=== PATIENT | female | born 1935 | race Two or more races ===

== ENCOUNTER 2019-09-18 19:37 | Inpatient (IN) | payer MEDICARE, OTHER ==
[2019-09-18] MEDS ORDERED: SODIUM CHLORIDE 0.9% 1,000 ML IV STA (20:18)
--- NOTE | 2019-09-18 21:18 | ED ---
Lower Extremity Injury HPI - General Chief Complaint: Skin/Abscess/Foreign Body Stated Complaint: Bilateral Leg Swelling Time Seen by Provider: 09/18/19 20:09 Source: patient Mode of arrival: wheelchair Limitations: no limitations - History of Present Illness Initial Comments: This is a 84-year-old female to the ER for evaluation of significant lower ex tremity weakness swelling and edema redness and erythema not feeling well. Patient's been getting worse despite outpatient Treatment. Patient states she is starting to have some significant pain and weeping from both legs difficulty to amply secondary to pain. MD Complaint: other (Bilateral lower extremity swelling and erythema with drainage) -: week(s) Injury: Ankle: Right, Left, Foot: Right, Left Type of Injury: other (No injury just significant sialitis infection) Place: home Severity: severe Severity scale (1-10): 10 Improves With: nothing Worsens With: weight bearing, movement, palpation Context: other (No injury just infection) Associated Symptoms: swelling, numbness - Related Data Home Medications Medication Instructions Recorded Confirmed Apixaban [Eliquis] 5 mg PO BID@0700,1900 09/18/19 09/18/19 Ascorbic Acid [Vitamin C] 500 mg PO DAILY 09/18/19 09/18/19 Atorvastatin [Lipitor] 10 mg PO HS 09/18/19 09/18/19 Carvedilol [Coreg] 6.25 mg PO BID 09/18/19 09/18/19 Cholecalciferol [Vitamin D3 (25 1,000 unit PO DAILY 09/18/19 09/18/19 Mcg = 1000 Iu)] Famotidine [Pepcid] 20 mg PO BID 09/18/19 09/18/19 Furosemide [Lasix] 40 mg PO DAILY 09/18/19 09/18/19 Losartan Potassium [Cozaar] 100 mg PO DAILY 09/18/19 09/18/19 Turmeric Root Extract [Turmeric] 500 mg PO DAILY 09/18/19 09/18/19 Vitamin E 400 unit PO HS 09/18/19 09/18/19 amLODIPine [Norvasc] 5 mg PO DAILY@1500 09/18/19 09/18/19 Allergies Allergy/AdvReac Type Severity Reaction Status Date / Time No Known Allergies Allergy Verified 09/18/19 21:28 Review of Systems ROS Statement: Those systems with pertinent positive or pertinent negative responses have been documented in the HPI. ROS Other: All systems not noted in ROS Statement are negative. Past Medical History Past Medical History: GERD/Reflux, Hyperlipidemia, Hypertension History of Any Multi-Drug Resistant Organisms: None Reported Past Surgical History: Hernia Repair Additional Past Surgical History / Comment(s): breast CA removal, "blood clot removal" Past Psychological History: No Psychological Hx Reported Smoking Status: Never smoker Past Alcohol Use History: None Reported Past Drug Use History: None Reported General Exam Limitations: no limitations General appearance: alert, in no apparent distress Head exam: Present: atraumatic, normocephalic, normal inspection Eye exam: Present: normal appearance, PERRL, EOMI. Absent: scleral icterus, conjunctival injection, periorbital swelling ENT exam: Present: normal exam, mucous membranes moist Neck exam: Present: normal inspection. Absent: tenderness, meningismus, lymphadenopathy Respiratory exam: Present: normal lung sounds bilaterally. Absent: respiratory distress, wheezes, rales, rhonchi, stridor Cardiovascular Exam: Present: regular rate, normal rhythm, normal heart sounds. Absent: systolic murmur, diastolic murmur, rubs, gallop, clicks GI/Abdominal exam: Present: soft, normal bowel sounds. Absent: distended, tenderness, guarding, rebound, rigid Extremities exam: Present: normal inspection, full ROM, tenderness, normal capillary refill, pedal edema, other (Bilateral lower extremity from foot to knee significant sialitis with erythema). Absent: joint swelling, calf tenderness Back exam: Present: normal inspection Neurological exam: Present: alert, oriented X3, CN II-XII intact Psychiatric exam: Present: normal affect, normal mood Skin exam: Present: warm, dry, intact, normal color. Absent: rash Course Vital Signs 09/18/19 09/18/19 19:48 21:15 Temperature 98.0 F Pulse Rate 83 85 Respiratory 18 20 Rate Blood Pressure 99/63 102/45 O2 Sat by Pulse 97 Oximetry - Reevaluation(s) Reevaluation #1: 09/18/19 22:08 Medical record is reviewed Reevaluation #2: 09/18/19 22:08 Patient says redness and swelling of both legs increasing despite treatment - Consultations Consultation #1: Spoke with Dr. maynor mcfarland to admit to Dr. Montague Medical Decision Making - Medical Decision Making 84 female DF for evaluation patient has significant bilateral lower extremity swelling edema erythema cellulitis with weeping and drainage. A she'll admit for IV antibiotics - Lab Data Result diagrams: 09/18/19 21:20 09/18/19 21:20 Lab Results 09/18/19 09/18/19 09/18/19 Range/Units 21:20 21:20 21:20 WBC 10.9 H (3.8-10.6) k/uL RBC 4.27 (3.80-5.40) m/uL Hgb 13.0 (11.4-16.0) gm/dL Hct 38.6 (34.0-46.0) % MCV 90.5 (80.0-100.0) fL MCH 30.4 (25.0-35.0) pg MCHC 33.6 (31.0-37.0) g/dL RDW 12.4 (11.5-15.5) % Plt Count 406 (150-450) k/uL Neutrophils % 79 % Lymphocytes % 14 % Monocytes % 4 % Eosinophils % 1 % Basophils % 0 % Neutrophils # 8.6 H (1.3-7.7) k/uL Lymphocytes # 1.5 (1.0-4.8) k/uL Monocytes # 0.5 (0-1.0) k/uL Eosinophils # 0.2 (0-0.7) k/uL Basophils # 0.0 (0-0.2) k/uL PT 10.4 (9.0-12.0) sec INR 1.0 (<1.2) APTT 27.9 (22.0-30.0) sec Sodium 133 L (137-145) mmol/L Potassium 4.2 (3.5-5.1) mmol/L Chloride 98 (98-107) mmol/L Carbon Dioxide 25 (22-30) mmol/L Anion Gap 10 mmol/L BUN 62 H (7-17) mg/dL Creatinine 0.79 (0.52-1.04) mg/dL Est GFR (CKD-EPI)AfAm 81 (>60 ml/min/1.73 sqM) Est GFR (CKD-EPI)NonAf 70 (>60 ml/min/1.73 sqM) Glucose 116 H (74-99) mg/dL Plasma Lactic Acid Edgar (0.7-2.0) mmol/L Calcium 9.4 (8.4-10.2) mg/dL Phosphorus 3.8 (2.5-4.5) mg/dL Magnesium 2.5 H (1.6-2.3) mg/dL Total Bilirubin 0.5 (0.2-1.3) mg/dL AST 19 (14-36) U/L ALT 15 (4-34) U/L Alkaline Phosphatase 87 (38-126) U/L Troponin I (0.000-0.034) ng/mL NT-Pro-B Natriuret Pep pg/mL Total Protein 7.0 (6.3-8.2) g/dL Albumin 3.7 (3.5-5.0) g/dL 09/18/19 09/18/19 09/18/19 Range/Units 21:20 21:20 21:20 WBC (3.8-10.6) k/uL RBC (3.80-5.40) m/uL Hgb (11.4-16.0) gm/dL Hct (34.0-46.0) % MCV (80.0-100.0) fL MCH (25.0-35.0) pg MCHC (31.0-37.0) g/dL RDW (11.5-15.5) % Plt Count (150-450) k/uL Neutrophils % % Lymphocytes % % Monocytes % % Eosinophils % % Basophils % % Neutrophils # (1.3-7.7) k/uL Lymphocytes # (1.0-4.8) k/uL Monocytes # (0-1.0) k/uL Eosinophils # (0-0.7) k/uL Basophils # (0-0.2) k/uL PT (9.0-12.0) sec INR (<1.2) APTT (22.0-30.0) sec Sodium (137-145) mmol/L Potassium (3.5-5.1) mmol/L Chloride (98-107) mmol/L Carbon Dioxide (22-30) mmol/L Anion Gap mmol/L BUN (7-17) mg/dL Creatinine (0.52-1.04) mg/dL Est GFR (CKD-EPI)AfAm (>60 ml/min/1.73 sqM) Est GFR (CKD-EPI)NonAf (>60 ml/min/1.73 sqM) Glucose (74-99) mg/dL Plasma Lactic Acid Edgar 1.1 (0.7-2.0) mmol/L Calcium (8.4-10.2) mg/dL Phosphorus (2.5-4.5) mg/dL Magnesium (1.6-2.3) mg/dL Total Bilirubin (0.2-1.3) mg/dL AST (14-36) U/L ALT (4-34) U/L Alkaline Phosphatase (38-126) U/L Troponin I <0.012 (0.000-0.034) ng/mL NT-Pro-B Natriuret Pep 992 pg/mL Total Protein (6.3-8.2) g/dL Albumin (3.5-5.0) g/dL - EKG Data -: EKG Interpreted by Me (EKG shows A. fib rate of 82, QRS 98 QTc 4:15) Disposition Clinical Impression: Bilateral lower leg cellulitis Disposition: ADMITTED IP TO THIS HOSP Condition: Good Is patient prescribed a controlled substance at d/c from ED?: No Referrals: Alex Gomez MD [Primary Care Provider] - 1-2 days
[2019-09-18 21:30] LABS: Basophils % (A) 0 %; Eosinophils # (A) 0.2 k/uL (0-0.7); Eosinophils % (A) 1 %; HCT 38.6 % (34.0-46.0); Lymphocytes # (A) 1.5 k/uL (1.0-4.8); Lymphocytes % (A) 14 %; MCH 30.4 pg (25.0-35.0); MCHC 33.6 g/dL (31.0-37.0); MCV 90.5 fL (80.0-100.0); Mean Platelet Volume 7.2; Monocytes # (A) 0.5 k/uL (0-1.0); Monocytes % (A) 4 %; Neutrophils # (A) 8.6 k/uL (1.3-7.7); Neutrophils % (A) 79 %; Platelet Count 406 k/uL (150-450); RBC 4.27 m/uL (3.80-5.40); RDW 12.4 % (11.5-15.5); WBC 10.9 k/uL (3.8-10.6)
[2019-09-18 21:44] LABS: Partial Thromboplastin Time 27.9 sec (22.0-30.0); Prothrombin Time 10.4 sec (9.0-12.0)
[2019-09-18 21:46] LABS: Albumin 3.7 g/dL (3.5-5.0); Calcium 9.4 mg/dL (8.4-10.2); Magnesium 2.5 mg/dL (1.6-2.3); Phosphorus 3.8 mg/dL (2.5-4.5); Potassium 4.2 mmol/L (3.5-5.1); Total Bilirubin 0.5 mg/dL (0.2-1.3)
[2019-09-18] MEDS ORDERED: VANCOMYCIN IV PER PHARMACY 1 EACH MISC MISCELLANE PRN (22:55)
[2019-09-18] MEDS ORDERED: VANCOMYCIN 1,750 MG in SODIUM CHLORIDE 0.9% 500 ML 500 ML IVPB ONE (23:15)
[2019-09-18 23:32] LABS: Appearance,Urine Cloudy (Clear); Bacteria,Urine Occasional /hpf; Bilirubin,Urine Negative (Negative); Blood,Urine Negative (Negative); Color,Urine Yellow; Glucose,Urine (UA) Negative (Negative); Hyaline Casts,Urine 5 /lpf (0-2); Ketones,Urine Negative (Negative); Leukocyte Esterase,Urine Moderate (Negative); Mucus,Urine Rare /hpf; Nitrite,Urine Negative (Negative); Protein,Urine Negative (Negative); RBC,Urine 27 /hpf (0-5); Squamous Epithelial Cell,Urine 3 /hpf (0-4); Urobilinogen,Urine <2.0 mg/dL (<2.0); WBC,Urine 9 /hpf (0-5)
[2019-09-19] MEDS: ACETAMINOPHEN TAB 325 MG TAB PO PRN (01:29)
[2019-09-19 08:06] LABS: African American GFR (CKD) >90 (>60 ml/min/1.73 sqM); Non-African American GFR(CKD) 84 (>60 ml/min/1.73 sqM)
[2019-09-19] MEDS: ENOXAPARIN 40 MG/0.4 ML SYRINGE SQ SCH (08:17)
[2019-09-19] MEDS: FAMOTIDINE 20 MG TAB PO SCH ×2 (08:28→20:53)
[2019-09-19] MEDS: LOSARTAN 50 MG TAB PO SCH (08:28)
[2019-09-19] MEDS: CHOLECALCIFEROL 1,000 UNIT TAB PO SCH (08:28)
[2019-09-19] MEDS: FUROSEMIDE 40 MG TAB PO SCH (08:28)
[2019-09-19] MEDS: ASCORBIC ACID 500 MG TAB PO SCH (08:28)
--- NOTE | 2019-09-19 11:42 | US ---
EXAMINATION TYPE: US venous doppler duplex LE DATE OF EXAM: 09/19/2019 9:16 AM COMPARISON: NONE CLINICAL HISTORY: edema, pain. SIDE PERFORMED: Bilateral TECHNIQUE: The lower extremity deep venous system is examined utilizing real time linear array sonog glenys with graded compression, doppler sonography and color-flow sonography. VESSELS IMAGED: External Iliac Vein (EIV) Common Femoral Vein Deep Femoral Vein Greater Saphenous Vein * Femoral Vein Popliteal Vein Small Saphenous Vein * Proximal Calf Veins, not seen due to swelling and large body habitus (* superficial vessels) Patient of large body habitus. There is normal flow, compressibility, vascular waveforms Right Leg: Negative for DVT Left Leg: Negative for DVT Edema channels are noted within the right lower extremity subcutaneous tissues. 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 IMPRESSION: No evident deep venous thrombosis at or above the knees. 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
--- NOTE | 2019-09-19 12:20 | P.HPIM ---
History of Present Illness H&P Date: 09/19/19 Chief Complaint: Redness bilat legs This is an 84-year-old female patient of Dr. Alex Gomez with past medical history of DVT in the left lower extremity subsequently finding PFO which has been closed by Dr. Pope and DVT of the right arm status post thrombectomy, hypertension, hyperlipidemia, right-sided breast cancer status post lumpectomy and radiation therapy without chemotherapy. Patient states that she has had ongoing problems with lower extremity edema and redness this been ongoing for several months but due to Covid concerns, did not seek treatment. She did finally see her doctor 2 weeks ago and was placed on Keflex and completed a 10 day course. She was continuing to have significant pain and weeping from both legs. She denies any fever or chills. On Wednesday she was trying to reach her PCP by phone but her daughter wanted her to come into the hospital for evaluation. Patient came into [facility] emergency center for evaluation. She was afebrile, heart rate 83, blood pressure 99/63, pulse ox 97% on room air. Yazmin BC 10.9, hemoglobin 13, platelet count 406. Sodium 133, potassium 4.2, chloride 98, CO2 25, BUN 62 and creatinine 0.79, blood sugar 116. Magnesium 2.5, liver function tests within normal limits. Troponin negative. ProBNP 992. EKG atrial fibrillation at a rate of 82. No previous history of atrial fibrillation noted. Ultrasound of bilateral lower legs negative for DVT. 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 Patient was started on Rocephin and vancomycin and admitted to the [facility] floor. Consults placed with wound care team, Dr. Benoit and cardiology. Review of Systems Constitutional: Reports fatigue, Denies anorexia, Denies chills, Denies fever, Denies lethargy, Denies malaise, Denies poor appetite, Denies weight loss Eyes: denies blurred vision, denies pain Ears: bilateral: decreased hearing (chronic) Ears, nose, mouth and throat: Denies dysphagia, Denies headache, Denies nasal congestion, Denies nasal discharge, Denies sore throat, Denies vertigo Cardiovascular: Reports leg edema, Denies chest pain, Denies dyspnea on exertion, Denies edema, Denies lightheadedness, Denies orthopnea, Denies palpitations, Denies shortness of breath, Denies syncope Respiratory: Denies cough, Denies cough with sputum, Denies dyspnea, Denies excessive sputum, Denies hemoptysis, Denies home oxygen, Denies respiratory infections, Denies wheezing Gastrointestinal: Denies abdominal pain, Denies diarrhea, Denies loss of appetite, Denies nausea, Denies vomiting Genitourinary: Denies dysuria, Denies hematuria, Denies urgency, Denies urinary frequency Menstruation: Reports postmenopausal Musculoskeletal: Reports muscle weakness, Denies frequent falls, Denies myalgias Integumentary: Reports color changes, Reports darkening of skin, Reports lesions, Reports sores, Reports wounds, Denies pruritus, Denies rash Psychiatric: Denies anxiety, Denies depression Endocrine: Denies fatigue, Denies weight change Past Medical History Past Medical History: Deep Vein Thrombosis (DVT), GERD/Reflux, Hyperlipidemia, Hypertension History of Any Multi-Drug Resistant Organisms: None Reported Past Surgical History: Hernia Repair Additional Past Surgical History / Comment(s): breast CA right-sided lumpectomy and radiation therapy at [facility], ventral hernia repair, hysterectomy, repair of PFO and thrombectomy of the right arm. Past Anesthesia/Blood Transfusion Reactions: No Reported Reaction Past Psychological History: No Psychological Hx Reported Smoking Status: Never smoker Past Alcohol Use History: None Reported Additional Past Alcohol Use History / Comment(s): Patient is a lifelong nonsmoker, no marijuana use, no illicit drug use or marijuana use. Patient is and her daughter lives with her. She worked in the past for [employer] and the [employer]. Past Drug Use History: None Reported - Past Family History Mother Family Medical History: CVA/TIA Additional Family Medical History / Comment(s): Pt. states mother at 52 from a stroke Father Additional Family Medical History / Comment(s): Father at age 57 from a motor vehicle accident. Sister(s) Additional Family Medical History / Comment(s): The patient has 2 sisters. One sister has from breast cancer and one is alive with no major medical problems. Patient does not have any brothers. Patient has 4 children with no major medical problems. Medications and Allergies Home Medications Medication Instructions Recorded Confirmed Type Apixaban [Eliquis] 5 mg PO BID@0700,1900 09/18/19 09/18/19 History Ascorbic Acid [Vitamin C] 500 mg PO DAILY 09/18/19 09/18/19 History Atorvastatin [Lipitor] 10 mg PO HS 09/18/19 09/18/19 History Carvedilol [Coreg] 6.25 mg PO BID 09/18/19 09/18/19 History Cholecalciferol [Vitamin D3 (25 1,000 unit PO DAILY 09/18/19 09/18/19 History Mcg = 1000 Iu)] Famotidine [Pepcid] 20 mg PO BID 09/18/19 09/18/19 History Furosemide [Lasix] 40 mg PO DAILY 09/18/19 09/18/19 History Losartan Potassium [Cozaar] 100 mg PO DAILY 09/18/19 09/18/19 History Turmeric Root Extract [Turmeric] 500 mg PO DAILY 09/18/19 09/18/19 History Vitamin E 400 unit PO HS 09/18/19 09/18/19 History amLODIPine [Norvasc] 5 mg PO DAILY@1500 09/18/19 09/18/19 History Allergies Allergy/AdvReac Type Severity Reaction Status Date / Time No Known Allergies Allergy Verified 09/18/19 21:28 Physical Exam Vitals: Vital Signs Temp Pulse Pulse Resp BP BP Pulse Ox 09/19/19 06:50 98.4 F 95 16 131/66 95 09/18/19 23:35 97.5 F L 90 14 106/64 98 09/18/19 23:14 99.2 F 88 20 113/56 98 09/18/19 22:00 99.1 F 90 20 119/66 98 09/18/19 21:15 85 20 102/45 97 09/18/19 19:48 98.0 F 83 18 99/63 Intake and Output 09/18/19 09/19/19 09/19/19 22:59 06:59 14:59 Other: Voiding Method Bedside Commode # Voids 1 Weight 104.326 kg 104.326 kg Gen: This is an obese 84-year-old female. She is resting in bed and appears to be comfortable and in no acute distress. HEENT: Head is atraumatic, normocephalic. Pupils equal, round. Sclerae is anicteric. Patient very hard of hearing. NECK: Supple. No JVD. No lymphadenopathy. No thyromegaly. LUNGS: Clear to auscultation. No wheezes or rhonchi. No intercostal retractions. HEART: Regular rate and rhythm. Systolic murmur at the apex. ABDOMEN: Soft. Bowel sounds are present. No masses. No tenderness. EXTREMITIES: 1-2+ pedal edema. Erythema and open areas of weeping to the bilateral lower extremities. NEUROLOGICAL: Patient is awake, alert and oriented x3. Cranial nerves 2 through 12 are grossly intact. Results CBC & Chem 7: 09/18/19 21:20 09/19/19 07:20 Labs: Abnormal Lab Results - Last 24 Hours (Table) 09/18/19 09/18/19 09/18/19 Range/Units 21:20 21:20 23:20 WBC 10.9 H (3.8-10.6) k/uL Neutrophils # 8.6 H (1.3-7.7) k/uL Sodium 133 L (137-145) mmol/L BUN 62 H (7-17) mg/dL Glucose 116 H (74-99) mg/dL Magnesium 2.5 H (1.6-2.3) mg/dL Urine Appearance Cloudy H (Clear) Ur Leukocyte Esterase Moderate H (Negative) Urine RBC 27 H (0-5) /hpf Urine WBC 9 H (0-5) /hpf Urine Bacteria Occasional H (None) /hpf Hyaline Casts 5 H (0-2) /lpf Urine Mucus Rare H (None) /hpf Thrombosis Risk Factor Assmnt - DVT/VTE Prophylaxis DVT/VTE Prophylaxis: Pharmacologic Prophylaxis ordered - Choose All That Apply Each Factor Represents 1 point: Obesity (BMI >25), Swollen legs (current) Each Risk Factor Represents 3 Points: Age 75 years or older, History of DVT/PE Thrombosis Risk Factor Assessment Total Risk Factor Score: 8 Thrombosis Risk Factor Assessment Level: High Risk Assessment and Plan Plan: 1. Bilateral lower extremity cellulitis, failed outpatient treatment with oral Keflex. Patient is currently on vancomycin and ceftriaxone. Consult placed with wound care team and infectious disease. Bilateral lower extremity ultrasound negative for DVT. Wound culture in process. 2. Hypertension. Continue Norvasc 5 mg daily, losartan 100 mg daily, Coreg 6.25 mg twice daily, Lasix 40 mg daily. 3. Possible new onset of atrial fibrillation. Consult with cardiology. Patient is known to be on Coreg and eliquis. Patient denies history of atrial fibrillation. 4. History of PFO, surgically close by Dr. Pope. 5. History of left lower extremity DVT and left arm DVT status post thrombectomy. Continue eliquis. 6. Hyperlipidemia. Continue atorvastatin 10 mg at bedtime. 7. History of right-sided breast cancer status post lumpectomy and radiation therapy, stable 8. DVT prophylaxis. Eliquis. 9. GERD and GI prophylaxis. Pepcid. 10. COVID-19 infection testing in process Patient will be admitted to the hospital for a minimum of 2 night stay. Discharge plan: most likely home, possible home care need. Impression and plan of care have been directed as dictated by the signing physician. Radhika Gu nurse practitioner acting as scribe for signing physician.
--- NOTE | 2019-09-19 12:23 | P.CONS ---
History of Present Illness - Reason for Consult Consult date: 09/19/19 Wound care - History of Present Illness This is an 84-year-old patient being seen by the wound care center on [address] for nonhealing ulcerations to bilateral lower extremities. Patient states that the ulceration started about 6 weeks ago. The right leg is worse than the left leg. Patient has increased redness to bilateral lower extremity. The right lower extremity has purulent drainage. Patient complains of pain more to the right than left especially with palpation. Patient's past medical history includes DVT, acid reflux, hyperlipidemia, hypertension. Ulcers obtained of bilateral lower legs awaiting results. Review of Systems Review Of Systems: Constitutional: Reports pain to bilateral lower extremities. No fever, no chills, no night sweats. No weight change. No weakness, fatigue or lethargy. No daytime sleepiness. Integumentary:reports wounds, no lesions. No rash or pruritus. No unusual bruising. No change in hair or nails. Past Medical History Past Medical History: Deep Vein Thrombosis (DVT), GERD/Reflux, Hyperlipidemia, Hypertension Additional Past Medical History / Comment(s): Pt. states having multiple abdominal hernias in the past History of Any Multi-Drug Resistant Organisms: None Reported Past Surgical History: Hernia Repair Additional Past Surgical History / Comment(s): breast CA removal, "blood clot removal" Past Anesthesia/Blood Transfusion Reactions: No Reported Reaction Past Psychological History: No Psychological Hx Reported Smoking Status: Never smoker Past Alcohol Use History: None Reported Past Drug Use History: None Reported - Past Family History Mother Family Medical History: CVA/TIA Additional Family Medical History / Comment(s): Pt. states mother at 52 from a stroke Medications and Allergies Home Medications Medication Instructions Recorded Confirmed Type Apixaban [Eliquis] 5 mg PO BID@0700,1900 09/18/19 09/18/19 History Ascorbic Acid [Vitamin C] 500 mg PO DAILY 09/18/19 09/18/19 History Atorvastatin [Lipitor] 10 mg PO HS 09/18/19 09/18/19 History Carvedilol [Coreg] 6.25 mg PO BID 09/18/19 09/18/19 History Cholecalciferol [Vitamin D3 (25 1,000 unit PO DAILY 09/18/19 09/18/19 History Mcg = 1000 Iu)] Famotidine [Pepcid] 20 mg PO BID 09/18/19 09/18/19 History Furosemide [Lasix] 40 mg PO DAILY 09/18/19 09/18/19 History Losartan Potassium [Cozaar] 100 mg PO DAILY 09/18/19 09/18/19 History Turmeric Root Extract [Turmeric] 500 mg PO DAILY 09/18/19 09/18/19 History Vitamin E 400 unit PO HS 09/18/19 09/18/19 History amLODIPine [Norvasc] 5 mg PO DAILY@1500 09/18/19 09/18/19 History Allergies Allergy/AdvReac Type Severity Reaction Status Date / Time No Known Allergies Allergy Verified 09/18/19 21:28 Physical Exam Vitals: Vital Signs Temp Pulse Pulse Resp BP BP Pulse Ox 09/19/19 06:50 98.4 F 95 16 131/66 95 09/18/19 23:35 97.5 F L 90 14 106/64 98 09/18/19 23:14 99.2 F 88 20 113/56 98 09/18/19 22:00 99.1 F 90 20 119/66 98 09/18/19 21:15 85 20 102/45 97 09/18/19 19:48 98.0 F 83 18 99/63 Intake and Output 09/18/19 09/19/19 09/19/19 22:59 06:59 14:59 Other: Voiding Method Bedside Commode # Voids 1 Weight 104.326 kg 104.326 kg Physical exam: General Appearance: Alert, cooperative, no distress, appears stated age. Skin: Left lower extremity shows erythema and weeping to the anterior aspect. The ulceration is Limited to skin breakdown. With serosanguineous drainage. Wound edges are attached to the wound bed. Measuring approximately 0.2 x 0.3 x 0.1 cm. Ulcerations to the right lower extremity calf is circumferential. With clusters. Ulcerations have fat layer exposure, with significant amount of adherent Slough and purulent drainage. Tenderness to touch. Periwound has erythema and induration. all other Skin color, texture, tugor normal, no rashes or lesions. Neurologic: Alert oriented x3 Results CBC & Chem 7: 09/18/19 21:20 09/19/19 07:20 Labs: Abnormal Lab Results - Last 24 Hours (Table) 09/18/19 09/18/1909/17/20 Range/Units 21:20 21:20 23:20 WBC 10.9 H (3.8-10.6) k/uL Neutrophils # 8.6 H (1.3-7.7) k/uL Sodium 133 L (137-145) mmol/L BUN 62 H (7-17) mg/dL Glucose 116 H (74-99) mg/dL Magnesium 2.5 H (1.6-2.3) mg/dL Urine Appearance Cloudy H (Clear) Ur Leukocyte Esterase Moderate H (Negative) Urine RBC 27 H (0-5) /hpf Urine WBC 9 H (0-5) /hpf Urine Bacteria Occasional H (None) /hpf Hyaline Casts 5 H (0-2) /lpf Urine Mucus Rare H (None) /hpf Microbiology - Last 24 Hours (Table) 09/19/19 02:00 Wound Culture - Preliminary Leg - Right 09/19/19 02:05 Wound Culture - Preliminary Leg - Left Assessment and Plan (1) Nonhealing ulcer of right lower extremity with fat layer exposed Current Visit: Yes Status: Acute Code(s): L97.912 - NON-PRS [facility] UNSP PRT OF R LOW LEG W FAT LAYER EXPOSED SNOMED Code(s): 90728685 (2) Nonhealing ulcer of left lower extremity limited to breakdown of skin Current Visit: Yes Status: Acute Code(s): L97.921 - NON-PRS [facility] UNSP PRT OF L LOW LEG LIMITED TO BRKDWN SKIN SNOMED Code(s): 44932485 (3) Bilateral lower leg cellulitis Current Visit: Yes Status: Acute Code(s): L03.116 - CELLULITIS OF LEFT LOWER LIMB; L03.115 - CELLULITIS OF RIGHT LOWER LIMB SNOMED Code(s): 419085286 Plan: Awaiting culture results. Left lower extremity: Apply zinc barrier cream, wrap with rolled gauze, and elastic Skip wrap. Right lower extremity: Apply honey alginate, feeling was gauze, dry gauze, rolled gauze and secure with paper tape, wrap with Skip elastic wrap. Elevate legs at least 30 minutes 3 times a day. Patient would benefit from a debridement and continued wound care and outpatient setting. Discussed with patient who was agreeable. Thank you kindly for the consultation. Any questions please contact the wound care center DNP note has been reviewed and discussed with Dr. Gray and the impression and plan of care has been directed as dictated.
[2019-09-19] MEDS: VANCOMYCIN 1,750 MG in SODIUM CHLORIDE 0.9% 500 ML 500 ML IVPB SCH (16:53)
[2019-09-19] MEDS: amLODIPine 5 MG TAB PO SCH (16:53)
[2019-09-19] MEDS: CARVEDILOL 6.25 MG TAB PO SCH (16:53)
[2019-09-19] MEDS: APIXABAN 5 MG TAB PO SCH (20:53)
[2019-09-19] MEDS: ATORVASTATIN 10 MG TAB PO SCH (20:53)
--- NOTE | 2019-09-19 22:30 | P.CONS ---
History of Present Illness - Reason for Consult Consult date: 09/19/19 Bilateral leg cellulitis Requesting physician: Darrius Montague - Chief Complaint bilateral leg swelling and redness x weeks - History of Present Illness Patient is 84-year female with a past medical he significant for DVT left lower extremity and this patient apparently have chronic swelling of the lower extremity patient is presenting to the ER with worsening swelling and redness to bilateral lower extremity worse on the right leg than on the left leg that apparently has been going on for the last 2 to 3 months patient did want to see her primary care physician the patient treated with oral Keflex with the patient has completed however the patient continued to have a persistent swelling redness to both legs right greater than the left with some superficial ulceration and drainage patient described the pain to be more of a dull aching at times sharp worse with touching of the leg intensity 4 to 5-10 had no radiation patient did have some yellowish drainage from her 3 superficial wound with the symptom the patient has been evaluated by the ER physician on arrival to the ER the patient has been afebrile patient did have a white count of 10.9 kidney function has been normal local wound culture has been obtained patient did have a lower extremity Doppler negative for DVT patient has been evaluated by the wound care team was applied local care with the honey alginate patient is currently on Rocephin 1 g daily and vancomycin infectious disease has been consulted for further management of antibiotic therapy Review of Systems positive point has been mentioned in HPI rest of the systems are negative. Past Medical History Past Medical History: Deep Vein Thrombosis (DVT), GERD/Reflux, Hyperlipidemia, Hypertension Additional Past Medical History / Comment(s): Pt. states having multiple abdominal hernias in the past History of Any Multi-Drug Resistant Organisms: None Reported Past Surgical History: Hernia Repair Additional Past Surgical History / Comment(s): breast CA removal, "blood clot removal" Past Anesthesia/Blood Transfusion Reactions: No Reported Reaction Past Psychological History: No Psychological Hx Reported Smoking Status: Never smoker Past Alcohol Use History: None Reported Past Drug Use History: None Reported - Past Family History Mother Family Medical History: CVA/TIA Additional Family Medical History / Comment(s): Pt. states mother at 52 from a stroke Father Additional Family Medical History / Comment(s): Father at age 57 from a motor vehicle accident. Sister(s) Additional Family Medical History / Comment(s): The patient has 2 sisters. One sister has from breast cancer and one is alive with no major medical problems. Patient does not have any brothers. Patient has 4 children with no major medical problems. Medications and Allergies Home Medications Medication Instructions Recorded Confirmed Type Apixaban [Eliquis] 5 mg PO BID@0700,1900 09/18/19 09/18/19 History Ascorbic Acid [Vitamin C] 500 mg PO DAILY 09/18/19 09/18/19 History Atorvastatin [Lipitor] 10 mg PO HS 09/18/19 09/18/19 History Carvedilol [Coreg] 6.25 mg PO BID 09/18/19 09/18/19 History Cholecalciferol [Vitamin D3 (25 1,000 unit PO DAILY 09/18/19 09/18/19 History Mcg = 1000 Iu)] Famotidine [Pepcid] 20 mg PO BID 09/18/19 09/18/19 History Furosemide [Lasix] 40 mg PO DAILY 09/18/19 09/18/19 History Losartan Potassium [Cozaar] 100 mg PO DAILY 09/18/19 09/18/19 History Turmeric Root Extract [Turmeric] 500 mg PO DAILY 09/18/19 09/18/19 History Vitamin E 400 unit PO HS 09/18/19 09/18/19 History amLODIPine [Norvasc] 5 mg PO DAILY@1500 09/18/19 09/18/19 History Allergies Allergy/AdvReac Type Severity Reaction Status Date / Time acetaminophen [From Vicodin] AdvReac Intermediate Unknown Verified 09/19/19 21:05 hydrocodone [From Vicodin] AdvReac Intermediate Unknown Verified 09/19/19 21:05 Physical Exam Vitals: Vital Signs Temp Pulse Pulse Resp BP BP Pulse Ox 09/19/19 14:08 98.6 F 85 16 93/59 96 09/19/19 06:50 98.4 F 95 16 131/66 95 09/18/19 23:35 97.5 F L 90 14 106/64 98 09/18/19 23:14 99.2 F 88 20 113/56 98 09/18/19 22:00 99.1 F 90 20 119/66 98 09/18/19 21:15 85 20 102/45 97 09/18/19 19:48 98.0 F 83 18 99/63 Intake and Output 09/18/19 09/19/19 09/19/19 22:59 06:59 14:59 Other: Voiding Method Bedside Commode # Voids 1 2 Weight 104.326 kg 104.326 kg GENERAL DESCRIPTION: Elderly female lying in bed, no distress. No tachypnea or accessory muscle of respiration use. HEENT: Shows Pallor , no scleral icterus. Oral mucous membrane is dry. NECK: Trachea central, no thyromegaly. LUNGS: Unlabored breathing. Clear to auscultation anteriorly. No wheeze or crackle. HEART: S1, S2, regular rate and rhythm. ABDOMEN: Soft, no tenderness , guarding or rigidity EXTREMITIES: Bilateral lower extremity with the significant swelling and evidence of superficial venous stasis ulcer and cellulitis more marked on the right leg. SKIN: No rash, no masses palpable. NEUROLOGICAL: The patient is awake, alert, oriented x3, mood and affect normal. Results CBC & Chem 7: 09/18/19 21:20 09/19/19 07:20 Labs: Abnormal Lab Results - Last 24 Hours (Table) 09/18/19 09/18/19 09/18/19 Range/Units 21:20 21:20 23:20 WBC 10.9 H (3.8-10.6) k/uL Neutrophils # 8.6 H (1.3-7.7) k/uL Sodium 133 L (137-145) mmol/L BUN 62 H (7-17) mg/dL Glucose 116 H (74-99) mg/dL Magnesium 2.5 H (1.6-2.3) mg/dL Urine Appearance Cloudy H (Clear) Ur Leukocyte Esterase Moderate H (Negative) Urine RBC 27 H (0-5) /hpf Urine WBC 9 H (0-5) /hpf Urine Bacteria Occasional H (None) /hpf Hyaline Casts 5 H (0-2) /lpf Urine Mucus Rare H (None) /hpf Microbiology - Last 24 Hours (Table) 09/19/19 02:00 Wound Culture - Preliminary Leg - Right 09/19/19 02:05 Wound Culture - Preliminary Leg - Left Assessment and Plan Assessment: -patient with bilateral lower extremity venous stasis ulcers with second cellulitis right greater than the left and this patient has failed outpatient oral Keflex therapy with concern for possible resistant gram-positive or gram- negative pathogen (1) Bilateral lower leg cellulitis Current Visit: Yes Status: Acute Code(s): L03.116 - CELLULITIS OF LEFT LOWER LIMB; L03.115 - CELLULITIS OF RIGHT LOWER LIMB SNOMED Code(s): 292359272 Plan: 1-vancomycin pharmacy to dose her with a target trough of 15 while watching her kidney function and Vanco trough closely. Along with Rocephin 1 g daily should be elevated reticulocyte at this point 2-local wound care per wound care team We will follow on clinical condition and cultures to further adjust medication if needed Thank you for this consultation we will follow the patient along with you Time with Patient: Greater than 30
[2019-09-20] MEDS: ACETAMINOPHEN TAB 325 MG TAB PO PRN (05:05)
[2019-09-20] MEDS: ASCORBIC ACID 500 MG TAB PO SCH (07:46)
[2019-09-20] MEDS: FAMOTIDINE 20 MG TAB PO SCH ×2 (07:46→19:59)
[2019-09-20] MEDS: LOSARTAN 50 MG TAB PO SCH (07:46)
[2019-09-20] MEDS: CARVEDILOL 6.25 MG TAB PO SCH (07:46)
[2019-09-20] MEDS: APIXABAN 5 MG TAB PO SCH ×2 (07:47→19:59)
[2019-09-20] MEDS: ENOXAPARIN 40 MG/0.4 ML SYRINGE SQ SCH (07:47)
[2019-09-20] MEDS: FUROSEMIDE 40 MG TAB PO SCH (07:47)
[2019-09-20] MEDS: CHOLECALCIFEROL 1,000 UNIT TAB PO SCH (07:47)
[2019-09-20 08:10] LABS: Basophils % (A) 0 %; Eosinophils % (A) 1 %; HGB 11.1 gm/dL (11.4-16.0); Lymphocytes % (A) 15 %; MCH 29.3 pg (25.0-35.0); MCHC 31.6 g/dL (31.0-37.0); MCV 92.5 fL (80.0-100.0); Mean Platelet Volume 7.2; Monocytes # (A) 0.5 k/uL (0-1.0); Monocytes % (A) 7 %; Neutrophils # (A) 5.3 k/uL (1.3-7.7); Neutrophils % (A) 76 %; Platelet Count 297 k/uL (150-450); RBC 3.78 m/uL (3.80-5.40); RDW 12.8 % (11.5-15.5); WBC 6.9 k/uL (3.8-10.6)
[2019-09-20 08:20] LABS: ALT 11 U/L (4-34); AST 17 U/L (14-36); African American GFR (CKD) >90 (>60 ml/min/1.73 sqM); Albumin 2.7 g/dL (3.5-5.0); Alkaline Phosphatase 65 U/L (38-126); Anion Gap 5 mmol/L; Blood Urea Nitrogen 23 mg/dL (7-17); Calcium 8.4 mg/dL (8.4-10.2); Carbon Dioxide 27 mmol/L (22-30); Chloride 104 mmol/L (98-107); Glucose 98 mg/dL (74-99); Non-African American GFR(CKD) 82 (>60 ml/min/1.73 sqM); Potassium 4.3 mmol/L (3.5-5.1); Sodium 136 mmol/L (137-145); Total Bilirubin 0.4 mg/dL (0.2-1.3); Total Protein 5.5 g/dL (6.3-8.2)
[2019-09-20] MEDS: VANCOMYCIN 1,750 MG in SODIUM CHLORIDE 0.9% 500 ML 500 ML IVPB SCH ×2 (09:30→22:56)
[2019-09-20] MEDS ORDERED: CARVEDILOL 6.25 MG TAB PO STA (12:45)
--- NOTE | 2019-09-20 12:46 | P.CRDCN ---
History of Present Illness History of present illness: HISTORY OF PRESENTING ILLNESS This is a pleasant 84-year-old female past medical history significant for atrial fibrillation, mitral regurgitation, aortic regurgitation, ASD status post percutaneous repair 2012, hypertension and dyslipidemia. She follows in the office with Dr. Pope. We have been asked to see in consultation for atrial fibrillation. The patient presented to the hospital with symptoms of bilateral lower extremity redness and swelling. She has been diagnosed with cellulitis and is currently maintained on IV antibiotics. Initial EKG on admission revealed atrial fibrillation with controlled ventricular rate. This was not documented in the patient's past medical history nor was she able to verbalize a known history of A. fib. She is maintained on Eliquis 5 mg twice a day however the patient does have a history of DVT status post atherectomy. She is seen and examined resting comfortably sitting up in bed in no acute distress. She denies symptoms of chest pain, shortness of breath, dizziness or palpitations. Bilateral lower extremity venous Doppler negative for DVT. Laboratory data reviewed, WBC 6.9, hemoglobin 11.1, platelets 297, sodium 136, potassium 4.3, creatinine 0.67, magnesium on admission 2.5, cardiac enzymes negative 1, NT proBNP 992 and albumin 2.7. Current daily cardiac medications include Eliquis 5 mg twice a day, Coreg 6.25 mg twice a day, atorvastatin 10 mg at bedtime, amlodipine 5 mg daily, losartan 100 mg daily and Lasix 40 mg daily. Most recent stress test performed in the office June 2018 revealed preserved LV systolic function with ejection fraction 55%, atrial septal device in place, moderate mitral regurgitation and moderate aortic regurgitation noted. REVIEW OF SYSTEMS At the time of my exam: CONSTITUTIONAL: Denies fever or chills. CARDIOVASCULAR: Denies chest pain, shortness of breath, orthopnea, PND or palpitations. RESPIRATORY: Denies cough. GASTROINTESTINAL: Denies abdominal pain, diarrhea, constipation, nausea or vomiting. MUSCULOSKELETAL: Denies myalgias. NEUROLOGIC: Denies numbness, tingling or weakness. ENDOCRINE: Denies fatigue, weight change, polydipsia or polyurina. GENITOURINARY: Denies burning, hematuria or urgency with micturation. HEMATOLOGIC: Denies history of anemia or bleeding. PHYSICAL EXAMINATION Blood pressure 118/64 heart rate 101 afebrile and maintaining oxygen saturation on room air. CONSTITUTIONAL: No apparent distress. HEENT: Head is normocephalic. Pupils are equal, round. Sclerae anicteric. Mucous membranes of the mouth are moist. No JVD. No carotid bruit. CHEST EXAMINATION: Lungs are clear to auscultation. No chest wall tenderness is noted on palpation or with deep breathing. HEART EXAMINATION: Irregular rate and rhythm. S1, S2 heard. Systolic ejection murmur at the left sternal border and base, no gallops or rub. ABDOMEN: Soft, nontender. Positive bowel sounds. EXTREMITIES: 2+ peripheral pulses, bilateral Skip wraps in place and no calf tenderness. NEUROLOGIC EXAMINATION: Patient is awake, alert and oriented x3. 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 Continue eliquis for thromboembolic protection. Thank you kindly for this consultation. Nurse Practitioner note has been reviewed, I agree with a documented findings and plan of care. Patient was seen and examined. Past Medical History Past Medical History: Deep Vein Thrombosis (DVT), GERD/Reflux, Hyperlipidemia, Hypertension Additional Past Medical History / Comment(s): Pt. states having multiple abdominal hernias in the past History of Any Multi-Drug Resistant Organisms: None Reported Past Surgical History: Hernia Repair Additional Past Surgical History / Comment(s): breast CA removal, "blood clot removal" Past Anesthesia/Blood Transfusion Reactions: No Reported Reaction Past Psychological History: No Psychological Hx Reported Smoking Status: Never smoker Past Alcohol Use History: None Reported Past Drug Use History: None Reported - Past Family History Mother Family Medical History: CVA/TIA Additional Family Medical History / Comment(s): Pt. states mother at 52 from a stroke Father Additional Family Medical History / Comment(s): Father at age 57 from a motor vehicle accident. Sister(s) Additional Family Medical History / Comment(s): The patient has 2 sisters. One sister has from breast cancer and one is alive with no major medical problems. Patient does not have any brothers. Patient has 4 children with no major medical problems. Medications and Allergies Home Medications Medication Instructions Recorded Confirmed Type Apixaban [Eliquis] 5 mg PO BID@0700,1900 09/18/19 09/18/19 History Ascorbic Acid [Vitamin C] 500 mg PO DAILY 09/18/19 09/18/19 History Atorvastatin [Lipitor] 10 mg PO HS 09/18/19 09/18/19 History Carvedilol [Coreg] 6.25 mg PO BID 09/18/19 09/18/19 History Cholecalciferol [Vitamin D3 (25 1,000 unit PO DAILY 09/18/19 09/18/19 History Mcg = 1000 Iu)] Famotidine [Pepcid] 20 mg PO BID 09/18/19 09/18/19 History Furosemide [Lasix] 40 mg PO DAILY 09/18/19 09/18/19 History Losartan Potassium [Cozaar] 100 mg PO DAILY 09/18/19 09/18/19 History Turmeric Root Extract [Turmeric] 500 mg PO DAILY 09/18/19 09/18/19 History Vitamin E 400 unit PO HS 09/18/19 09/18/19 History amLODIPine [Norvasc] 5 mg PO DAILY@1500 09/18/19 09/18/19 History Allergies Allergy/AdvReac Type Severity Reaction Status Date / Time acetaminophen [From Vicodin] AdvReac Intermediate Unknown Verified 09/19/19 21:05 hydrocodone [From Vicodin] AdvReac Intermediate Unknown Verified 09/19/19 21:05 Physical Exam Vitals: Vital Signs Temp Pulse Resp BP Pulse Ox 09/20/19 07:00 98.7 F 101 H 16 118/64 95 09/20/19 00:20 99.4 F 96 15 112/71 95 09/19/19 20:55 112/63 09/19/19 18:57 98.9 F 89 14 89/53 95 09/19/19 14:08 98.6 F 85 16 93/59 96 Intake and Output 09/19/19 09/20/19 09/20/19 22:59 06:59 14:59 Other: Voiding Method Bedside Commode # Voids 1 1 # Bowel Movements 1 Results 09/20/19 07:44 09/20/19 07:28 Cardiac Enzymes 09/20/19 Range/Units 07:28 AST 17 (14-36) U/L CBC 09/20/19 Range/Units 07:44 WBC 6.9 (3.8-10.6) k/uL RBC 3.78 L (3.80-5.40) m/uL Hgb 11.1 L (11.4-16.0) gm/dL Hct 35.0 (34.0-46.0) % Plt Count 297 (150-450) k/uL Comprehensive Metabolic Panel 09/20/19 Range/Units 07:28 Sodium 136 L (137-145) mmol/L Potassium 4.3 (3.5-5.1) mmol/L Chloride 104 (98-107) mmol/L Carbon Dioxide 27 (22-30) mmol/L BUN 23 H (7-17) mg/dL Creatinine 0.67 (0.52-1.04) mg/dL Glucose 98 (74-99) mg/dL Calcium 8.4 (8.4-10.2) mg/dL AST 17 (14-36) U/L ALT 11 (4-34) U/L Alkaline Phosphatase 65 (38-126) U/L Total Protein 5.5 L (6.3-8.2) g/dL Albumin 2.7 L (3.5-5.0) g/dL Current Medications Generic Name Dose Route Start Last Admin Trade Name Freq PRN Reason Stop Dose Admin Acetaminophen 650 mg 09/19/19 01:17 09/20/19 05:05 Tylenol Tab PO 650 mg Q6HR PRN Administration Fever and/ or Pain Amlodipine Besylate 5 mg 09/19/19 15:00 09/19/19 16:53 Norvasc PO 5 mg DAILY@1500 EDILMA Administration Apixaban 5 mg 09/19/19 19:00 09/20/19 07:47 Eliquis PO 5 mg BID@0700,1900 EDILMA Administration Ascorbic Acid 500 mg 09/19/19 09:00 09/20/19 07:46 Vitamin C PO 500 mg DAILY EDILMA Administration Atorvastatin Calcium 10 mg 09/19/19 21:00 09/19/19 20:53 Lipitor PO 10 mg HS EDILMA Administration Carvedilol 6.25 mg 09/19/19 17:30 09/20/19 07:46 Coreg PO 6.25 mg AC-BID EDILMA Administration Cholecalciferol 1,000 unit 09/19/19 09:00 09/20/19 07:47 Vitamin D3 (25 Mcg = 1000 Iu) PO 1,000 unit DAILY EDILMA Administration Enoxaparin Sodium 40 mg 09/19/19 09:00 09/20/19 07:47 Lovenox SQ 40 mg DAILY EDILMA Administration Famotidine 20 mg 09/19/19 09:00 09/20/19 07:46 Pepcid PO 20 mg BID EDILMA Administration Furosemide 40 mg 09/19/19 09:00 09/20/19 07:47 Lasix PO 40 mg DAILY EDILMA Administration Ceftriaxone Sodium 1 gm/ 50 mls @ 100 mls/hr 09/19/19 09:00 09/20/19 07:47 Sodium Chloride IVPB 100 mls/hr Q24HR EDILMA Administration Vancomycin HCl 1,750 mg/ 500 mls @ 167 mls/hr 09/19/19 16:00 09/19/19 16:53 Sodium Chloride IVPB 167 mls/hr Q16H EDILMA Administration Losartan Potassium 100 mg 09/19/19 09:00 09/20/19 07:46 Cozaar PO 100 mg DAILY EDILMA Administration Intake and Output 09/19/19 09/20/19 09/20/19 22:59 06:59 14:59 Other: Voiding Method Bedside Commode # Voids 1 1 # Bowel Movements 1 09/20/19 07:44 09/20/19 07:28
--- NOTE | 2019-09-20 14:19 | P.PN ---
Subjective Progress Note Date: 09/20/19 This is an 84-year-old female patient of Dr. Alex Gomez with past medical history of DVT in the left lower extremity subsequently finding PFO which has been closed by Dr. Pope and DVT of the right arm status post thrombectomy, hypertension, hyperlipidemia, right-sided breast cancer status p ost lumpectomy and radiation therapy without chemotherapy. Patient states that she has had ongoing problems with lower extremity edema and redness this been ongoing for several months but due to Covid concerns, did not seek treatment. She did finally see her doctor 2 weeks ago and was placed on Keflex and completed a 10 day course. She was continuing to have significant pain and weeping from both legs. She denies any fever or chills. On Wednesday she was trying to reach her PCP by phone but her daughter wanted her to come into the hospital for evaluation. Patient came into [facility] emergency center for evaluation. She was afebrile, heart rate 83, blood pressure 99/63, pulse ox 97% on room air. Yazmin BC 10.9, hemoglobin 13, platelet count 406. Sodium 133, potassium 4.2, chloride 98, CO2 25, BUN 62 and creatinine 0.79, blood sugar 116. Magnesium 2.5, liver function tests within normal limits. Troponin negative. ProBNP 992. EKG atrial fibrillation at a rate of 82. No previous history of atrial fibrillation noted. Ultrasound of bilateral lower legs negative for DVT. 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 Patient was started on Rocephin and [facility]comycin [facility] Consults placed with wound care team, Dr. Benoit and cardiology. 09/19: Patient is seen today in follow-up. She has been seen by Dr. Benoit recommending ceftriaxone and vancomycin to be continued. Patient is also been seen by the wound care team with recommendations for honey to the right lower extremity wound and zinc barrier cream to be changed on Wednesday. Recommendations for follow-up in the wound center for debridement. Podiatry consult is pending, Dr. Keys will be in this evening. Patient has been seen by cardiology and does have history of paroxysmal atrial fibrillation. She did have ASD [place] [address] Pope. Patient has been afebrile, heart rate 101, blood pressure 118/64, pulse ox 95% on room air. Repeat blood work revealed WBC 6.9, hemoglobin 11.1, platelet count 297. Blood cultures no growth after 24 hours. Wound culture in progress. Consult with PT will be added to evaluate safety at home. Anticipate probable discharge in the next 24 hours. Review of Systems Constitutional: Reports fatigue, Denies anorexia, Denies chills, Denies fever, Denies lethargy, Denies malaise, Denies poor appetite, Denies weight loss Ears: bilateral: decreased hearing (chronic) Ears, nose, mouth and throat: Denies dysphagia, Denies headache, Denies nasal congestion, Denies nasal discharge, Denies sore throat, Denies vertigo Cardiovascular: Reports leg edema, Denies chest pain, Denies dyspnea on exertion, Denies edema, Denies lightheadedness, Denies orthopnea, Denies palpitations, Denies shortness of breath, Denies syncope Respiratory: Denies cough, Denies cough with sputum, Denies dyspnea, Denies excessive sputum, Denies hemoptysis, Denies home oxygen, Denies respiratory infections, Denies wheezing Gastrointestinal: Denies abdominal pain, Denies diarrhea, Denies loss of appetite, Denies nausea, Denies vomiting Genitourinary: Denies dysuria, Denies hematuria, Denies urgency, Denies urinary frequency Menstruation: Reports postmenopausal Musculoskeletal: Reports muscle weakness, Denies frequent falls, Denies myalgias Integumentary: Reports color changes, Reports darkening of skin, Reports lesions, Reports sores, Reports wounds, Denies pruritus, Denies rash Psychiatric: Denies anxiety, Denies depression Endocrine: Reports fatigue, Denies weight change Physical examination Gen: This is an obese 84-year-old female. She is resting in bed and appears to be comfortable and in no acute distress. HEENT: Head is atraumatic, normocephalic. Pupils equal, round. Sclerae is anicteric. Patient very hard of hearing. NECK: Supple. No JVD. No lymphadenopathy. No thyromegaly. LUNGS: Clear to auscultation. No wheezes or rhonchi. No intercostal retractions. HEART: Regular rate and rhythm. Systolic murmur at the apex. ABDOMEN: Soft. Bowel sounds are present. No masses. No tenderness. EXTREMITIES: 1-2+ pedal edema. Erythema and open areas of weeping to the bilateral lower extremities. NEUROLOGICAL: Patient is awake, alert and oriented x3. Cranial nerves 2 through 12 are grossly intact. Assessment and plan 1. Bilateral lower extremity cellulitis, failed outpatient treatment with oral Keflex. Patient is currently on vancomycin and ceftriaxone. Consults with wound care team and infectious disease appreciated. Bilateral lower extremity ultrasound negative for DVT. Wound culture in process. Blood culture with no growth 2. Hypertension. Continue Norvasc 5 mg daily, losartan 100 mg daily, Coreg 6.25 mg twice daily, Lasix 40 mg daily. 3. History of paroxysmal atrial fibrillation. Consult with cardiology appreciated. Patient is known to be on Coreg and eliquis. 4. History of ASD, surgically closed by Dr. Pope in 2012. 5. History of left lower extremity DVT and left arm DVT status post thrombectomy. Continue eliquis. 6. Hyperlipidemia. Continue atorvastatin 10 mg at bedtime. 7. History of right-sided breast cancer status post lumpectomy and radiation therapy, stable 8. DVT prophylaxis. Eliquis. 9. GERD and GI prophylaxis. Pepcid. 10. COVID-19 infection not present. 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 Consult with podiatry to trim nails. Discharge plan: most likely home, possible home care need. Impression and plan of care have been directed as dictated by the signing physician. Radhika Gu nurse practitioner acting as scribe for signing physician. Objective - Vital Signs Vital signs: Vital Signs Temp 98.7 F 09/20/19 07:00 Pulse 101 H 09/20/19 07:00 Resp 16 09/20/19 07:00 BP 118/64 09/20/19 07:00 Pulse Ox 95 09/20/19 07:00 Intake & Output 09/19/19 09/20/19 09/20/19 18:59 06:59 18:59 Other: Voiding Method Bedside Commode # Voids 2 1 # Bowel Movements 1 - Labs CBC & Chem 7: 09/20/19 07:44 09/20/19 07:28 Labs: Abnormal Lab Results - Last 24 Hours (Table) 09/20/19 09/20/19 Range/Units 07:28 07:44 RBC 3.78 L (3.80-5.40) m/uL Hgb 11.1 L (11.4-16.0) gm/dL Sodium 136 L (137-145) mmol/L BUN 23 H (7-17) mg/dL Total Protein 5.5 L (6.3-8.2) g/dL Albumin 2.7 L (3.5-5.0) g/dL Microbiology - Last 24 Hours (Table) 09/18/19 22:55 Blood Culture - Preliminary Blood No Growth after 24 hours 09/19/19 02:05 Gram Stain - Preliminary Leg - Left Wound Culture - Preliminary 09/19/19 02:00 Gram Stain - Preliminary Leg - Right Wound Culture - Preliminary
[2019-09-20] MEDS: CARVEDILOL 12.5 MG TAB PO SCH (15:53)
[2019-09-20] MEDS: amLODIPine 5 MG TAB PO SCH (15:53)
--- NOTE | 2019-09-20 17:23 | CONS ---
CONSULTATION DATE OF CONSULTATION: 09/20/2019 REASON FOR CONSULTATION: This consultation was performed per the patient's family's physician request and Dr. Montague regarding thick, deformed, elongated dystrophic nails. HISTORY OF PRESENT ILLNESS: This patient is an 84-year-old female. She is a patient of Dr. Alex Gomez. PAST MEDICAL HISTORY: Of DVT in the left lower extremity. Subsequently finding PFO which was closed by Dr. Pope and DVT of the right arm, status post thrombectomy. The patient also suffers from hypertension, hyperlipidemia, right-sided breast cancer, status post lumpectomy and radiation therapy without chemotherapy. The patient states that she has an ongoing problem with lower extremity edema and redness and this has been ongoing for several months. Due to the COVID concerns, she did not seek treatment. She did finally see her family doctor 2 weeks ago and was placed on Keflex and completed a 10-day course. She was continuing to have significant pain and weeping from both legs. She denies any fever or chills. On Wednesday, she was trying to reach her PCP by phone, but her daughter wanted her to come to the hospital for evaluation. The patient came into [facility] for evaluation. She was afebrile. Her heart rate was 83, blood pressure was 99/63, pulse ox was 97% on room air. WBCs were 10.9, hemoglobin was 13, platelet count was 406. Sodium was 133, potassium 4.2, chlorine 98, CO2 is 25, BUN 62, and creatinine 0.79, blood sugar was 116, magnesium was 2.5. Liver function tests were within normal limits. Troponin was negative. EKG atrial fibrillation at a rate of 82 was noted. No previous history of atrial fibrillation noted. Ultrasound of bilateral lower extremities was negative for DVT. Huerta cyst was noted on the right knee. The patient was started on Rocephin and vancomycin. Admitted to the med/surg floor. Consult was placed with the wound care and Dr. Benoit and Cardiology. REVIEW OF SYSTEMS: CONSTITUTIONAL: Reports fatigue. Denies anorexia. Denies chills, fevers. Denies lethargy, malaise. Denies poor appetite. Denies weight loss. EYES: Denies blurred vision. Denies pain. EARS: Bilaterally decreased hearing-chronic. EAR, NOSE, MOUTH, AND THROAT: Denies dysphagia. Denies headache. Denies nasal congestion. Denies sore throat. Denies vertigo. CARDIOVASCULAR: Reports leg edema. Denies chest pain. Denies dyspnea on exertion. Denies edema. Denies lightheadedness. Denies orthopnea. Denies palpitations. Denies shortness of breath. Denies syncope. RESPIRATORY: Denies cough, denies cough with sputum. Denies dyspnea. Denies excessive sputum. Denies home oxygen. Denies respiratory infection. Denies wheezing. GASTROINTESTINAL: Denies abdominal pain, diarrhea. Denies loss of appetite. Denies nausea. Denies vomiting. GENITOURINARY: Denies dysuria. Denies hematuria. Denies urgency. Denies urinary frequency. MENSTRUATION: Reports postmenopausal. MUSCULOSKELETAL: Reports muscle weakness. Denies frequent falls. Denies . Denies wounds. Denies pruritus. Denies rash. PSYCHIATRIC: Denies anxiety, denies depression. ENDOCRINE: Denies fatigue, denies weight change. PAST MEDICAL HISTORY: Significant for deep venous thrombosis, GERD, hyperlipidemia, hypertension. PAST SURGICAL HISTORY: A hernia repair. SMOKING STATUS: Never smoked. PAST ALCOHOL USE HISTORY: None reported. PAST DRUG USE HISTORY: None reported. PHYSICAL EXAMINATION: Revealed bandages in place-compression extending from her knees distally to basically the base of her toes of both feet. The patient's nails were very neglected, thick, deformed, elongated and dystrophic. Changes consistent with onychomycosis were seen to be present 1 through 5 bilaterally and it appears as if the patient's nails of not been trimmed in a couple of years. ASSESSMENT AND PLAN: 1. Bilateral lower extremity cellulitis, failed outpatient treatment with oral Keflex. The patient is currently on vancomycin and Rocephin. 2. Hypertension. 3. Possible new onset of atrial fibrillation. 4. History of PFO, surgically closed by Dr. Pope. 5. History of left lower extremity DVT and left arm DVT, status post thrombectomy. 6. Hyperlipidemia. 7. History of right-sided breast cancer status post lumpectomy with radiation therapy. 8. DVT prophylaxis. 9. GERD and GI prophylaxis. 10.COVID-19 infection testing in process. 11.On this date, I reduced the patient's nails of both feet. Thank you for considering me in the care of your patient. MMODL / IJN: [id number] /
[2019-09-20] MEDS: ATORVASTATIN 10 MG TAB PO SCH (19:59)
--- NOTE | 2019-09-21 03:45 | PN ---
PROGRESS NOTE DATE OF SERVICE: 09/20/2019 REASON FOR FOLLOWUP: Bilateral lower extremity venous stasis ulcer and cellulitis. INTERVAL HISTORY: The patient is currently afebrile. She is breathing comfortably. Overall pain and discomfort to the leg is currently controlled. No chest pain, shortness of breath or cough. No abdominal pain or diarrhea. PHYSICAL EXAMINATION: Blood pressure is 104/69 with a pulse of 81, temperature 98.3. She is 97% on room air. General description is an elderly female lying in bed in no distress. RESPIRATORY SYSTEM: Unlabored breathing, clear to auscultation anteriorly. HEART: S1, S2. Regular rate and rhythm. ABDOMEN: Soft, no tenderness. Legs are currently wrapped up. No obvious drainage on the dressing. LABS: Hemoglobin 11.1, white count 6.9, creatinine 0.67. Blood culture so far negative. Wound culture is pending. DIAGNOSTIC IMPRESSION AND PLAN: Patient with bilateral lower extremity venous stasis ulcer with secondary cellulitis, right greater than the left. The patient is currently covered with vancomycin and Rocephin to continue. Local wound care as per wound care team. Waiting for the culture to finalize to determine her discharge antibiotics. Continue with supportive care. MMODL / IJN: [id number] /
[2019-09-21] MEDS: ACETAMINOPHEN TAB 325 MG TAB PO PRN ×2 (05:46→11:31)
[2019-09-21] MEDS: LOSARTAN 50 MG TAB PO SCH (07:18)
[2019-09-21] MEDS: FUROSEMIDE 40 MG TAB PO SCH (07:19)
[2019-09-21] MEDS: ENOXAPARIN 40 MG/0.4 ML SYRINGE SQ SCH (07:19)
[2019-09-21] MEDS: CHOLECALCIFEROL 1,000 UNIT TAB PO SCH (07:19)
[2019-09-21] MEDS: APIXABAN 5 MG TAB PO SCH (07:19)
[2019-09-21] MEDS: CARVEDILOL 12.5 MG TAB PO SCH (07:19)
[2019-09-21] MEDS: ASCORBIC ACID 500 MG TAB PO SCH (07:19)
[2019-09-21] MEDS: FAMOTIDINE 20 MG TAB PO SCH (07:19)
[2019-09-21 07:24] VITALS: BP 109/70; PULSE 87; RESP 16; TEMP 98.3
[2019-09-21 08:02] LABS: African American GFR (CKD) >90 (>60 ml/min/1.73 sqM); Non-African American GFR(CKD) 86 (>60 ml/min/1.73 sqM)
[2019-09-21] MEDS ORDERED: LOSARTAN 50 MG TAB PO SCH (09:00)
--- NOTE | 2019-09-21 09:10 | P.DS ---
Providers Date of admission: 09/20/19 07:41 Expected date of discharge: 09/21/19 Attending physician: Darrius Montague Consults: 09/19/19 08:22 Consult Physician Routine Consulting Provider: Alex Keys Consult Reason/Comments: trim nails Do you want consulting provider notified?: Yes 09/19/19 11:38 Consult Physician Routine Consulting Provider: Alexander Benoit Consult Reason/Comments: cellulitis Do you want consulting provider notified?: Yes 09/19/19 11:43 Consult Physician Routine Consulting Provider: Lavon Merino Consult Reason/Comments: new afib Do you want consulting provider notified?: Yes Primary care physician: Alex Gomez [facility] Course: This is an 84-year-old female patient of Dr. Alex Gomez with past medical history of DVT in the left lower extremity subsequently finding PFO which has been closed by Dr. Pope and DVT of the right arm status post thrombectomy, hypertension, hyperlipidemia, right-sided breast cancer status post lumpectomy and radiation therapy without chemotherapy. Patient states that she has had ongoing problems with lower extremity edema and redness this been ongoing for several months but due to Covid concerns, did not seek treatment. She did finally see her doctor 2 weeks ago and was placed on Keflex and completed a 10 day course. She was continuing to have significant pain and weeping from both legs. She denies any fever or chills. On Wednesday she was trying to reach her PCP by phone but her daughter wanted her to come into the hospital for evaluation. Patient came into [facility] emergency center for evaluation. She was afebrile, heart rate 83, blood pressure 99/63, pulse ox 97% on room air. Yazmin BC 10.9, hemoglobin 13, platelet count 406. Sodium 133, potassium 4.2, chloride 98, CO2 25, BUN 62 and creatinine 0.79, blood sugar 116. Magnesium 2.5, liver function tests within normal limits. Troponin negative. ProBNP 992. EKG atrial fibrillation at a rate of 82. No previous history of atrial fibrillation noted. Ultrasound of bilateral lower legs negative for DVT. 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 Patient was started on Rocephin and vancomycin and admitted to the [facility] floor. Consults placed with wound care team, Dr. Benoit and cardiology. 09/19: Patient is seen today in follow-up. She has been seen by Dr. Benoit recommending ceftriaxone and vancomycin to be continued. Patient is also been seen by the wound care team with recommendations for honey to the right lower extremity wound and zinc barrier cream to be changed on Wednesday. Recommendations for follow-up in the wound center for debridement. Podiatry consult is pending, Dr. Keys will be in this evening. Patient has been seen by cardiology and does have history of paroxysmal atrial fibrillation. She did have ASD [place] [address] Pope. Patient has been afebrile, heart rate 101, blood pressure 118/64, pulse ox 95% on room air. Repeat blood work revealed WBC 6.9, hemoglobin 11.1, platelet count 297. Blood cultures no growth after 24 hours. Wound culture in progress. Consult with PT will be added to evaluate safety at home. Anticipate probable discharge in the next 24 hours. 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 Patient denies any new complaints today. She is agreeable to go to [facility] for subacute rehab. She has been afebrile, heart rate 87, blood pressure 109/70, pulse ox 96% on room air. Wound culture is showing normal skin francisco. Dr. Benoit is recommended Keflex for 10 day course. Patient has been afebrile, heart rate 87, blood pressure 100/70 pulse ox 96% on room air. Medication changes have been made by cardiology which will be addressed on the medication reconciliation. Patient will be discharged to [facility] once arrangements are completed. Review of Systems Constitutional: Reports fatigue, Denies anorexia, Denies chills, Denies fever, Denies lethargy, Denies malaise, Denies poor appetite, Denies weight loss Ears: bilateral: decreased hearing (chronic) Ears, nose, mouth and throat: Denies dysphagia, Denies headache, Denies nasal congestion, Denies nasal discharge, Denies sore throat, Denies vertigo Cardiovascular: Reports leg edema, Denies chest pain, Denies dyspnea on exertion, Denies edema, Denies lightheadedness, Denies orthopnea, Denies palpitations, Denies shortness of breath, Denies syncope Respiratory: Denies cough, Denies cough with sputum, Denies dyspnea, Denies excessive sputum, Denies hemoptysis, Denies home oxygen, Denies respiratory infections, Denies wheezing Gastrointestinal: Denies abdominal pain, Denies diarrhea, Denies loss of appetite, Denies nausea, Denies vomiting Genitourinary: Denies dysuria, Denies hematuria, Denies urgency, Denies urinary frequency Menstruation: Reports postmenopausal Musculoskeletal: Reports muscle weakness, Denies frequent falls, Denies myalgias Integumentary: Reports color changes, Reports darkening of skin, Reports lesions, Reports sores, Reports wounds-improving, Denies pruritus, Denies rash Psychiatric: Denies anxiety, Denies depression Endocrine: Reports fatigue, Denies weight change Physical examination Gen: This is an obese 84-year-old female. She is resting in bed and appears to be comfortable and in no acute distress. HEENT: Head is atraumatic, normocephalic. Pupils equal, round. Sclerae is anicteric. Patient very hard of hearing. NECK: Supple. No JVD. No lymphadenopathy. No thyromegaly. LUNGS: Clear to auscultation. No wheezes or rhonchi. No intercostal retractions. HEART: Regular rate and rhythm. Systolic murmur at the apex. ABDOMEN: Soft. Bowel sounds are present. No masses. No tenderness. EXTREMITIES: 1-2+ pedal edema. Erythema and open areas of weeping to the bilateral lower extremities improving. NEUROLOGICAL: Patient is awake, alert and oriented x3. Cranial nerves 2 through 12 are grossly intact. Assessment and plan 1. Bilateral lower extremity cellulitis, failed outpatient treatment with oral Keflex. Bilateral lower extremity ultrasound negative for DVT. 2. Hypertension. 3. History of paroxysmal atrial fibrillation. 4. History of ASD, surgically closed by Dr. Pope in 2013. 5. History of left lower extremity DVT and left arm DVT status post thrombectomy. 6. Hyperlipidemia. 7. History of right-sided breast cancer status post lumpectomy and radiation therapy, stable 8. GERD 9. COVID-19 infection not present. 10. 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 Discharge plan: [facility]. Impression and plan of care have been directed as dictated by the signing physician. Radhika Gu nurse practitioner acting as scribe for signing physician. Patient Condition at Discharge: Good Plan - Discharge Summary Discharge Rx Participant: No New Discharge Prescriptions: New Cephalexin [Keflex] 500 mg PO Q8HR 10 Days #30 cap Carvedilol [Coreg*] 12.5 mg PO BID-W/MEALS tab Losartan [Cozaar] 50 mg PO DAILY tab Acetaminophen Tab [Tylenol] 650 mg PO Q6HR PRN tab PRN Reason: Fever And/ Or Pain Continue Apixaban [Eliquis] 5 mg PO BID@0700,1900 Ascorbic Acid [Vitamin C] 500 mg PO DAILY Atorvastatin [Lipitor] 10 mg PO HS Cholecalciferol [Vitamin D3 (25 Mcg = 1000 Iu)] 1,000 unit PO DAILY Famotidine [Pepcid] 20 mg PO BID Furosemide [Lasix] 40 mg PO DAILY Turmeric Root Extract [Turmeric] 500 mg PO DAILY Vitamin E 400 unit PO HS Discontinued amLODIPine [Norvasc] 5 mg PO DAILY@1500 Carvedilol [Coreg] 6.25 mg PO BID Losartan Potassium [Cozaar] 100 mg PO DAILY Discharge Medication List Apixaban [Eliquis] 5 mg PO BID@0700,1900 09/18/19 [History] Ascorbic Acid [Vitamin C] 500 mg PO DAILY 09/18/19 [History] Atorvastatin [Lipitor] 10 mg PO HS 09/18/19 [History] Cholecalciferol [Vitamin D3 (25 Mcg = 1000 Iu)] 1,000 unit PO DAILY 09/18/19 [History] Famotidine [Pepcid] 20 mg PO BID 09/18/19 [History] Furosemide [Lasix] 40 mg PO DAILY 09/18/19 [History] Turmeric Root Extract [Turmeric] 500 mg PO DAILY 09/18/19 [History] Vitamin E 400 unit PO HS 09/18/19 [History] Acetaminophen Tab [Tylenol] 650 mg PO Q6HR PRN tab 09/21/19 [Rx] Carvedilol [Coreg*] 12.5 mg PO BID-W/MEALS tab 09/21/19 [Rx] Cephalexin [Keflex] 500 mg PO Q8HR 10 Days #30 cap 09/21/19 [Rx] Losartan [Cozaar] 50 mg PO DAILY tab 09/21/19 [Rx] Follow up Appointment(s)/Referral(s): [facility] [NON-STAFF] - 1 Week Alex Gomez MD [Primary Care Provider] - 1 Week (After discharge from ECF) Discharge Disposition: TRANSFER TO SNF/ECF
--- NOTE | 2019-09-21 09:35 | P.PN ---
Subjective HISTORY OF PRESENTING ILLNESS This is a pleasant 84-year-old female past medical history significant for atrial fibrillation, mitral regurgitation, aortic regurgitation, ASD status post percutaneous repair 2012, hypertension and dyslipidemia. She follows in the office with Dr. Pope. She is seen and examined sitting up in bed in eating breakfast. She has no symptoms of chest pain, shortness of breath, dizziness or palpitations. She states this morning she had a brief headache but that subsided. Blood pressure this morning was 109/70 with a heart rate of 87 afebrile maintaining oxygen saturation on room air. She did have episodes of hypotension yesterday after coring was increased. Amlodipine dose in the afternoon was held. Laboratory data reviewed, creatinine 0.57. PHYSICAL EXAMINATION CONSTITUTIONAL: No apparent distress. HEENT: Head is normocephalic. Pupils are equal, round. Sclerae anicteric. Mucous membranes of the mouth are moist. No JVD. No carotid bruit. CHEST EXAMINATION: Lungs are clear to auscultation. No chest wall tenderness is noted on palpation or with deep breathing. HEART EXAMINATION: Irregular rate and rhythm. S1, S2 heard. Systolic ejection murmur at the left sternal border and base, no gallops or rub. EXTREMITIES: 2+ peripheral pulses, bilateral Skip wraps in place and no calf tenderness. 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 Continue with Coreg 12.5 mg twice a day. Follow-up in the office with Dr. Pope upon discharge. Nurse Practitioner note has been reviewed, I agree with a documented findings and plan of care. Patient was seen and examined. Objective - Vital Signs Vital signs: Vital Signs Temp 98.3 F 09/21/19 07:00 Pulse 87 09/21/19 07:00 Resp 16 09/21/19 07:00 BP 109/70 09/21/19 07:00 Pulse Ox 96 09/21/19 07:00 Intake & Output 09/20/19 09/21/19 09/21/19 18:59 06:59 18:59 Intake Total 550 120 Balance 550 120 Intake: Intake, IV Titration 550 Amount Vancomycin 1,750 mg In 500 Sodium Chloride 0.9% 500 ml 500 ml @ 167 mls/hr IVPB Q16H [facility] Rx#: [id number] cefTRIAXone 1 gm In 50 Sodium Chloride 0.9% 50 ml @ 100 mls/hr IVPB Q24HR [facility] Rx#:[id number] Oral 120 Other: Voiding Method Bedside Commode Bedside Commode # Voids 1 1 # Bowel Movements 1 - Labs CBC & Chem 7: 09/20/19 07:44 09/21/19 06:43 Labs: Abnormal Lab Results - Last 24 Hours (Table) 09/20/19 09/20/19 Range/Units 07:28 07:44 RBC 3.78 L (3.80-5.40) m/uL Hgb 11.1 L (11.4-16.0) gm/dL Sodium 136 L (137-145) mmol/L BUN 23 H (7-17) mg/dL Total Protein 5.5 L (6.3-8.2) g/dL Albumin 2.7 L (3.5-5.0) g/dL Microbiology - Last 24 Hours (Table) 09/19/19 02:05 Gram Stain - Final Leg - Left Wound Culture - Final 09/19/19 02:00 Gram Stain - Final Leg - Right Wound Culture - Final 09/18/19 22:55 Blood Culture - Preliminary Blood No Growth after 48 hours
--- NOTE | 2019-09-21 11:53 | PN ---
PROGRESS NOTE DATE OF SERVICE: 09/21/2019 REASON FOR FOLLOWUP: Bilateral lower extremity venostasis ulcer and cellulitis. INTERVAL HISTORY: The patient is currently afebrile. The patient is feeling better. Breathing comfortably. Denies having any chest pain, shortness of breath or cough. No abdominal pain. Overall discomfort has improved. PHYSICAL EXAMINATION: Blood pressure 109/70 with a pulse of 87, temperature 98.3, she is 96% on room air. General description is an elderly female, lying in bed in no distress respiratory system: Unlabored breathing clear to auscultation anteriorly heart S1, S2. Regular rate and rhythm abdomen are abdominal drainage on the dressing. LABS: White count 6.9, creatinine 0.57. Culture has been mostly skin francisco. DIAGNOSTIC IMPRESSION AND PLAN: Patient has bilateral lower extremity venostasis ulcer with secondary cellulitis. This patient has shown overall clinical improvement. Antibiotic was switched to oral Keflex as no MRSA has been grown. Local wound care to continue with the wound care team and follow up with the Wound Care Center. Continue supportive care. MMODL / IJN: [id number] /
[2019-09-22] MEDS ORDERED: VANCOMYCIN TROUGH DUE 1 EACH MISC MISCELLANE ONE (07:00)
== END 2019-09-21 15:40 | DRG 603 ==
LOC: EC 19:37 → 4SSUR 22:05 → INTOOBSV 22:05 → OBSVTOIN 09-20 07:41
PROVIDERS: ADMIT Internal Medicine Geriatric Medicine; ATTEND Internal Medicine Geriatric Medicine
DX: L03.115 Cellulitis of right lower limb (principal); L97.912 Non-pressure chronic ulcer of unspecified part of right lower leg with fat layer exposed; L97.921 Non-pressure chronic ulcer of unspecified part of left lower leg limited to breakdown of skin; L03.116 Cellulitis of left lower limb; E78.5 Hyperlipidemia, unspecified; I08.0 Rheumatic disorders of both mitral and aortic valves; I10 Essential (primary) hypertension; I48.0 Paroxysmal atrial fibrillation; K21.9 Gastro-esophageal reflux disease without esophagitis; M71.20 Synovial cyst of popliteal space [Baker], unspecified knee; I87.2 Venous insufficiency (chronic) (peripheral); L60.2 Onychogryphosis; E66.9 Obesity, unspecified; Z11.59 Encounter for screening for other viral diseases; Z68.36 Body mass index [BMI] 36.0-36.9, adult; Z79.01 Long term (current) use of anticoagulants; Z79.899 Other long term (current) drug therapy; Z92.3 Personal history of irradiation; Z85.3 Personal history of malignant neoplasm of breast; Z90.710 Acquired absence of both cervix and uterus; Z87.74 Personal history of (corrected) congenital malformations of heart and circulatory system; Z86.718 Personal history of other venous thrombosis and embolism; Z82.3 Family history of stroke; Z80.3 Family history of malignant neoplasm of breast
CPT/HCPCS: 36415; 80053; 81001; 82565; 83605; 83735; 83880; 84100; 84484; 85025; 85610; 85730; 87040; 87070; 87205; 93005; 93970; 96360; 99284

== ENCOUNTER 2021-02-10 08:23 | Inpatient (IN) | payer MEDICARE, OTHER ==
[~2021-02-10 08:23] MED LIST: ACETAMINOPHEN TAB 500 MG TAB PO PRN; HEPARIN SODIUM,PORCINE/PF 5,000 UNIT/0.5 ML SYRINGE SQ PRN; LIDOCAINE 1% (10MG/ML) FOR IV START INTRADERMA PRN
[2021-02-10] MEDS ORDERED: ONDANSETRON 4 MG/2 ML VIAL ONE (08:38)
[2021-02-10] MEDS: LACTATED RINGERS 1,000 ML IV SCH ×2 (09:06→15:30)
[2021-02-10] MEDS ORDERED: DEXAMETHASONE SOD PHOSPHATE 4 MG/ML 1 ML VIAL IV ONE (09:06)
--- NOTE | 2021-02-10 10:18 | P.GSHP ---
History of Present Illness H&P Date: 02/10/21 Chief Complaint: Right upper quadrant pain This 85-year-old female who has a history of cholelithiasis. Patient had a recent hospital should wear she had choledocholithiasis. Patient appears to pass her gallstones. Patient presents today for laparoscopic cholecystectomy. The patient is aware the risk of possible need for postoperative ERCP. Past Medical History Past Medical History: Atrial Fibrillation, Cancer, Deep Vein Thrombosis (DVT), GERD/Reflux, Hearing Disorder / Deafness, Hyperlipidemia, Hypertension Additional Past Medical History / Comment(s): Hx multiple abdominal hernias, current umb hernia. Hx skin cancer. Hearing aids broken. Edema BLE, varicose veins (hx cellulitis). Gallbladder full of stones currently. History of Any Multi-Drug Resistant Organisms: None Reported Past Surgical History: Section, Hernia Repair Additional Past Surgical History / Comment(s): Cancer exc from skin of breast; "blood clot removal" from leg. "Poss hysterectomy," per son. ASD repair 2012. Past Anesthesia/Blood Transfusion Reactions: No Reported Reaction Smoking Status: Former smoker - Past Family History Mother Family Medical History: CVA/TIA Additional Family Medical History / Comment(s): Pt. states mother at 52 from a stroke Father Additional Family Medical History / Comment(s): Father at age 57 from a motor vehicle accident. Sister(s) Family Medical History: Cancer Additional Family Medical History / Comment(s): The patient has 2 sisters, 1 sister has from breast cancer and one is alive with no major medical problems. Patient does not have any brothers. Patient has 4 children with no major medical problems. Son(s) Family Medical History: Deep Vein Thrombosis (DVT) Medications and Allergies Home Medications Medication Instructions Recorded Confirmed Type Apixaban [Eliquis] 5 mg PO BID@0700,1900 09/18/19 02/07/21 History Ascorbic Acid [Vitamin C] 500 mg PO DAILY 09/18/19 02/10/21 History Atorvastatin [Lipitor] 10 mg PO HS 09/18/19 02/10/21 History Cholecalciferol [Vitamin D3 (25 25 mcg PO DAILY 09/18/19 02/10/21 History Mcg = 1000 Iu)] Famotidine [Pepcid] 20 mg PO BID 09/18/19 02/10/21 History Furosemide [Lasix] 40 mg PO DAILY 09/18/19 02/10/21 History Vitamin E 1,000 unit PO DAILY 09/18/19 02/07/21 History Acetaminophen Tab [Tylenol] 650 mg PO Q6HR PRN tab 09/21/19 02/10/21 Rx Losartan [Cozaar] 50 mg PO DAILY tab 09/21/19 02/10/21 Rx carvediloL [Coreg*] 12.5 mg PO BID-W/MEALS tab 09/21/19 02/10/21 Rx Amoxicillin/Potassium Clav 1 tab PO BID 02/07/21 02/10/21 History [Augmentin 875-125 Tablet] Docusate Sodium [Dok] 250 mg PO DAILY PRN 02/07/21 02/07/21 History Enoxaparin [Lovenox] 100 mg SQ Q12H 02/07/21 02/10/21 History Multivitamins, Thera [Multivitamin 1 tab PO DAILY 02/07/21 02/07/21 History (formulary)] Allergies Allergy/AdvReac Type Severity Reaction Status Date / Time hydrocodone [From Vicodin] AdvReac Intermediate Unknown Verified 02/10/21 08:57 Surgical - Exam Vital Signs Temp Pulse Resp BP Pulse Ox 97.7 F 61 16 156/73 99 02/10/21 08:54 02/10/21 08:54 02/10/21 08:54 02/10/21 08:54 02/10/21 08:54 - General well developed, well nourished, no distress - Eyes PERRL - ENT normal pinna - Neck no masses - Respiratory normal expansion - Cardiovascular Rhythm: regular - Abdomen Abdomen: soft, non tender Assessment and Plan Assessment: Gallstones. History of choledocholithiasis Chronically cystitis Patient will undergo laparoscopic cholecystectomy. The patient is aware the risk of possible postoperative ERCP if she has any symptoms of choledocholithiasis.
[2021-02-10] MEDS ORDERED: ROCURONIUM 10 MG/ML (5 ML VIAL) IV ONE (10:25)
[2021-02-10] MEDS ORDERED: MIDAZOLAM 2 MG/2 ML VIAL ONE (10:25)
[2021-02-10] MEDS ORDERED: fentaNYL (PF) 50 MCG/ML 2 ML AMP ONE (10:25)
[2021-02-10] MEDS ORDERED: LIDOCAINE 1% INJ 10MG/ML (20 ML MDV) ONE (10:25)
[2021-02-10] MEDS ORDERED: GLYCOPYRROLATE 0.2 MG/ML 2 ML VIAL ONE (10:25)
[2021-02-10] MEDS ORDERED: ePHEDrine 50 MG/ML 1 ML AMP ONE (10:25)
[2021-02-10] MEDS ORDERED: NEOSTIGMINE 1 MG/ML 10 ML VIAL ONE (10:25)
[2021-02-10] MEDS ORDERED: SUCCINYLCHOLINE CHLORIDE 100 MG/5 ML SYR IV ONE ×2 (10:25)
[2021-02-10] MEDS ORDERED: BUPIVACAINE (PF) 0.25% 30 ML VIAL SQ ONE (10:28)
[2021-02-10] MEDS ORDERED: LACTATED RINGERS 1,000 ML IV ONE (11:54)
[2021-02-10] MEDS: HYDROmorphone 0.5 MG/0.5 ML SYRINGE IVP PRN ×4 (12:25→14:34)
[2021-02-10] MEDS: fentaNYL (PF) 50 MCG/ML 2 ML AMP IVP ONE ×4 (13:04→14:19)
[2021-02-10] MEDS ORDERED: HYDROmorphone 1 MG/ML 1 ML SYRINGE IVP PRN (13:25)
[2021-02-10] MEDS ORDERED: HYDROcodone/APAP 5-325MG 1 EACH TAB PO PRN (13:25)
[2021-02-10] MEDS ORDERED: NALOXONE 0.4 MG/ML 1 ML VIAL IV PRN (13:25)
--- NOTE | 2021-02-10 13:29 | P.OP ---
Date of Procedure: 02/10/21 Preoperative Diagnosis: Cholelithiasis Postoperative Diagnosis: Cholelithiasis Massive incisional hernia Procedure(s) Performed: Diagnostic laparoscopy Open cholecystectomy Anesthesia: RICKIE Surgeon: Madhav Poe Estimated Blood Loss (ml): 25 Pathology: other (Gallbladder) Condition: stable Disposition: PACU Description of Procedure: The patient's placed in the operative table in supine position. She received general endotracheal tube anesthesia. Her abdomen was prepped and draped in sterile fashion. Patient had a incisional hernia located near the umbilicus. Due to this using a 5 mm optical trocar under direct visualization. Because entered in the left upper quadrant. The pleural cavity was then insufflated. After insufflation the hernia was quite large and it was impossible to do a laparoscopically cholecystectomy due to the size the hernia. At this point the trochars withdrawn. A standard right subcostal incision was made. The left cautery the abdominal wall was divided. The [place] tract with wound. The gallbladder was visualized and brought up into the wound. The gallbladder was then taken in the dome down fashion. The cystic artery was clipped and divided. The cystic duct was ligated 0 silk ties and ligated with the Endoloop after systemic was transected. Specimens to pathology. There was areas of bleeding seen. The wound was closed with PDS suture. Skin was closed leena. Patient top she will was sent to recovery room in stable condition.
[2021-02-10] MEDS ORDERED: hydrALAZINE HCL 20 MG/ML 1 ML VIAL ONE (13:44)
[2021-02-10] MEDS ORDERED: hydrALAZINE HCL 20 MG/ML 1 ML VIAL IVP ONE (13:47)
[2021-02-10] MEDS: D5-0.45% NACL WITH KCL 20MEQ/L 1,000 ML IV SCH (15:34)
[2021-02-10] MEDS: KETOROLAC 15 MG/ML 1 ML VIAL IVP SCH (17:53)
--- NOTE | 2021-02-10 23:06 | CONS ---
CONSULTATION This 85-year-old white female is admitted with right upper quadrant abdominal pain, history of cholelithiasis, recent hospital stay for choledocholithiasis and diastolic heart failure, cellulitis of the legs. She came in with laparoscopic cholecystectomy for medical management consult. The patient underwent open cholecystectomy today. She is in a lot of pain. PAST MEDICAL HISTORY: Atrial fibrillation, DVT, GERD, hearing disorder, deafness, dyslipidemia, hypertension, hearing aids are broken, multiple abdominal hernias, varicose veins. FAMILY HISTORY: Mother with CVA and TIA. Father motor vehicle accident. Sister cancer. HOME MEDICINES: 1. Eliquis 5 mg b.i.d. 2. Lipitor 10 mg daily. 3. Pepcid 20 b.i.d. 4. Lasix 40 daily. 5. Cozaar 50 mg daily. 6. Coreg 12.5 mg b.i.d. 7. Colace 100 mg b.i.d. She has been on Lovenox and off Eliquis preoperatively at this time. We are going to restart her Eliquis and get her off the Lovenox. Temperature 97.7, pulse 61, O2 99, blood pressure 150s over 70s, pulse 60s, respiratory rate 16 to 18. CARDIOVASCULAR: S1, S2. PSYCH: Flat mood and affect. RESPIRATORY: Clear. HEMATOLOGIC: She has SVEN hose on, compression stockings. ASSESSMENT: 1. Status post cholelithiasis, open cholecystectomy. 2. Congestive heart failure. 3. Cellulitis of the legs. 4. Chronic cystitis. Prognosis guarded. Restart home medicines postoperatively. Pain control. Monitor breathing. Prognosis is guarded but stable. MMODL / IJN: [id number] /
[2021-02-11] MEDS: DOCUSATE 100 MG CAP PO SCH ×3 (00:32→21:06)
[2021-02-11] MEDS: D5-0.45% NACL WITH KCL 20MEQ/L 1,000 ML IV SCH ×3 (00:32→21:06)
[2021-02-11] MEDS: KETOROLAC 15 MG/ML 1 ML VIAL IVP SCH ×5 (00:33→23:12)
[2021-02-11 04:35] LABS: Basophils % (A) 0 %; Eosinophils % (A) 0 %; HCT 37.9 % (34.0-46.0); HGB 12.4 gm/dL (11.4-16.0); Lymphocytes # (A) 0.9 k/uL (1.0-4.8); Lymphocytes % (A) 5 %; MCH 31.5 pg (25.0-35.0); MCHC 32.6 g/dL (31.0-37.0); MCV 96.6 fL (80.0-100.0); Monocytes # (A) 0.6 k/uL (0-1.0); Monocytes % (A) 3 %; Neutrophils % (A) 91 %; Platelet Count 329 k/uL (150-450); RBC 3.93 m/uL (3.80-5.40); RDW 13.4 % (11.5-15.5); WBC 19.7 k/uL (3.8-10.6)
[2021-02-11] MEDS ORDERED: ENOXAPARIN 30 MG/0.3 ML SYRINGE SQ SCH (09:00)
[2021-02-11] MEDS: FAMOTIDINE 20 MG TAB PO SCH ×2 (09:38→21:06)
[2021-02-11] MEDS: FUROSEMIDE 40 MG TAB PO SCH (09:38)
[2021-02-11] MEDS: carvediloL 12.5 MG TAB PO SCH ×2 (09:38→18:01)
[2021-02-11] MEDS: LOSARTAN 50 MG TAB PO SCH (09:39)
[2021-02-11] MEDS: MULTIVITAMINS, THERA 1 EACH TAB PO SCH (09:39)
[2021-02-11 10:13] LABS: Albumin 3.2 g/dL (3.8-4.9); Albumin/Globulin Ratio 1.39 (1.60-3.17); Anion Gap 13.6 mmol/L (4.00-12.00); Blood Urea Nitrogen 12.6 mg/dL (9.0-27.0); Calcium 8.7 mg/dL (8.7-10.3); Carbon Dioxide 23.4 mmol/L (21.6-31.8); Globulin 2.3 g/dL (1.6-3.3); Non-African American GFR(CKD) 83.7 (60.0-200.0); Potassium 3.8 mmol/L (3.5-5.5); Total Bilirubin 0.6 mg/dL (0.30-1.20); Total Protein 5.5 g/dL (6.2-8.2)
[2021-02-11] MEDS: APIXABAN 5 MG TAB PO SCH ×2 (10:48→19:19)
[2021-02-11] MEDS: ONDANSETRON 4 MG/2 ML VIAL IVP PRN ×2 (14:28→21:14)
[2021-02-11] MEDS: PIPERACILLIN-TAZOBACTAM 3.375 GM in SODIUM CHLORIDE 0.9% 100 ML IVPB SCH ×2 (14:28→21:06)
--- NOTE | 2021-02-11 15:03 | P.PN ---
Subjective Progress Note Date: 02/11/21 CHIEF COMPLAINT: Cholelithiasis HISTORY OF PRESENT ILLNESS: Patient is status post diagnostic laparoscopy and open cholecystectomy for cholelithiasis and massive incisional hernia. Afebrile. WBC 19.7 hemoglobin 12.4 platelets 329 creatinine 0.6 LFTs normal PHYSICAL EXAM: VITAL SIGNS: Reviewed. GENERAL: Well-developed in no acute distress. HEENT: No sclera icterus. Extraocular movements grossly intact. Moist buccal mucosa. Head is atraumatic, normocephalic. ABDOMEN: Soft. Nondistended. Incisional dressing clean dry and intact NEUROLOGIC: Alert and oriented. Cranial nerves II through XII grossly intact. ASSESSMENT: 1. Right upper quadrant abdominal pain with cholelithiasis and evidence of a massive incisional hernia status post diagnostic laparoscopy and open cholecystectomy. Postop day #1 2. Leukocytosis 3. Urinary retention PLAN: -Add IV Zosyn due to patient's leukocytosis -Continue clear liquid diet -Patient did have urinary retention Muir catheter was inserted -Consult PT OT -Continue pain medication as needed -DVT prophylaxis Eliquis and GI prophylaxis Pepcid Physician Locum Tenens note has been reviewed by physician. Signing provider agrees with the documented findings, assessment, and plan of care. Objective - Vital Signs Vital signs: Vital Signs Temp 97.7 F 02/11/21 12:32 Pulse 90 02/11/21 12:32 Resp 17 02/11/21 12:32 BP 130/62 02/11/21 12:32 Pulse Ox 95 02/11/21 12:32 Intake & Output 02/10/21 02/11/21 02/11/21 18:59 06:59 18:59 Intake Total 1800 1200 240 Output Total 25 125 725 Balance 1775 1075 -485 Weight 100.5 kg Intake: IV 1800 Intake, IV Titration 1200 Amount D5-0.45% NaCl with KCl 1200 20Meq/l 1,000 ml @ 100 mls/hr IV .Q10H [facility] Rx#: [id number] Oral 240 Output: Urine 125 725 Straight 650 Uretheral (Muir) 75 Estimated Blood Loss 25 Other: Voiding Method External Catheter Bedpan Diaper # Voids 1 - Labs CBC & Chem 7: 02/11/21 03:40 02/11/21 03:40 Labs: Abnormal Lab Results - Last 24 Hours (Table) 02/11/21 02/11/21 Range/Units 03:40 03:40 WBC 19.7 H (3.8-10.6) k/uL Neutrophils # 18.0 H (1.3-7.7) k/uL Lymphocytes # 0.9 L (1.0-4.8) k/uL Anion Gap 13.60 H (4.00-12.00) mmol/L BUN/Creatinine Ratio 21.00 H (12.00-20.00) Ratio Glucose 140 H (70-110) mg/dL Total Protein 5.5 L (6.2-8.2) g/dL Albumin 3.2 L (3.8-4.9) g/dL Albumin/Globulin Ratio 1.39 L (1.60-3.17) g/dL
[2021-02-11] MEDS: ATORVASTATIN 10 MG TAB PO SCH (21:06)
[2021-02-11] MEDS: METOCLOPRAMIDE 5 MG/ML 2 ML VIAL IVP PRN (23:13)
[2021-02-12] MEDS: ONDANSETRON 4 MG/2 ML VIAL IVP PRN ×2 (02:51→12:09)
[2021-02-12] MEDS: KETOROLAC 15 MG/ML 1 ML VIAL IVP SCH ×2 (05:21→12:09)
[2021-02-12] MEDS: PIPERACILLIN-TAZOBACTAM 3.375 GM in SODIUM CHLORIDE 0.9% 100 ML IVPB SCH ×3 (05:22→21:00)
[2021-02-12] MEDS: D5-0.45% NACL WITH KCL 20MEQ/L 1,000 ML IV SCH ×3 (05:22→19:29)
--- NOTE | 2021-02-12 06:12 | PN ---
PROGRESS NOTE 85-year-old white female status post open cholecystectomy. Continues on IV Zosyn. Cardiovascular S1, S2. Lungs clear. GI soft. Temp 98.1, pulse 60 to 70s, respiratory 16 to 18. Blood pressure 111 to 127 over 70s. O2 92-93 percent on room air. ASSESSMENT: 1. Status post open cholecystectomy. 2. Chronic obstructive pulmonary disease. 3. Congestive heart failure. 4. Dyslipidemia. 5. History of atrial fibrillation. 6. Gastroesophageal reflux disease. Continue current treatments. Prognosis guarded. Follow up in next 24 to 48 hours. MMODL / IJN: [id number] /
[2021-02-12 07:23] LABS: Basophils % (A) 0 %; Eosinophils % (A) 0 %; HCT 38.9 % (34.0-46.0); HGB 13.1 gm/dL (11.4-16.0); Lymphocytes # (A) 1.1 k/uL (1.0-4.8); Lymphocytes % (A) 6 %; MCH 31.4 pg (25.0-35.0); MCHC 33.7 g/dL (31.0-37.0); MCV 93.2 fL (80.0-100.0); Mean Platelet Volume 8.6; Monocytes # (A) 0.5 k/uL (0-1.0); Monocytes % (A) 3 %; Neutrophils # (A) 16.1 k/uL (1.3-7.7); Neutrophils % (A) 91 %; Platelet Count 352 k/uL (150-450); RBC 4.17 m/uL (3.80-5.40); RDW 13.7 % (11.5-15.5); WBC 17.8 k/uL (3.8-10.6)
[2021-02-12] MEDS: APIXABAN 5 MG TAB PO SCH ×2 (07:30→19:27)
[2021-02-12] MEDS: LOSARTAN 50 MG TAB PO SCH (07:31)
[2021-02-12] MEDS: MULTIVITAMINS, THERA 1 EACH TAB PO SCH (07:31)
[2021-02-12] MEDS: carvediloL 12.5 MG TAB PO SCH ×2 (07:32→17:39)
[2021-02-12] MEDS: FUROSEMIDE 40 MG TAB PO SCH (07:32)
[2021-02-12] MEDS: FAMOTIDINE 20 MG TAB PO SCH ×2 (07:33→21:00)
[2021-02-12] MEDS: DOCUSATE 100 MG CAP PO SCH ×2 (07:33→21:00)
[2021-02-12] MEDS: METOCLOPRAMIDE 5 MG/ML 2 ML VIAL IVP PRN (08:16)
[2021-02-12 11:01] LABS: African American GFR (CKD) 88.8 (60.0-200.0); Albumin 3.4 g/dL (3.8-4.9); Albumin/Globulin Ratio 1.28 (1.60-3.17); Anion Gap 13.2 mmol/L (4.00-12.00); BUN/Creat Ratio 19.11 Ratio (12.00-20.00); Blood Urea Nitrogen 13.8 mg/dL (9.0-27.0); Calcium 8.9 mg/dL (8.7-10.3); Carbon Dioxide 27.8 mmol/L (21.6-31.8); Globulin 2.6 g/dL (1.6-3.3); Non-African American GFR(CKD) 76.6 (60.0-200.0); Potassium 3.8 mmol/L (3.5-5.5); Total Bilirubin 0.9 mg/dL (0.30-1.20)
--- NOTE | 2021-02-12 11:39 | CDI ---
Documentation Clarification Form Date: 02/12/2021 11:20:00 AM From: Jesi Rosales RN CCDS Admit Date: 02/11/2021 03:10:00 PM Patient Name: Nette Swan Visit Number: [id number] Discharge Date: ATTENTION: The Clinical Documentation Specialists (CDI) and [facility] Coding Staff appreciate your assistance in clarifying documentation. Please respond to the clarification below the line at the bottom and electronically sign. The CDI & [facility] Coding staff will review the response and follow-up if needed. Please note: Queries are made part of the Legal Health Record. If you have any questions, please contact the author of this message via ITS. Dr. Darrius Gomez Your patient has the documented diagnosis of unspecified CHF 02/10, H&P. Additional information regarding the acuity of CHF is requested. History/Risk Factors: 85-year-old female presents to [facility] for elective cholecystectomy. Medical history: Atrial Fib and HTN. 02/10 Medicine consult. Clinical Indicators: VS/Pulse OX: B/P 156/73, HR 61, Temp 97.7 Temporal, RR 16, SpO2 99% ra Consult Medicine 02/10: Recent hospital stay for choledocholithiasis and diastolic heart failure. Treatment: 02/11 - current Lasix 40mg po daily, 02/11 current Coreg 12.5mg po bid with meals. In your professional opinion, can you please clarify the acuity of CHF if known? [ ] Chronic Diastolic Heart Failure (preserved EF) [ ] Other, please specify [ ] Unable to determine (Template Last Revised: May 2020) MTDD
--- NOTE | 2021-02-12 12:09 | CDI ---
Documentation Clarification Form Date: 02/12/2021 11:40:35 AM From: Jesi Rosales RN CCDS Admit Date: 02/11/2021 03:10:00 PM Patient Name: Nette Swan Visit Number: [id number] Discharge Date: ATTENTION: The Clinical Documentation Specialists (CDI) and [facility] Coding Staff appreciate your assistance in clarifying documentation. Please respond to the clarification below the line at the bottom and electronically sign. The CDI & [facility] Coding staff will review the response and follow-up if needed. Please note: Queries are made part of the Legal Health Record. If you have any questions, please contact the author of this message via ITS. Dr. Darrius Gomez There is documentation of Cellulitis of the legs,02/10, Medicine consult. Additional clarification is requested. History/Risk Factors: 85-year-old female presents to [facility] for elective cholecystectomy. Medical history: Recent hospital stay for choledocholithiasis and diastolic heart failure, cellulitis of the legs. Atrial Fib and HTN. 02/10, Medicine consult. Clinical Indicators: Surgery Note 02/11 Add IV Zosyn due to patients leukocytosis. Medicine progress note 02/12 85-year-old female status post open cholecystectomy. Continues on IV Zosyn. Nursing Integumentary Assessment 02/10 to 02/12 Within Normal Limits. Treatment: 02/11 to current Zosyn 3.375gm IVPB Q8H. Can you please clarify Cellulitis of the legs? [ ] History of Cellulitis no treatment [ ] Cellulitis this admission with treatment (specify treatment) [ ] Other, please specify [ ] Unable to determine (Template Last Revised: June 2020) MTDD
--- NOTE | 2021-02-12 15:07 | P.PN ---
Subjective Progress Note Date: 02/12/21 CHIEF COMPLAINT: Cholelithiasis HISTORY OF PRESENT ILLNESS: Patient is status post diagnostic laparoscopy and open cholecystectomy for cholelithiasis and massive incisional hernia. Patient is complaining of vomiting. She had 2 episodes last night and 2 episodes this morning. The emesis is brown in color. Initially concerned that there may have been blood in it. That the gastric occult was negative. Patient denies any flatus or bowel movement. Patient is likely developed an ileus. Denies any s ignificant abdominal pain. Afebrile. White count has trended down from 19.7- 17.8 hemoglobin is going up from 12-13. LFTs are normal. She has been on clear liquids. Patient seen and examined with Dr. Poe PHYSICAL EXAM: VITAL SIGNS: Reviewed. GENERAL: Well-developed in no acute distress. HEENT: No sclera icterus. Extraocular movements grossly intact. Moist buccal mucosa. Head is atraumatic, normocephalic. ABDOMEN: Soft. Distended. Evidence of abdominal incisional hernia. Incisi onal dressing clean dry and intact NEUROLOGIC: Alert and oriented. Cranial nerves II through XII grossly intact. ASSESSMENT: 1. Right upper quadrant abdominal pain with cholelithiasis and evidence of a massive incisional hernia status post diagnostic laparoscopy and open cholecystectomy. Postop day #2 2. Leukocytosis 3. Urinary retention 4. Ileus PLAN: -We'll make patient nothing by mouth due to the ileus and vomiting -Change Reglan to scheduled and continue Zosyn as needed -If patient continues to vomit will need to place NG tube -Continue Zosyn due to patient's leukocytosis -Continue Muir catheter -Consult PT OT -Continue pain medication as needed -DVT prophylaxis Eliquis and GI prophylaxis Pepcid Physician Cardroom Attendant note has been reviewed by physician. Signing provider agrees with the documented findings, assessment, and plan of care. Objective - Vital Signs Vital signs: Vital Signs Temp 98.2 F 02/12/21 13: Pulse 96 02/12/21 13:21 Resp 18 02/12/21 13:21 BP 136/77 02/12/21 13:21 Pulse Ox 93 L 02/12/21 13:21 Intake & Output 02/11/21 02/12/21 02/12/21 18:59 06:59 18:59 Intake Total 1340 1325 Output Total 725 480 Balance 615 845 Intake: Intake, IV Titration 1100 1325 Amount D5-0.45% NaCl with KCl 1000 1200 20Meq/l 1,000 ml @ 100 mls/hr IV .Q10H [facility] Rx#: [id number] Piperacillin-Tazobactam 3 100 125 .375 gm In Sodium Chloride 0.9% 100 ml @ 25 mls/hr IVPB Q8H [facility] Rx#: [id number] Oral 240 Output: Urine 725 380 Straight 650 Uretheral (Muir) 75 Emesis 100 Other: Voiding Method Indwelling Catheter Indwelling Catheter Indwelling Catheter - Labs CBC & Chem 7: 02/12/21 06:52 02/12/21 06:52 Labs: Abnormal Lab Results - Last 24 Hours (Table) 02/12/21 02/12/21 Range/Units 06:52 06:52 WBC 17.8 H (3.8-10.6) k/uL Neutrophils # 16.1 H (1.3-7.7) k/uL Anion Gap 13.20 H (4.00-12.00) mmol/L Glucose 150 H (70-110) mg/dL Total Protein 6.0 L (6.2-8.2) g/dL Albumin 3.4 L (3.8-4.9) g/dL Albumin/Globulin Ratio 1.28 L (1.60-3.17) g/dL
[2021-02-12] MEDS: METOCLOPRAMIDE 5 MG/ML 2 ML VIAL IVP SCH ×2 (15:43→21:01)
[2021-02-12] MEDS: ATORVASTATIN 10 MG TAB PO SCH (21:00)
--- NOTE | 2021-02-13 00:17 | PN ---
PROGRESS NOTE 85-year-old white female, status post open cholecystectomy for choledocholithiasis, having no chest pain or shortness of breath. No lightheadedness, dizziness or syncope. Cardiovascular S1-S2. Hematology: Negative Homans'. Psych: Fair mood and affect. ASSESSMENT: 1. Diastolic heart failure. 2. Status post open cholecystectomy for chronic cholecystitis. 3. Hypertension. 4. Dementia with some delirium. Patient is improving medically. She gets some nausea with clear liquid diet and slowly advance her diet. Give her antinausea medicines. Possible discharge when cleared from surgery. MMODL / IJN: [id number] /
[2021-02-13] MEDS: PIPERACILLIN-TAZOBACTAM 3.375 GM in SODIUM CHLORIDE 0.9% 100 ML IVPB SCH ×3 (04:42→21:28)
[2021-02-13] MEDS: METOCLOPRAMIDE 5 MG/ML 2 ML VIAL IVP SCH ×4 (04:43→22:06)
[2021-02-13 06:17] LABS: Basophils % (A) 0 %; Eosinophils # (A) 0.1 k/uL (0-0.7); Eosinophils % (A) 1 %; HCT 39.9 % (34.0-46.0); HGB 12.9 gm/dL (11.4-16.0); Lymphocytes # (A) 0.9 k/uL (1.0-4.8); Lymphocytes % (A) 5 %; MCHC 32.3 g/dL (31.0-37.0); MCV 95.9 fL (80.0-100.0); Mean Platelet Volume 8.8; Monocytes # (A) 0.7 k/uL (0-1.0); Monocytes % (A) 4 %; Neutrophils # (A) 16.5 k/uL (1.3-7.7); Neutrophils % (A) 89 %; Platelet Count 308 k/uL (150-450); RBC 4.16 m/uL (3.80-5.40); RDW 12.9 % (11.5-15.5); WBC 18.5 k/uL (3.8-10.6)
[2021-02-13] MEDS: APIXABAN 5 MG TAB PO SCH ×2 (07:20→20:21)
[2021-02-13] MEDS: FAMOTIDINE 20 MG TAB PO SCH ×2 (07:20→20:21)
[2021-02-13] MEDS: DOCUSATE 100 MG CAP PO SCH ×2 (07:20→20:21)
[2021-02-13] MEDS: carvediloL 12.5 MG TAB PO SCH ×2 (07:20→17:29)
[2021-02-13] MEDS: LOSARTAN 50 MG TAB PO SCH (07:20)
[2021-02-13] MEDS: MULTIVITAMINS, THERA 1 EACH TAB PO SCH (07:21)
[2021-02-13] MEDS: FUROSEMIDE 40 MG TAB PO SCH (07:21)
--- NOTE | 2021-02-13 11:24 | P.PN ---
<Cheryl Kinney - Last Filed: 02/13/21 11:19> Subjective Progress Note Date: 02/13/21 CHIEF COMPLAINT: Cholelithiasis HISTORY OF PRESENT ILLNESS: Patient is status post diagnostic laparoscopy and open cholecystectomy for cholelithiasis and massive incisional hernia. Patient continued to have vomiting throughout the day yesterday. NG tube was placed. She had 3.5 L output with initial NG tube placement. She had 1.3 L through the night. She is complaining of heartburn. Denies any flatus or BM. Afebrile WBC did go up from 17.8-18.5 hemoglobin 12.9 LFTs yesterday are normal PHYSICAL EXAM: VITAL SIGNS: Reviewed. GENERAL: Well-developed in no acute distress. HEENT: No sclera icterus. Extraocular movements grossly intact. Moist buccal mucosa. Head is atraumatic, normocephalic. ABDOMEN: Soft. Distended. Evidence of large abdominal incisional hernia. Incisional dressing clean dry and intact NEUROLOGIC: Alert and oriented. Cranial nerves II through XII grossly intact. ASSESSMENT: 1. Right upper quadrant abdominal pain with cholelithiasis and evidence of a massive incisional hernia status post diagnostic laparoscopy and open cholecystectomy. Postop day #3 2. Leukocytosis 3. Urinary retention 4. Ileus PLAN: -Continue NG tube for decompression -Continue scheduled Reglan -Continue antibiotics -Add IV Protonix for heartburn -Continue Muir catheter -Consult PT OT -Continue pain medication as needed -DVT prophylaxis Eliquis and GI prophylaxis Protonix Physician Rail Washer note has been reviewed by physician. Signing provider agrees with the documented findings, assessment, and plan of care. Objective - Vital Signs Vital signs: Vital Signs Temp 98.9 F 02/13/21 05:00 Pulse 89 02/13/21 05:00 Resp 20 02/13/21 05:00 BP 112/67 02/13/21 05:00 Pulse Ox 90 L 02/13/21 05:00 Intake & Output 02/12/21 02/13/21 02/13/21 18:59 06:59 18:59 Intake Total 1400 Output Total 3450 1520 Balance -3450 -120 Intake: Intake, IV Titration 1400 Amount D5-0.45% NaCl with KCl 1200 20Meq/l 1,000 ml @ 100 mls/hr IV .Q10H [facility] Rx#: [id number] Piperacillin-Tazobactam 3 200 .375 gm In Sodium Chloride 0.9% 100 ml @ 25 mls/hr IVPB Q8H [facility] Rx#: [id number] Output: Gastric Drainage 3450 1300 Urine 220 Other: Voiding Method Indwelling Catheter Indwelling Catheter Indwelling Catheter - Labs CBC & Chem 7: 02/13/21 05:59 02/12/21 06:52 Labs: Abnormal Lab Results - Last 24 Hours (Table) 02/13/21 Range/Units 05:59 WBC 18.5 H (3.8-10.6) k/uL Neutrophils # 16.5 H (1.3-7.7) k/uL Lymphocytes # 0.9 L (1.0-4.8) k/uL <Ronald Marion - Last Filed: 02/13/21 13:59> Subjective As above. Patient feels well. NG tube with significant output yesterday. No significant pain. Continue to monitor her white blood cell count. Keep nothing by mouth. Crease activity as tolerated. Objective - Vital Signs Vital signs: Vital Signs Temp 98.7 F 02/13/21 12:40 Pulse 80 02/13/21 12:40 Resp 18 02/13/21 12:40 BP 135/77 02/13/21 12:40 Pulse Ox 99 02/13/21 12:40 Intake & Output 02/12/21 02/13/21 02/13/21 18:59 06:59 18:59 Intake Total 1400 Output Total 3450 1520 Balance -3450 -120 Intake: Intake, IV Titration 1400 Amount D5-0.45% NaCl with KCl 1200 20Meq/l 1,000 ml @ 100 mls/hr IV .Q10H [facility] Rx#: [id number] Piperacillin-Tazobactam 3 200 .375 gm In Sodium Chloride 0.9% 100 ml @ 25 mls/hr IVPB Q8H [facility] Rx#: [id number] Output: Gastric Drainage 3450 1300 Urine 220 Other: Voiding Method Indwelling Catheter Indwelling Catheter Indwelling Catheter - Labs CBC & Chem 7: 02/13/21 05:59 02/12/21 06:52 Labs: Abnormal Lab Results - Last 24 Hours (Table) 02/13/21 Range/Units 05:59 WBC 18.5 H (3.8-10.6) k/uL Neutrophils # 16.5 H (1.3-7.7) k/uL Lymphocytes # 0.9 L (1.0-4.8) k/uL
[2021-02-13] MEDS: PANTOPRAZOLE 40 MG/10 ML VIAL IVP SCH (12:40)
[2021-02-13 15:02] LABS: African American GFR (CKD) 85.2 (60.0-200.0); Albumin 3.2 g/dL (3.8-4.9); Albumin/Globulin Ratio 1.21 (1.60-3.17); Anion Gap 13.1 mmol/L (4.00-12.00); BUN/Creat Ratio 20.62 Ratio (12.00-20.00); Blood Urea Nitrogen 15.4 mg/dL (9.0-27.0); Calcium 8.9 mg/dL (8.7-10.3); Globulin 2.6 g/dL (1.6-3.3); Non-African American GFR(CKD) 73.6 (60.0-200.0); Potassium 3.4 mmol/L (3.5-5.5); Total Protein 5.8 g/dL (6.2-8.2)
[2021-02-13] MEDS: D5-0.45% NACL WITH KCL 20MEQ/L 1,000 ML IV SCH ×2 (15:48→18:58)
[2021-02-13] MEDS: ATORVASTATIN 10 MG TAB PO SCH (20:21)
[2021-02-14] MEDS: METOCLOPRAMIDE 5 MG/ML 2 ML VIAL IVP SCH ×4 (04:27→21:44)
[2021-02-14] MEDS ORDERED: BENZOCAINE SPRAY 1 CAN MUCOUS MEM PRN (04:31)
[2021-02-14] MEDS: PIPERACILLIN-TAZOBACTAM 3.375 GM in SODIUM CHLORIDE 0.9% 100 ML IVPB SCH ×3 (05:09→21:44)
[2021-02-14] MEDS: FAMOTIDINE 20 MG TAB PO SCH ×2 (08:10→20:01)
[2021-02-14] MEDS: MULTIVITAMINS, THERA 1 EACH TAB PO SCH (08:10)
[2021-02-14] MEDS: FUROSEMIDE 40 MG TAB PO SCH (08:10)
[2021-02-14] MEDS: LOSARTAN 50 MG TAB PO SCH (08:10)
[2021-02-14] MEDS: APIXABAN 5 MG TAB PO SCH ×2 (08:10→20:00)
[2021-02-14] MEDS: DOCUSATE 100 MG CAP PO SCH ×2 (08:10→20:01)
[2021-02-14] MEDS: PANTOPRAZOLE 40 MG/10 ML VIAL IVP SCH (08:10)
[2021-02-14] MEDS: carvediloL 12.5 MG TAB PO SCH ×2 (08:11→18:25)
[2021-02-14] MEDS: D5-0.45% NACL WITH KCL 20MEQ/L 1,000 ML IV SCH ×3 (08:11→18:26)
[2021-02-14 09:06] LABS: African American GFR (CKD) >90 (>60 ml/min/1.73 sqM); Anion Gap 3 mmol/L; Blood Urea Nitrogen 15 mg/dL (7-17); Calcium 8.7 mg/dL (8.4-10.2); Carbon Dioxide 39 mmol/L (22-30); Chloride 96 mmol/L (98-107); Glucose 145 mg/dL (74-99); Non-African American GFR(CKD) 82 (>60 ml/min/1.73 sqM); Potassium 3.3 mmol/L (3.5-5.1); Sodium 138 mmol/L (137-145)
[2021-02-14 09:10] LABS: Basophils % (A) 0 %; Eosinophils # (A) 0.1 k/uL (0-0.7); Eosinophils % (A) 1 %; HCT 36.2 % (34.0-46.0); HGB 11.5 gm/dL (11.4-16.0); Lymphocytes # (A) 1.1 k/uL (1.0-4.8); Lymphocytes % (A) 8 %; MCHC 31.7 g/dL (31.0-37.0); MCV 97.7 fL (80.0-100.0); Mean Platelet Volume 8.6; Monocytes # (A) 0.7 k/uL (0-1.0); Monocytes % (A) 5 %; Neutrophils % (A) 85 %; Platelet Count 308 k/uL (150-450); RDW 12.8 % (11.5-15.5)
[2021-02-14] MEDS ORDERED: Potassium Replacement Protocol 1 EACH MISC MISCELLANE PRN (09:25)
[2021-02-14] MEDS: POTASSIUM CHLORIDE ER 20 MEQ TAB.ER PO SCH ×3 (11:12→21:03)
--- NOTE | 2021-02-14 11:30 | P.PN ---
<Cheryl Kinney - Last Filed: 02/14/21 11:19> Subjective Progress Note Date: 02/14/21 CHIEF COMPLAINT: Cholelithiasis HISTORY OF PRESENT ILLNESS: Patient is status post diagnostic laparoscopy and open cholecystectomy for cholelithiasis and massive incisional hernia. Postop day #4. Patient has NG tube in place with 400 mL of dark brownish output. She denies any flatus or BM. She reports that her pain is controlled. Denies any nausea. She does have Muir catheter in place due to urinary retention. Afebrile. WBC 18.5 down to 13 hemoglobin 11.5 sodium 138 potassium 3.3 creatinine 0.65 PHYSICAL EXAM: VITAL SIGNS: Reviewed. GENERAL: Well-developed in no acute distress. HEENT: No sclera icterus. Extraocular movements grossly intact. Moist buccal mucosa. Head is atraumatic, normocephalic. ABDOMEN: Soft. Distended. Evidence of large abdominal incisional hernia. Incisional 2 very small areas of dried blood noted on incision. Otherwise clean dry and intact NEUROLOGIC: Alert and oriented. Cranial nerves II through XII grossly intact. ASSESSMENT: 1. Right upper quadrant abdominal pain with cholelithiasis and evidence of a massive incisional hernia status post diagnostic laparoscopy and open cholecystectomy. 2. Leukocytosis 3. Urinary retention 4. Ileus 5. Hypokalemia PLAN: -Medicine service replacing potassium -Continue NG tube for decompression -Continue scheduled Reglan -Continue antibiotics -Continue Muir catheter -Consult PT OT -Continue pain medication as needed -DVT prophylaxis Eliquis and GI prophylaxis Protonix Physician Shape Carver note has been reviewed by physician. Signing provider agrees with the documented findings, assessment, and plan of care. Objective - Vital Signs Vital signs: Vital Signs Temp 99.2 F 02/14/21 04:28 Pulse 97 02/14/21 04:28 Resp 20 02/14/21 04:28 BP 138/70 02/14/21 04:28 Pulse Ox 95 02/14/21 04:28 Intake & Output 02/13/21 02/14/21 02/14/21 18:59 06:59 18:59 Intake Total 1000 Output Total 1400 625 Balance -1400 375 Intake: Intake, IV Titration 1000 Amount D5-0.45% NaCl with KCl 900 20Meq/l 1,000 ml @ 100 mls/hr IV .Q10H [facility] Rx#: [id number] Piperacillin-Tazobactam 3 100 .375 gm In Sodium Chloride 0.9% 100 ml @ 25 mls/hr IVPB Q8H [facility] Rx#: [id number] Oral 0 Output: Gastric Drainage 900 400 Urine 500 225 Other: Voiding Method Indwelling Catheter Indwelling Catheter Indwelling Catheter - Labs CBC & Chem 7: 02/14/21 08:23 02/14/21 08:23 Labs: Abnormal Lab Results - Last 24 Hours (Table) 02/13/21 02/14/21 02/14/21 Range/Units 05:59 08:23 08:23 WBC 13.0 H (3.8-10.6) k/uL RBC 3.70 L (3.80-5.40) m/uL Neutrophils # 11.0 H (1.3-7.7) k/uL Potassium 3.4 L 3.3 L (3.5-5.5) mmol/L Chloride 96 L (98-107) mmol/L Carbon Dioxide 34.0 H 39 H (21.6-31.8) mmol/L Anion Gap 13.10 H (4.00-12.00) mmol/L BUN/Creatinine Ratio 20.62 H (12.00-20.00) Ratio Glucose 149 H 145 H (70-110) mg/dL Total Protein 5.8 L (6.2-8.2) g/dL Albumin 3.2 L (3.8-4.9) g/dL Albumin/Globulin Ratio 1.21 L (1.60-3.17) g/dL <Ronald Marion - Last Filed: 02/14/21 15:02> Subjective As above. Nasogastric output seems to be improved. Labs improved. No significant pain. Patient has not had flatus or bowel movement thus far however. Keep nasogastric tube. Hopefully remove tomorrow. Objective - Vital Signs Vital signs: Vital Signs Temp 98.4 F 02/14/21 12:00 Pulse 78 02/14/21 12:00 Resp 15 02/14/21 12:00 BP 127/72 02/14/21 12:00 Pulse Ox 98 02/14/21 12:00 Intake & Output 02/13/21 02/14/21 02/14/21 18:59 06:59 18:59 Intake Total 1000 Output Total 1400 625 150 Balance -1400 375 -150 Intake: Intake, IV Titration 1000 Amount D5-0.45% NaCl with KCl 900 20Meq/l 1,000 ml @ 100 mls/hr IV .Q10H [facility] Rx#: [id number] Piperacillin-Tazobactam 3 100 .375 gm In Sodium Chloride 0.9% 100 ml @ 25 mls/hr IVPB Q8H [facility] Rx#: [id number] Oral 0 Output: Gastric Drainage 900 400 150 Urine 500 225 Emesis 0 Other: Voiding Method Indwelling Catheter Indwelling Catheter Indwelling Catheter # Bowel Movements 0 - Labs CBC & Chem 7: 02/14/21 08:23 02/14/21 08:23 Labs: Abnormal Lab Results - Last 24 Hours (Table) 02/13/21 02/14/21 02/14/21 Range/Units 05:59 08:23 08:23 WBC 13.0 H (3.8-10.6) k/uL RBC 3.70 L (3.80-5.40) m/uL Neutrophils # 11.0 H (1.3-7.7) k/uL Potassium 3.4 L 3.3 L (3.5-5.5) mmol/L Chloride 96 L (98-107) mmol/L Carbon Dioxide 34.0 H 39 H (21.6-31.8) mmol/L Anion Gap 13.10 H (4.00-12.00) mmol/L BUN/Creatinine Ratio 20.62 H (12.00-20.00) Ratio Glucose 149 H 145 H (70-110) mg/dL Total Protein 5.8 L (6.2-8.2) g/dL Albumin 3.2 L (3.8-4.9) g/dL Albumin/Globulin Ratio 1.21 L (1.60-3.17) g/dL
[2021-02-14 15:35] VITALS: BMI 36.8
--- NOTE | 2021-02-14 18:02 | PN ---
PROGRESS NOTE DATE OF SERVICE: 02/13/2021 85-year-old white female status post open cholecystectomy. Has NG tube for possible ileus versus bowel obstruction. She is sitting up in a chair. She feels okay. No chest pain, shortness of breath. She has an NG tube in her nose. Neurologic: Cranial nerves intact. Giving appropriate answers. Cardiovascular S1, S2. Lungs clear. ASSESSMENT: 1. Right upper quadrant abdominal pain with cholelithiasis. 2. Evidence of a massive incisional hernia. 3. Status post laparoscopy. 4. Open cholecystectomy. 5. Leukocytosis. 6. Urinary retention. 7. Ileus. 8. Hypokalemia. Replace potassium. NG tube. Antibiotics. Wood Stoner. PT/OT. Prognosis guarded. Continue current treatments. Saturating 95, blood pressure 130s over 70s, respiratory 18-20, temp 99.2, and pulse is in the low 90s. MMODL / IJN: [id number] /
[2021-02-14] MEDS: ATORVASTATIN 10 MG TAB PO SCH (20:01)
[2021-02-15] MEDS: METOCLOPRAMIDE 5 MG/ML 2 ML VIAL IVP SCH ×4 (04:34→22:33)
[2021-02-15] MEDS: PIPERACILLIN-TAZOBACTAM 3.375 GM in SODIUM CHLORIDE 0.9% 100 ML IVPB SCH ×3 (04:35→20:28)
[2021-02-15 07:14] LABS: Basophils % (A) 0 %; Eosinophils # (A) 0.2 k/uL (0-0.7); Eosinophils % (A) 1 %; HCT 35.7 % (34.0-46.0); HGB 11.3 gm/dL (11.4-16.0); Lymphocytes % (A) 10 %; MCH 30.5 pg (25.0-35.0); MCHC 31.7 g/dL (31.0-37.0); MCV 96.3 fL (80.0-100.0); Mean Platelet Volume 8.6; Monocytes # (A) 0.7 k/uL (0-1.0); Monocytes % (A) 6 %; Neutrophils # (A) 8.2 k/uL (1.3-7.7); Neutrophils % (A) 80 %; Platelet Count 302 k/uL (150-450); RBC 3.71 m/uL (3.80-5.40); RDW 12.7 % (11.5-15.5); WBC 10.2 k/uL (3.8-10.6)
[2021-02-15] MEDS: DOCUSATE 100 MG CAP PO SCH ×2 (08:16→20:27)
[2021-02-15] MEDS: PANTOPRAZOLE 40 MG/10 ML VIAL IVP SCH (08:17)
[2021-02-15] MEDS: carvediloL 12.5 MG TAB PO SCH ×2 (08:17→17:31)
[2021-02-15] MEDS: FUROSEMIDE 40 MG TAB PO SCH (08:17)
[2021-02-15] MEDS: APIXABAN 5 MG TAB PO SCH ×2 (08:17→20:27)
[2021-02-15] MEDS: FAMOTIDINE 20 MG TAB PO SCH ×2 (08:17→20:27)
[2021-02-15] MEDS: LOSARTAN 50 MG TAB PO SCH (08:17)
[2021-02-15] MEDS: MULTIVITAMINS, THERA 1 EACH TAB PO SCH (08:17)
--- NOTE | 2021-02-15 09:40 | P.PN ---
Subjective Progress Note Date: 02/15/21 Principal diagnosis: Cholecystitis Patient doing well today. She passed gas overnight. No nausea or vomiting. Says her pain is mild. White blood cell count 10.2, hemoglobin 11.3. Objective - Vital Signs Vital signs: Vital Signs Temp 98.5 F 02/15/21 04:30 Pulse 86 02/15/21 04:30 Resp 20 02/15/21 04:30 BP 134/71 02/15/21 04:30 Pulse Ox 97 02/15/21 04:30 Intake & Output 02/14/21 02/15/21 02/15/21 18:59 06:59 18:59 Intake Total 100 Output Total 800 600 Balance -800 -500 Weight 100.5 kg Intake: Oral 100 Output: Gastric Drainage 150 100 Urine 650 500 Uretheral (Muir) 250 Emesis 0 Other: Voiding Method Indwelling Catheter Indwelling Catheter Indwelling Catheter # Bowel Movements 0 - Exam Abdomen: Soft, nondistended, dressing clean and dry, minimal tenderness - Labs CBC & Chem 7: 02/15/21 06:54 02/14/21 15:00 Labs: Abnormal Lab Results - Last 24 Hours (Table) 02/14/21 02/15/21 Range/Units 15:00 06:54 RBC 3.71 L (3.80-5.40) m/uL Hgb 11.3 L (11.4-16.0) gm/dL Neutrophils # 8.2 H (1.3-7.7) k/uL Potassium 3.4 L (3.5-5.1) mmol/L Assessment and Plan (1) Cholelithiasis Narrative/Plan: Patient seems to be improving. Ileus likely resolving. Probably will have nasogastric tube removed today. Activity. Current Visit: Yes Status: Acute Code(s): K80.20 - CALCULUS OF GALLBLADDER W/O CHOLECYSTITIS W/O OBSTRUCTION SNOMED Code(s): 497182672
[2021-02-15] MEDS: D5-0.45% NACL WITH KCL 20MEQ/L 1,000 ML IV SCH ×2 (13:23→22:33)
[2021-02-15 13:37] LABS: Albumin 2.8 g/dL (3.8-4.9); Albumin/Globulin Ratio 1.22 (1.60-3.17); Anion Gap 9.5 mmol/L (4.00-12.00); BUN/Creat Ratio 20.5 Ratio (12.00-20.00); Blood Urea Nitrogen 12.3 mg/dL (9.0-27.0); Calcium 8.7 mg/dL (8.7-10.3); Carbon Dioxide 31.5 mmol/L (21.6-31.8); Globulin 2.3 g/dL (1.6-3.3); Magnesium 1.8 mg/dL (1.5-2.4); Non-African American GFR(CKD) 83.7 (60.0-200.0); Phosphorus 2.5 mg/dL (2.4-5.1); Potassium 3.8 mmol/L (3.5-5.5); Total Bilirubin 0.8 mg/dL (0.30-1.20); Total Protein 5.1 g/dL (6.2-8.2)
--- NOTE | 2021-02-15 16:06 | PN ---
PROGRESS NOTE 85-year-old white female who has ileus postop. She has NG tube in, postop with cholecystectomy. Otherwise, she is sitting up in bed, stable. Her temperature is 98, She is 98 on 2 L, blood pressure 120s-130s/70s, respiratory 18-20, pulse is 70s. Cardiovascular S1, S2. Lungs clear. GI soft. Hematology negative Homans. Try to wean off NG tube if she passes gas or stools and then possibly discharge home after this occurs. Otherwise, continue postop care for CHF, cellulitis of the legs. Everything appears to be stable. Continue home medications. Prognosis guarded. MMODL / IJN: [id number] /
[2021-02-15] MEDS: ATORVASTATIN 10 MG TAB PO SCH (20:27)
[2021-02-16] MEDS: METOCLOPRAMIDE 5 MG/ML 2 ML VIAL IVP SCH ×4 (04:51→21:02)
[2021-02-16] MEDS: PIPERACILLIN-TAZOBACTAM 3.375 GM in SODIUM CHLORIDE 0.9% 100 ML IVPB SCH ×3 (05:19→21:03)
[2021-02-16] MEDS: MULTIVITAMINS, THERA 1 EACH TAB PO SCH (08:57)
[2021-02-16] MEDS: DOCUSATE 100 MG CAP PO SCH ×2 (08:57→21:02)
[2021-02-16] MEDS: D5-0.45% NACL WITH KCL 20MEQ/L 1,000 ML IV SCH ×2 (08:57→19:40)
[2021-02-16] MEDS: PANTOPRAZOLE 40 MG/10 ML VIAL IVP SCH (08:57)
[2021-02-16] MEDS: FAMOTIDINE 20 MG TAB PO SCH ×2 (08:57→21:02)
[2021-02-16] MEDS: carvediloL 12.5 MG TAB PO SCH ×2 (08:57→17:37)
[2021-02-16] MEDS: FUROSEMIDE 40 MG TAB PO SCH (08:57)
[2021-02-16] MEDS: LOSARTAN 50 MG TAB PO SCH (08:57)
[2021-02-16] MEDS: APIXABAN 5 MG TAB PO SCH ×2 (08:57→19:40)
--- NOTE | 2021-02-16 09:51 | P.PN ---
Subjective Progress Note Date: 02/16/21 Principal diagnosis: Cholecystitis Patient doing well today. Had a bowel movement and flatus. She is developing more of an appetite. Only has pain with coughing. Objective - Vital Signs Vital signs: Vital Signs Temp 98.4 F 02/16/21 04:50 Pulse 84 02/16/21 04:50 Resp 20 02/16/21 04:50 BP 137/78 02/16/21 04:50 Pulse Ox 94 L 02/16/21 04:50 Intake & Output 02/15/21 02/16/21 02/16/21 19:59 06:59 18:59 Intake Total Output Total Balance Intake: Oral Output: Urine Uretheral (Muir) Other: Voiding Method # Bowel Movements - Exam Abdomen: Soft, nondistended, dressing clean dry, mild incisional tenderness - Labs CBC & Chem 7: 02/15/21 06:54 02/15/21 06:54 Labs: Abnormal Lab Results - Last 24 Hours (Table) 02/15/21 Range/Units 06:54 BUN/Creatinine Ratio 20.50 H (12.00-20.00) Ratio Glucose 112 H (70-110) mg/dL Total Protein 5.1 L (6.2-8.2) g/dL Albumin 2.8 L (3.8-4.9) g/dL Albumin/Globulin Ratio 1.22 L (1.60-3.17) g/dL Assessment and Plan (1) Cholelithiasis Narrative/Plan: Patient doing well at this time. Begin clear liquid diet. Ambulate. Current Visit: Yes Status: Acute Code(s): K80.20 - CALCULUS OF GALLBLADDER W/O CHOLECYSTITIS W/O OBSTRUCTION SNOMED Code(s): 759802403
--- NOTE | 2021-02-16 11:33 | PN ---
PROGRESS NOTE 85-year-old white female. NG tube has been removed for ileus. Last bowel obstruction. She has not had anything by mouth yet. She has had some gas. Has poor appetite. She is afebrile. Temp 94, pulse 80s, respiratory 16-20, blood pressure 130s over 70s. O2 94. Cardiovascular S1-S2. Lungs clear. GI soft. Incisional pain on the right upper quadrant. White count 10.2. ASSESSMENT: Status post open cholecystectomy. Plan is advance diet. Once cleared by surgery, she can possibly be discharged. MMODL / IJN: [id number] /
[2021-02-16] MEDS: ATORVASTATIN 10 MG TAB PO SCH (21:02)
[2021-02-17] MEDS: METOCLOPRAMIDE 5 MG/ML 2 ML VIAL IVP SCH ×4 (04:29→22:13)
[2021-02-17] MEDS: D5-0.45% NACL WITH KCL 20MEQ/L 1,000 ML IV SCH ×2 (04:30→16:25)
[2021-02-17] MEDS: PIPERACILLIN-TAZOBACTAM 3.375 GM in SODIUM CHLORIDE 0.9% 100 ML IVPB SCH ×3 (04:30→21:45)
[2021-02-17] MEDS: DOCUSATE 100 MG CAP PO SCH ×2 (08:32→21:47)
[2021-02-17] MEDS: APIXABAN 5 MG TAB PO SCH ×2 (08:32→19:59)
[2021-02-17] MEDS: MULTIVITAMINS, THERA 1 EACH TAB PO SCH (08:32)
[2021-02-17] MEDS: FAMOTIDINE 20 MG TAB PO SCH ×2 (08:32→21:47)
[2021-02-17] MEDS: PANTOPRAZOLE 40 MG/10 ML VIAL IVP SCH (08:32)
[2021-02-17] MEDS: carvediloL 12.5 MG TAB PO SCH ×2 (08:32→17:26)
[2021-02-17] MEDS: FUROSEMIDE 40 MG TAB PO SCH (08:32)
[2021-02-17] MEDS: LOSARTAN 50 MG TAB PO SCH (08:32)
[2021-02-17 09:56] LABS: Basophils % (A) 1 %; Eosinophils # (A) 0.2 k/uL (0-0.7); Eosinophils % (A) 2 %; HCT 36.1 % (34.0-46.0); HGB 11.5 gm/dL (11.4-16.0); Lymphocytes % (A) 12 %; MCH 30.6 pg (25.0-35.0); MCHC 31.8 g/dL (31.0-37.0); MCV 96.3 fL (80.0-100.0); Mean Platelet Volume 8.6; Monocytes # (A) 0.5 k/uL (0-1.0); Monocytes % (A) 6 %; Neutrophils # (A) 6.5 k/uL (1.3-7.7); Neutrophils % (A) 78 %; Platelet Count 356 k/uL (150-450); RBC 3.75 m/uL (3.80-5.40); RDW 12.6 % (11.5-15.5); WBC 8.3 k/uL (3.8-10.6)
--- NOTE | 2021-02-17 11:13 | P.PN ---
Subjective Progress Note Date: 02/17/21 CHIEF COMPLAINT: Cholelithiasis HISTORY OF PRESENT ILLNESS: Patient is status post diagnostic laparoscopy and open cholecystectomy for cholelithiasis and massive incisional hernia. Patient is having flatus and bowel movement. Denies any nausea or vomiting. NG tube was discontinued over the weekend and she is currently on a clear liquid diet. She's sitting at bedside chair. She has not been ambulating very much. And she is planning to be discharged to [facility] at time of discharge. A febrile. WBC is 8.3 hemoglobin 11.5 PHYSICAL EXAM: VITAL SIGNS: Reviewed. GENERAL: Well-developed in no acute distress. HEENT: No sclera icterus. Extraocular movements grossly intact. Moist buccal mucosa. Head is atraumatic, normocephalic. ABDOMEN: Soft. Evidence of large abdominal incisional hernia. Incision site clean dry and intact NEUROLOGIC: Alert and oriented. Cranial nerves II through XII grossly intact. ASSESSMENT: 1. Right upper quadrant abdominal pain with cholelithiasis and evidence of a massive incisional hernia status post diagnostic laparoscopy and open cholecystectomy. 2. Leukocytosis resolved 3. Urinary retention 4. Ileus resolved 5. Hypokalemia PLAN: -Advance diet to full liquids -Continue antibiotics -Continue pain medication as needed -Encouraged patient ambulates -Encouraged patient to use incentive spirometer -DVT prophylaxis Eliquis and GI prophylaxis Protonix Physician Alarm Service Technician note has been reviewed by physician. Signing provider agrees with the documented findings, assessment, and plan of care. Objective - Vital Signs Vital signs: Vital Signs Temp 98.1 F 02/17/21 05:00 Pulse 78 02/17/21 05:00 Resp 16 02/17/21 05:00 BP 120/74 02/17/21 05:00 Pulse Ox 93 L 02/17/21 05:00 Intake & Output 02/16/21 02/17/21 02/17/21 18:59 06:59 18:59 Intake Total 1300 Output Total 1 1300 Balance 1299 -1300 Intake: Intake, IV Titration 1300 Amount D5-0.45% NaCl with KCl 1200 20Meq/l 1,000 ml @ 100 mls/hr IV .Q10H EDILMA Rx#: [id number] Piperacillin-Tazobactam 3 100 .375 gm In Sodium Chloride 0.9% 100 ml @ 25 mls/hr IVPB Q8H EDILMA Rx#: [id number] Output: Urine 1300 Stool 1 Other: Voiding Method Indwelling Catheter Indwelling Catheter Indwelling Catheter - Labs CBC & Chem 7: 02/17/21 09:35 02/15/21 06:54 Labs: Abnormal Lab Results - Last 24 Hours (Table) 02/17/21 Range/Units 09:35 RBC 3.75 L (3.80-5.40) m/uL
[2021-02-17] MEDS: ATORVASTATIN 10 MG TAB PO SCH (21:47)
--- NOTE | 2021-02-17 22:49 | PN ---
PROGRESS NOTE 85-year-old white female wound status post open cholecystectomy. NG tube has been removed. I then advanced diet today. Temp 98. O2 93 to 95 on room air, blood pressure 107 to 108 over 68 to 70, pulse 60s, respiratory 16 to 18. Cardiovascular: S1, S2. Lungs clear. GI soft. ASSESSMENT: 1. Diastolic heart failure. 2. Cellulitis of the legs. 3. Status post open cholecystectomy. We are going to take some leena out. Possible discharge tomorrow. She tolerates an oral diet. MMODL / IJN: [id number] /
[2021-02-18] MEDS: D5-0.45% NACL WITH KCL 20MEQ/L 1,000 ML IV SCH ×2 (01:24→13:29)
[2021-02-18] MEDS: METOCLOPRAMIDE 5 MG/ML 2 ML VIAL IVP SCH ×2 (04:00→10:15)
[2021-02-18] MEDS: PIPERACILLIN-TAZOBACTAM 3.375 GM in SODIUM CHLORIDE 0.9% 100 ML IVPB SCH ×2 (05:35→14:10)
[2021-02-18] MEDS: DOCUSATE 100 MG CAP PO SCH (09:48)
[2021-02-18] MEDS: LOSARTAN 50 MG TAB PO SCH (09:48)
[2021-02-18] MEDS: FAMOTIDINE 20 MG TAB PO SCH (09:48)
[2021-02-18] MEDS: carvediloL 12.5 MG TAB PO SCH (09:48)
[2021-02-18] MEDS: MULTIVITAMINS, THERA 1 EACH TAB PO SCH (09:48)
[2021-02-18] MEDS: PANTOPRAZOLE 40 MG/10 ML VIAL IVP SCH (09:48)
[2021-02-18] MEDS: APIXABAN 5 MG TAB PO SCH (09:48)
[2021-02-18] MEDS: FUROSEMIDE 40 MG TAB PO SCH (09:49)
--- NOTE | 2021-02-18 12:24 | P.DS ---
Providers Date of admission: 02/11/21 15:10 Expected date of discharge: 02/18/21 Attending physician: Madhav Poe Consults: 02/10/21 13:25 Consult Physician Routine Consulting Provider: Darrius Gomez Consult Reason/Comments: Management Do you want consulting provider notified?: Yes Primary care physician: Alex Gomez Hospital Course: Discharge diagnosis 1. Symptomatic cholelithiasis and evidence of a massive incisional hernia status post diagnostic laparoscopy and open cholecystectomy. 2. Leukocytosis resolved 3. Urinary retention resolved 4. Postoperative Ileus can be an expected finding. Now resolved 5. Hypokalemia resolved Hospital course This 85-year-old female who presented to the hospital with right upper quadrant abdominal pain and known history of cholelithiasis. Patient is status post open cholecystectomy due to her massive incisional hernia. Patient developed a postoperative ileus. Patient had NG tube inserted. Ileus did resolved. She started to have bowel activity. NG tube removed. Diet was advanced and tolerated. Her white count has normalized. She is afebrile. She is worked with physical therapy and they are recommending discharge to subacute rehab. Patient is stable for discharge. Please refer to chart for any further details. Physician Inserter Promotional Item note has been reviewed by physician. Signing provider agrees with the documented findings, assessment, and plan of care. Patient Condition at Discharge: Stable Plan - Discharge Summary Discharge Rx Participant: Yes New Discharge Prescriptions: Continue Apixaban [Eliquis] 5 mg PO BID@0700,1900 Ascorbic Acid [Vitamin C] 500 mg PO DAILY Atorvastatin [Lipitor] 10 mg PO HS Cholecalciferol [Vitamin D3 (25 Mcg = 1000 Iu)] 25 mcg PO DAILY Famotidine [Pepcid] 20 mg PO BID Furosemide [Lasix] 40 mg PO DAILY Vitamin E 1,000 unit PO DAILY carvediloL [Coreg*] 12.5 mg PO BID-W/MEALS tab Losartan [Cozaar] 50 mg PO DAILY tab Acetaminophen Tab [Tylenol] 650 mg PO Q6HR PRN tab PRN Reason: Fever And/ Or Pain Docusate Sodium [Dok] 250 mg PO DAILY PRN PRN Reason: Constipation Multivitamins, Thera [Multivitamin (formulary)] 1 tab PO DAILY Discontinued Amoxicillin/Potassium Clav [Augmentin 875-125 Tablet] 1 tab PO BID Enoxaparin [Lovenox] 100 mg SQ Q12H Discharge Medication List Apixaban [Eliquis] 5 mg PO BID@0700,1900 09/18/19 [History] Ascorbic Acid [Vitamin C] 500 mg PO DAILY 09/18/19 [History] Atorvastatin [Lipitor] 10 mg PO HS 09/18/19 [History] Cholecalciferol [Vitamin D3 (25 Mcg = 1000 Iu)] 25 mcg PO DAILY 09/18/19 [History] Famotidine [Pepcid] 20 mg PO BID 09/18/19 [History] Furosemide [Lasix] 40 mg PO DAILY 09/18/19 [History] Vitamin E 1,000 unit PO DAILY 09/18/19 [History] Acetaminophen Tab [Tylenol] 650 mg PO Q6HR PRN tab 09/21/19 [Rx] Losartan [Cozaar] 50 mg PO DAILY tab 09/21/19 [Rx] carvediloL [Coreg*] 12.5 mg PO BID-W/MEALS tab 09/21/19 [Rx] Docusate Sodium [Dok] 250 mg PO DAILY PRN 02/07/21 [History] Multivitamins, Thera [Multivitamin (formulary)] 1 tab PO DAILY 02/07/21 [History] Follow up Appointment(s)/Referral(s): Madhav Poe MD [STAFF PHYSICIAN] - 1 Week Activity/Diet/Wound Care/Special Instructions: No lifting over 10 pounds You may shower. No soaking or tub baths for 2 weeks Very light activity until you are reevaluated at your follow up appointment with your surgeon Diet regular Discharge Disposition: HOME SELF-CARE
[2021-02-18 12:51] VITALS: BP 124/77; PULSE 92; RESP 18; TEMP 98.3
--- NOTE | 2021-02-18 12:54 | CDI ---
Documentation Clarification Form Date: 02/12/2021 11:20:00 AM From: Jesi Rosales RN CCDS Admit Date: 02/11/2021 03:10:00 PM Patient Name: Nette Swan Visit Number: [id number] Discharge Date: ATTENTION: The Clinical Documentation Specialists (CDI) and [facility] Coding Staff appreciate your assistance in clarifying documentation. Please respond to the clarification below the line at the bottom and electronically sign. The CDI & [facility] Coding staff will review the response and follow-up if needed. Please note: Queries are made part of the Legal Health Record. If you have any questions, please contact the author of this message via ITS. Dr. Darrius Gomez Your patient has the documented diagnosis of unspecified CHF 02/10, H&P. Additional information regarding the acuity of CHF is requested. History/Risk Factors: 85-year-old female presents to [facility] for elective cholecystectomy. Medical history: Atrial Fib and HTN. 02/10 Medicine consult. Clinical Indicators: VS/Pulse OX: B/P 156/73, HR 61, Temp 97.7 Temporal, RR 16, SpO2 99% ra Consult Medicine 02/10: Recent hospital stay for choledocholithiasis and diastolic heart failure. Treatment: 02/11 - current Lasix 40mg po daily, 02/11 current Coreg 12.5mg po bid with meals. In your professional opinion, can you please clarify the acuity of CHF if known? [ ] Chronic Diastolic Heart Failure (preserved EF) [ ] Other, please specify [ ] Unable to determine (Template Last Revised: May 2020) MTDD
--- NOTE | 2021-02-18 12:56 | CDI ---
Documentation Clarification Form Date: 02/12/2021 11:40:35 AM From: Jesi Rosales RN CCDS Admit Date: 02/11/2021 03:10:00 PM Patient Name: Nette Swan Visit Number: [id number] Discharge Date: ATTENTION: The Clinical Documentation Specialists (CDI) and [facility] Coding Staff appreciate your assistance in clarifying documentation. Please respond to the clarification below the line at the bottom and electronically sign. The CDI & [facility] Coding staff will review the response and follow-up if needed. Please note: Queries are made part of the Legal Health Record. If you have any questions, please contact the author of this message via ITS. Dr. Darrius Gomez There is documentation of Cellulitis of the legs,02/10, Medicine consult. Additional clarification is requested. History/Risk Factors: 85-year-old female presents to [facility] for elective cholecystectomy. Medical history: Recent hospital stay for choledocholithiasis and diastolic heart failure, cellulitis of the legs. Atrial Fib and HTN. 02/10, Medicine consult. Clinical Indicators: Surgery Note 02/11 Add IV Zosyn due to patients leukocytosis. Medicine progress note 02/12 85-year-old female status post open cholecystectomy. Continues on IV Zosyn. Nursing Integumentary Assessment 02/10 to 02/12 Within Normal Limits. Treatment: 02/11 to current Zosyn 3.375gm IVPB Q8H. Can you please clarify Cellulitis of the legs? [ ] History of Cellulitis no treatment [ ] Cellulitis this admission with treatment (specify treatment) [ ] Other, please specify [ ] Unable to determine (Template Last Revised: June 2020) MTDD
--- NOTE | 2021-02-26 08:13 | DS ---
DISCHARGE SUMMARY ADDENDUM TO DISCHARGE SUMMARY: Chronic diastolic heart failure. Cellulitis of her lower extremities, chronic. MMODL / IJN: [id number] /
== END 2021-02-18 15:05 | DRG 415 ==
LOC: OR 08:23 → 5NMEDONC 11:53 → OR 02-11 15:10
PROVIDERS: ADMIT Surgery; ATTEND Surgery
PROC: 0FJ44ZZ Inspection of Gallbladder, Percutaneous Endoscopic Approach (ICD-10-PCS; 2021-02-10)
PROC: 0D9670Z Drainage of Stomach with Drainage Device, Via Natural or Artificial Opening (ICD-10-PCS; 2021-02-10)
PROC: 0FT40ZZ Resection of Gallbladder, Open Approach (ICD-10-PCS; principal; 2021-02-10 10:15)
DX: K80.10 Calculus of gallbladder with chronic cholecystitis without obstruction (principal); I50.32 Chronic diastolic (congestive) heart failure; K56.7 Ileus, unspecified; L03.115 Cellulitis of right lower limb; L03.116 Cellulitis of left lower limb; N30.20 Other chronic cystitis without hematuria; E78.5 Hyperlipidemia, unspecified; E87.6 Hypokalemia; F03.90 Unspecified dementia, unspecified severity, without behavioral disturbance, psychotic disturbance, mood disturbance, and anxiety; H91.90 Unspecified hearing loss, unspecified ear; I11.0 Hypertensive heart disease with heart failure; I48.91 Unspecified atrial fibrillation; J44.9 Chronic obstructive pulmonary disease, unspecified; K21.9 Gastro-esophageal reflux disease without esophagitis; K43.2 Incisional hernia without obstruction or gangrene; R33.9 Retention of urine, unspecified; D72.829 Elevated white blood cell count, unspecified; Z20.822 Contact with and (suspected) exposure to COVID-19; Z79.01 Long term (current) use of anticoagulants; Z79.899 Other long term (current) drug therapy; Z80.3 Family history of malignant neoplasm of breast; Z82.3 Family history of stroke; Z85.828 Personal history of other malignant neoplasm of skin; Z87.891 Personal history of nicotine dependence; Z53.31 Laparoscopic surgical procedure converted to open procedure
CPT/HCPCS: 80048; 80053; 82271; 83735; 84100; 84132; 85025; 87635; 88304

== ENCOUNTER 2021-02-25 11:42 | Inpatient (IN) | payer MEDICARE, OTHER ==
[2021-02-25] MEDS ORDERED: PANTOPRAZOLE 40 MG/10 ML VIAL IVP STA (11:58)
[2021-02-25 12:21] LABS: INR 1.2 (<1.2); Partial Thromboplastin Time 22.9 sec (22.0-30.0); Prothrombin Time 12.1 sec (9.0-12.0)
[2021-02-25 12:22] LABS: Albumin 3.5 g/dL (3.5-5.0); Calcium 9.8 mg/dL (8.4-10.2); Potassium 3.8 mmol/L (3.5-5.1); Total Protein 6.7 g/dL (6.3-8.2)
[2021-02-25] MEDS ORDERED: MORPHINE SULFATE 2 MG/ML SYRINGE IVP STA (12:26)
[2021-02-25] MEDS ORDERED: ONDANSETRON 4 MG/2 ML VIAL IVP STA (12:26)
[2021-02-25] MEDS ORDERED: SODIUM CHLORIDE 0.9% 1,000 ML IV STA (12:28)
--- NOTE | 2021-02-25 12:31 | ED ---
General Adult HPI - General Chief complaint: Abdominal Pain Stated complaint: abd pain Time Seen by Provider: 02/25/21 11:58 Source: patient, family, EMS, RN notes reviewed Mode of arrival: EMS Limitations: physical limitation - History of Present Illness Initial comments: Patient is a pleasant 85-year-old female presenting to the emergency Department with abdominal discomfort and vomiting. Onset of symptoms just a few days ago. Patient did have gallbladder surgery done just 2 weeks ago. Patient has had decreased oral intake. Patient has been vomiting dark berumen color. Patient has abdominal discomfort radiating to the back as well as abdominal distention. Patient does have history of previous abdominal hernia however it seems more distended than normal. - Related Data Home Medications Medication Instructions Recorded Confirmed Apixaban [Eliquis] 5 mg PO BID@0700,1900 09/18/19 02/07/21 Ascorbic Acid [Vitamin C] 500 mg PO DAILY 09/18/19 02/10/21 Atorvastatin [Lipitor] 10 mg PO HS 09/18/19 02/10/21 Cholecalciferol [Vitamin D3 (25 25 mcg PO DAILY 09/18/19 02/10/21 Mcg = 1000 Iu)] Famotidine [Pepcid] 20 mg PO BID 09/18/19 02/10/21 Furosemide [Lasix] 40 mg PO DAILY 09/18/19 02/10/21 Vitamin E 1,000 unit PO DAILY 09/18/19 02/07/21 Docusate Sodium [Dok] 250 mg PO DAILY PRN 02/07/21 02/07/21 Multivitamins, Thera [Multivitamin 1 tab PO DAILY 02/07/21 02/07/21 (formulary)] Previous Rx's Medication Instructions Recorded Acetaminophen Tab [Tylenol] 650 mg PO Q6HR PRN tab 09/21/19 Losartan [Cozaar] 50 mg PO DAILY tab 09/21/19 carvediloL [Coreg*] 12.5 mg PO BID-W/MEALS tab 09/21/19 Allergies Allergy/AdvReac Type Severity Reaction Status Date / Time hydrocodone [From Vicodin] AdvReac Intermediate Unknown Verified 02/25/21 11:47 Review of Systems ROS Statement: Those systems with pertinent positive or pertinent negative responses have been documented in the HPI. ROS Other: All systems not noted in ROS Statement are negative. Constitutional: Denies: fever Eyes: Denies: eye pain ENT: Denies: ear pain Respiratory: Denies: cough Cardiovascular: Denies: chest pain Endocrine: Denies: fatigue Gastrointestinal: Reports: as per HPI, abdominal pain, nausea, vomiting Genitourinary: Denies: dysuria Musculoskeletal: Denies: back pain Skin: Denies: rash Neurological: Denies: weakness Past Medical History Past Medical History: Atrial Fibrillation, Cancer, Deep Vein Thrombosis (DVT), GERD/Reflux, Hearing Disorder / Deafness, Hyperlipidemia, Hypertension Additional Past Medical History / Comment(s): Hx multiple abdominal hernias, current umb hernia. Hx skin cancer. Hearing aids broken. Edema BLE, varicose veins (hx cellulitis). Gallbladder full of stones currently. History of Any Multi-Drug Resistant Organisms: None Reported Past Surgical History: Section, Hernia Repair Additional Past Surgical History / Comment(s): Cancer exc from skin of breast; "blood clot removal" from leg. "Poss hysterectomy," per son. ASD repair 2012. Past Anesthesia/Blood Transfusion Reactions: No Reported Reaction Past Psychological History: No Psychological Hx Reported Smoking Status: Former smoker Past Alcohol Use History: None Reported Past Drug Use History: None Reported - Past Family History Mother Family Medical History: CVA/TIA Additional Family Medical History / Comment(s): Pt. states mother at 52 from a stroke Father Additional Family Medical History / Comment(s): Father at age 57 from a motor vehicle accident. Sister(s) Family Medical History: Cancer Additional Family Medical History / Comment(s): The patient has 2 sisters, 1 sister has from breast cancer and one is alive with no major medical problems. Patient does not have any brothers. Patient has 4 children with no major medical problems. Son(s) Family Medical History: Deep Vein Thrombosis (DVT) General Exam Limitations: physical limitation General appearance: alert, in no apparent distress Head exam: Present: normocephalic Eye exam: Present: normal appearance Neck exam: Present: normal inspection Respiratory exam: Present: normal lung sounds bilaterally Cardiovascular Exam: Present: regular rate, normal rhythm GI/Abdominal exam: Present: soft, distended, tenderness, hernia (Supraumbilical hernia that is distended, limited ability to reduce secondary to patient disco mfort). Absent: pulsatile mass Extremities exam: Present: normal inspection. Absent: pedal edema, calf tenderness Neurological exam: Present: alert Psychiatric exam: Present: normal affect, normal mood Skin exam: Present: normal color Course Vital Signs 02/25/21 02/25/21 11:48 13:30 Temperature 99.2 F Pulse Rate 103 H 89 Respiratory 18 18 Rate Blood Pressure 179/84 174/107 O2 Sat by Pulse 95 95 Oximetry Medical Decision Making - Medical Decision Making Patient reevaluated. Patient and family updated. Case was discussed with Dr. Poe who will admit his patient. He requests the appropriate medical consult be placed. Patient does see Dr. Camargo is a primary DrHyacinth Barnard will be placed as systems management consultant. Dr. Poe does agree with NG tube. He states hernia is an incisional hernia that he is aware of and had difficulty reducing previously. He would also like antibiotics. Attempt at reduction was made during initial evaluation however patient did not tolerate it at that time. - Lab Data Result diagrams: 02/25/21 12:00 02/25/21 12:00 Lab Results 02/25/21 02/25/21 02/25/21 Range/Units 12:00 12:00 12:00 WBC 15.6 H (3.8-10.6) k/uL RBC 4.73 (3.80-5.40) m/uL Hgb 14.4 (11.4-16.0) gm/dL Hct 44.1 (34.0-46.0) % MCV 93.3 (80.0-100.0) fL MCH 30.4 (25.0-35.0) pg MCHC 32.6 (31.0-37.0) g/dL RDW 12.9 (11.5-15.5) % Plt Count 569 H (150-450) k/uL MPV 8.3 Neutrophils % 90 % Lymphocytes % 7 % Monocytes % 3 % Eosinophils % 0 % Basophils % 0 % Neutrophils # 14.0 H (1.3-7.7) k/uL Lymphocytes # 1.0 (1.0-4.8) k/uL Monocytes # 0.5 (0-1.0) k/uL Eosinophils # 0.0 (0-0.7) k/uL Basophils # 0.0 (0-0.2) k/uL PT 12.1 H (9.0-12.0) sec INR 1.2 H (<1.2) APTT 22.9 (22.0-30.0) sec Sodium 139 (137-145) mmol/L Potassium 3.8 (3.5-5.1) mmol/L Chloride 93 L (98-107) mmol/L Carbon Dioxide 36 H (22-30) mmol/L Anion Gap 10 mmol/L BUN 26 H (7-17) mg/dL Creatinine 0.82 (0.52-1.04) mg/dL Est GFR (CKD-EPI)AfAm 76 (>60 ml/min/1.73 sqM) Est GFR (CKD-EPI)NonAf 66 (>60 ml/min/1.73 sqM) Glucose 169 H (74-99) mg/dL Calcium 9.8 (8.4-10.2) mg/dL Total Bilirubin 1.0 (0.2-1.3) mg/dL AST 25 (14-36) U/L ALT 18 (4-34) U/L Alkaline Phosphatase 85 (38-126) U/L Total Protein 6.7 (6.3-8.2) g/dL Albumin 3.5 (3.5-5.0) g/dL Amylase 97 (30-110) U/L Lipase 481 H (23-300) U/L - Radiology Data Radiology results: report reviewed (ET scan of abdomen and pelvis shows massively distended stomach and dilation of esophagus with fluid secondary to anterior abdominal wall hernia resulting in severe obstruction. Post surgical changes. Calcifications right upper quadrant, possible gallstones and common bile duct or gallbladder sanjay), image reviewed (KB shows questionable gastritis versus bowel obstruction) Disposition Clinical Impression: Bowel obstruction Disposition: ADMITTED IP TO THIS [facility] Condition: Serious Is patient prescribed a controlled substance at d/c from ED?: No Referrals: Srinath Camargo MD [Primary Care Provider] - 1-2 days Decision Time: 13:39
--- NOTE | 2021-02-25 12:41 | XR ---
KUB HISTORY: Abdominal pain with nausea and vomiting Frontal KUB submitted, no comparisons There is an air-fluid level within the stomach, air fluid level is present within the abdomen in the right lower quadrant. No evident pneumoperitoneum. Surgical clips are present in the right abdomen. D egenerative disc changes are present in the visualized spine, there is a spinal curvature. There may be some basilar atelectatic changes. IMPRESSION: Findings may represent gastroenteritis, if bowel obstruction is suspected clinically then alternate imaging may be of benefit. Postop changes.
[2021-02-25 12:58] LABS: Basophils % (A) 0 %; Eosinophils % (A) 0 %; HCT 44.1 % (34.0-46.0); HGB 14.4 gm/dL (11.4-16.0); Lymphocytes % (A) 7 %; MCH 30.4 pg (25.0-35.0); MCHC 32.6 g/dL (31.0-37.0); MCV 93.3 fL (80.0-100.0); Mean Platelet Volume 8.3; Monocytes # (A) 0.5 k/uL (0-1.0); Monocytes % (A) 3 %; Neutrophils % (A) 90 %; Platelet Count 569 k/uL (150-450); RBC 4.73 m/uL (3.80-5.40); RDW 12.9 % (11.5-15.5); WBC 15.6 k/uL (3.8-10.6)
--- NOTE | 2021-02-25 13:21 | CT ---
EXAMINATION TYPE: CT abdomen pelvis w con DATE OF EXAM: 02/25/2021 COMPARISON: None HISTORY: Pain and distention post open marcelo CT DLP: 1888.2 mGycm Automated exposure control for dose reduction was used. CONTRAST: CT scan of the abdomen pelvis is performed with IV Contrast, patient injected with 100 mL of Isovue 3 00. FINDINGS- Bilateral pleural effusion and basilar consolidation. Surgical clip involving the right breast noted. Calcification of the aortic root noted. The stomach is massively distended resulting in esophageal dilation abnormal fluid extending into the esophagus. Patient was readmitted risk for aspiration. There appears to be a herniation remain massi vely distended stomach along the anterior soft tissue hernia. Could not exclude air in the wall of th e stomach and emphysematous gastritis correlate clinically. There is abnormal soft tissue emphysema in attenuation involving the right abdomen which could relate d to patient's recent colonoscopy. Additional bowel loops are contained within the large anterior abd ominal wall hernia. Suspect there is a degree of obstruction related to the gastric hernia and imping ement of the gastric antrum and proximal duodenum. Multiple gallstones are seen. Adrenal glands normal morphology. Pancreas normal. Atherosclerotic carter ge aorta. Hypertrophic and degenerative changes of the spine. Diverticulosis of the colon. Second anterior abdo dior wall hernia seen in the lower abdomen to the left containing multiple bile lakes. Hypodensity i nvolving the lower pole the left kidney most likely in the basis of exophytic renal cyst. IMPRESSION- 1. Massively distended stomach and dilation of the esophagus with fluid extending in the esophagus wh ich appears to be secondary to a anterior abdominal wall hernia which is resulting in compression of the gastric antrum and proximal duodenum as they exit the hernia sac. This results in severe obstruct ion. Patient felt at risk for aspiration. As noted above regarding anteriorly likely within the stoma ch although emphysematous gastritis cannot be excluded. 2. Postsurgical changes suggestive of previous cholecystectomy however appear to be multiple calcific ations in the right upper quadrant which could be related to gallstones within the common bile duct o r gallbladder fossa. Other nonspecific calcifications in the differential diagnosis. 3. Bilateral infiltrate and pleural effusions. 4. There is a second large mouth hernia sac extending from the lower abdomen laterally to the left co ntaining a large number of bowel loops.
[2021-02-25] MEDS ORDERED: AMPICILLIN-SULBACTAM 1.5 GM in SODIUM CHLORIDE 0.9% 50 ML IVPB STA (13:41)
[2021-02-25] MEDS ORDERED: ONDANSETRON 4 MG/2 ML VIAL IVP PRN (13:42)
[2021-02-25] MEDS ORDERED: NALOXONE 0.4 MG/ML 1 ML VIAL IV PRN (13:42)
[2021-02-25] MEDS ORDERED: MORPHINE SULFATE 4 MG/ML SYRINGE IV PRN (13:42)
[2021-02-25] MEDS: SODIUM CHLORIDE 0.9% 1,000 ML IV SCH ×2 (14:43→18:38)
--- NOTE | 2021-02-25 15:21 | P.GSHP ---
History of Present Illness H&P Date: 02/25/21 CHIEF COMPLAINT: Abdominal pain HISTORY OF PRESENT ILLNESS: This 85-year-old female who presented to the hospital with complaints of abdominal pain 4 days. Patient has a known history of large abdominal wall hernias. She recently had a open cholecystectomy about 2 weeks ago. Surgery had to be opened due to the abdominal hernias and at that time she also had developed an ileus postoperatively. Patient was discharged to [facility] for rehab. Patient over the last few days developed abdominal distention and pain. She reports that she had eaten choi prior to symptoms starting. Her last bowel movement was 2 days ago. She has been having flatus. Patient has been vomiting grayish material. Patient had evidence of small bowel obstruction noted on CAT scan. NG tube has been inserted. Patient had 3 L of grayish output and has almost filled another canister since NG tube has been placed. Patient reports improvement in her pain and abdominal distention since NG tube placed. She is also on Eliquis for her atrial fibrillation. She has been mildly tachycardic with leukocytosis on admission. PAST MEDICAL HISTORY: Atrial Fibrillation, Cancer, Deep Vein Thrombosis (DVT), GERD/Reflux, Hearing Disorder / Deafness, Hyperlipidemia, Hypertension, multiple abdominal hernias, u mbilical hernia, PAST SURGICAL HISTORY: Open cholecystectomy, , hernia repair MEDICATIONS: See list. ALLERGIES: See list. SOCIAL HISTORY: No illicit drug use. REVIEW OF SYSTEMS: CONSTITUTIONAL: Denies fever or chills. HEENT: Denies blurred vision, vision changes, or eye pain. Denies hemoptysis CARDIOVASCULAR: Denies chest pain or pressure. RESPIRATORY: No shortness of breath. GASTROINTESTINAL: See HPI for pertinent findings HEMATOLOGIC: Denies bleeding disorders. GENITOURINARY: Denies any blood in urine or increased urinary frequency. SKIN: Denies pruitis. Denies rash. PHYSICAL EXAM: VITAL SIGNS: Reviewed GENERAL: Well-developed in no acute distress. HEENT: No sclera icterus. Extraocular movements grossly intact. Moist buccal mucosa. Head is atraumatic, normocephalic. No nasal drainage. ABDOMEN: Soft. Mildly distended. nontender at this time NEUROLOGIC: Alert and oriented. Cranial nerves II through XII grossly intact. LABORATORY DATA: WBC 15.6 Hgb 14.4 platelets 569 INR 1.2 sodium 139 potassium 3.8 creatinine 0.82 LFTs normal Lipase 481 IMAGING: Computed tomography scan abdomen and pelvis showing massively distended stomach and dilation of the esophagus with fluid extending in the esophagus which appears to be secondary to a and anterior abdominal wall hernia which is resulting in compression of the gastric antrum and proximal duodenum as they exit the hernia sac. This results in severe obstruction. Patient felt at risk for aspiration. As noted above regarding anterior likely within the stomach although emphysematous gastritis cannot be excluded. Postsurgical changes suggestive of previous cholecystectomy however appeared to be multiple calcifications in the right upper quadrant which could be related to gallstones within the common bile duct or gallbladder fossa. Other nonspecific calcifications in the differential diagnosis. Bilateral infiltrate and pleural effusions. There is a second large mouth hernia sac extending from lower abdomen laterally to the left containing a large number of bowel loops. ASSESSMENT: 1. Small bowel obstruction 2. Massively distended stomach and dilation of the esophagus secondary to an terior abdominal wall hernia which compressing the gastric antrum and proximal duodenal causing obstruction. 3. Second large mouth hernia sac extending from the lower abdomen laterally containing large number of bowel loops. 4. Recent open cholecystectomy PLAN: -Patient scheduled for exploratory laparotomy tomorrow, 02/26/[address] Poe -Continue NG tube for decompression -Keep patient nothing by mouth -Continue IV fluids -Continue IV antibiotics -Continue pain medication as needed -Continue antiemetics -Consult medicine service for medical management -Hold Nadia Physician [employer] Director note has been reviewed by physician. Signing provider agrees with the documented findings, assessment, and plan of care. Past Medical History Past Medical History: Atrial Fibrillation, Cancer, Deep Vein Thrombosis (DVT), GERD/Reflux, Hearing Disorder / Deafness, Hyperlipidemia, Hypertension Additional Past Medical History / Comment(s): Hx multiple abdominal hernias, current umb hernia. Hx skin cancer. Hearing aids broken. Edema BLE, varicose veins (hx cellulitis). Gallbladder full of stones currently. History of Any Multi-Drug Resistant Organisms: None Reported Past Surgical History: Section, Hernia Repair Additional Past Surgical History / Comment(s): Cancer exc from skin of breast; "blood clot removal" from leg. "Poss hysterectomy," per son. ASD repair 2012. Past Anesthesia/Blood Transfusion Reactions: No Reported Reaction Past Psychological History: No Psychological Hx Reported Smoking Status: Former smoker Past Alcohol Use History: None Reported Past Drug Use History: None Reported - Past Family History Mother Family Medical History: CVA/TIA Additional Family Medical History / Comment(s): Pt. states mother at 52 from a stroke Father Additional Family Medical History / Comment(s): Father at age 57 from a motor vehicle accident. Sister(s) Family Medical History: Cancer Additional Family Medical History / Comment(s): The patient has 2 sisters, 1 sister has from breast cancer and one is alive with no major medical problems. Patient does not have any brothers. Patient has 4 children with no major medical problems. Son(s) Family Medical History: Deep Vein Thrombosis (DVT) Medications and Allergies Home Medications Medication Instructions Recorded Confirmed Type Apixaban [Eliquis] 5 mg PO BID 09/18/19 02/25/21 History Ascorbic Acid [Vitamin C] 500 mg PO HS 09/18/19 02/25/21 History Atorvastatin [Lipitor] 10 mg PO HS@199909/18/19 02/25/21 History Cholecalciferol [Vitamin D3 (25 25 mcg PO HS 09/18/19 02/25/21 History Mcg = 1000 Iu)] Famotidine [Pepcid] 20 mg PO BID 09/18/19 02/25/21 History Furosemide [Lasix] 40 mg PO DAILY 09/18/19 02/25/21 History Losartan [Cozaar] 50 mg PO DAILY tab 09/21/19 02/25/21 Rx Docusate Sodium [Dok] 200 mg PO DAILY PRN 02/07/21 02/25/21 History Multivitamins, Thera [Multivitamin 1 tab PO DAILY 02/07/21 02/25/21 History (formulary)] Acetaminophen Tab [Tylenol] 650 mg PO Q6HR PRN 02/25/21 02/25/21 History Omeprazole 20 mg PO DAILY 02/25/21 02/25/21 History Promethazine HCl 12.5 mg PO Q6H PRN 02/25/21 02/25/21 History Vitamin E (Dl,Tocopheryl Acet) 400 unit PO DAILY 02/25/21 02/25/21 History [Vitamin E (400 Iu = 180 mg)] carvediloL [Coreg*] 12.5 mg PO BID 02/25/21 02/25/21 History Allergies Allergy/AdvReac Type Severity Reaction Status Date / Time hydrocodone [From Vicodin] AdvReac Intermediate Unknown Verified 02/25/21 14:12 Surgical - Exam Vital Signs Temp Pulse Resp BP Pulse Ox 99.2 F 103 H 18 179/84 95 02/25/21 11:48 02/25/21 11:48 02/25/21 11:48 02/25/21 11:48 02/25/21 11:48 Results - Labs 02/25/21 12:00 02/25/21 12:00 Abnormal Lab Results - Last 24 Hours (Table) 02/25/21 02/25/21 02/25/21 Range/Units 12:00 12:00 12:00 WBC 15.6 H (3.8-10.6) k/uL Plt Count 569 H (150-450) k/uL Neutrophils # 14.0 H (1.3-7.7) k/uL PT 12.1 H (9.0-12.0) sec INR 1.2 H (<1.2) Chloride 93 L (98-107) mmol/L Carbon Dioxide 36 H (22-30) mmol/L BUN 26 H (7-17) mg/dL Glucose 169 H (74-99) mg/dL Lipase 481 H (23-300) U/L Diabetes panel 02/25/21 Range/Units 12:00 Sodium 139 (137-145) mmol/L Potassium 3.8 (3.5-5.1) mmol/L Chloride 93 L (98-107) mmol/L Carbon Dioxide 36 H (22-30) mmol/L BUN 26 H (7-17) mg/dL Creatinine 0.82 (0.52-1.04) mg/dL Glucose 169 H (74-99) mg/dL Calcium 9.8 (8.4-10.2) mg/dL AST 25 (14-36) U/L ALT 18 (4-34) U/L Alkaline Phosphatase 85 (38-126) U/L Total Protein 6.7 (6.3-8.2) g/dL Albumin 3.5 (3.5-5.0) g/dL Calcium panel 02/25/21 Range/Units 12:00 Calcium 9.8 (8.4-10.2) mg/dL Albumin 3.5 (3.5-5.0) g/dL Pituitary panel 02/25/21 Range/Units 12:00 Sodium 139 (137-145) mmol/L Potassium 3.8 (3.5-5.1) mmol/L Chloride 93 L (98-107) mmol/L Carbon Dioxide 36 H (22-30) mmol/L BUN 26 H (7-17) mg/dL Creatinine 0.82 (0.52-1.04) mg/dL Glucose 169 H (74-99) mg/dL Calcium 9.8 (8.4-10.2) mg/dL Adrenal panel 02/25/21 Range/Units 12:00 Sodium 139 (137-145) mmol/L Potassium 3.8 (3.5-5.1) mmol/L Chloride 93 L (98-107) mmol/L Carbon Dioxide 36 H (22-30) mmol/L BUN 26 H (7-17) mg/dL Creatinine 0.82 (0.52-1.04) mg/dL Glucose 169 H (74-99) mg/dL Calcium 9.8 (8.4-10.2) mg/dL Total Bilirubin 1.0 (0.2-1.3) mg/dL AST 25 (14-36) U/L ALT 18 (4-34) U/L Alkaline Phosphatase 85 (38-126) U/L Total Protein 6.7 (6.3-8.2) g/dL Albumin 3.5 (3.5-5.0) g/dL
[2021-02-25 15:53] LABS: Appearance,Urine Clear (Clear); Bilirubin,Urine 1+ (Negative); Blood,Urine Negative (Negative); Color,Urine Dark Yellow; Glucose,Urine (UA) Negative (Negative); Ketones,Urine 1+ (Negative); Leukocyte Esterase,Urine Negative (Negative); Mucus,Urine Moderate /hpf; Nitrite,Urine Negative (Negative); PH, Urine 5.5 (5.0-8.0); Protein,Urine 1+ (Negative); RBC,Urine 29 /hpf (0-5); Squamous Epithelial Cell,Urine 2 /hpf (0-4); WBC,Urine 1 /hpf (0-5)
[2021-02-25 16:03] LABS: Specific Gravity,Urine >1.050 (1.001-1.035)
[2021-02-25] MEDS ORDERED: HEPARIN SOD,PORK IN 0.45% NACL 25,000 UNIT in 0.45% NACL 1 250ML.BAG IV SCH (17:15)
[2021-02-25] MEDS ORDERED: HEPARIN SODIUM 1,000 UN/ML (10ML VL) IV PRN (17:15)
[2021-02-25 17:55] LABS: Basophils % (A) 0 %; Eosinophils % (A) 0 %; HCT 40.7 % (34.0-46.0); HGB 13.1 gm/dL (11.4-16.0); Lymphocytes % (A) 7 %; MCH 30.3 pg (25.0-35.0); MCHC 32.2 g/dL (31.0-37.0); MCV 94.4 fL (80.0-100.0); Mean Platelet Volume 7.7; Monocytes # (A) 0.6 k/uL (0-1.0); Monocytes % (A) 4 %; Neutrophils # (A) 12.2 k/uL (1.3-7.7); Neutrophils % (A) 88 %; Platelet Count 466 k/uL (150-450); RBC 4.32 m/uL (3.80-5.40); RDW 12.7 % (11.5-15.5); WBC 13.9 k/uL (3.8-10.6)
[2021-02-25 18:16] LABS: INR 1.2 (<1.2); Partial Thromboplastin Time 23.2 sec (22.0-30.0); Prothrombin Time 12.1 sec (9.0-12.0)
--- NOTE | 2021-02-25 18:53 | XR ---
EXAMINATION TYPE: XR chest 1V portable DATE OF EXAM: 02/25/2021 CLINICAL HISTORY: chf. TECHNIQUE: Portable frontal view of the chest. COMPARISON: 07/29/2012 FINDINGS: Cardiomegaly. Increased interstitial markings. Small bilateral pleural effusions and left b asilar airspace opacities. No pneumothorax seen. Degenerative changes of the shoulders. Enteric tube with nonvisualization of the distal tip, with side-port below the level of the GE junction. Surgical clips over the right axilla and breast. IMPRESSION: 1. Enteric tube with nonvisualization of the distal tip, with side-port below the level of the GE ryan ction. 2. Cardiomegaly, interstitial edema, and small bilateral pleural effusions. Findings may represent CH F.
[2021-02-25] MEDS: AMPICILLIN-SULBACTAM 1.5 GM in SODIUM CHLORIDE 0.9% 50 ML IVPB SCH (20:31)
--- NOTE | 2021-02-25 21:27 | CONS ---
CONSULTATION DATE OF SERVICE: 02/25/2021 REASON FOR CONSULTATION: Advice regarding atrial fibrillation and other medical issues requested by Dr. Poe. HISTORY OF PRESENT ILLNESS: This 85-year-old woman with a past history of atrial fibrillation, history of DVT, GERD, hypertension, hyperlipidemia, being followed by Dr. Camargo in the outpatient setting recently had a cholecystectomy by Dr. Poe. The patient is complaining of abdominal distention, vomiting. The patient had surgery about 2 weeks ago. The patient had diffuse abdominal distention and a CT scan of the abdomen and pelvis was done in the ER today which I reviewed personally which showed massively distended stomach and dilatation of the esophagus with extensive fluid secondary to anterior abdominal hernia and compression of the gastric antrum and proximal duodenum indicating severe obstruction and postsurgical changes suggestive of cholecystectomy and bilateral infiltrates and pleural effusion and second large hernia extending in the lower abdomen also noted. The patient was admitted for further evaluation and treatment. There is no history of fever, rigors. No history of headache, loss of consciousness, seizures. PAST MEDICAL HISTORY: Atrial fibrillation, cholecystectomy, DVT, GERD. MEDICATIONS: Home medications are: Coreg, vitamin, promethazine, multivitamin, losartan, Lasix, Pepcid, DOK, vitamin D3, Lipitor, vitamin C, Eliquis. Doses and other medication also reviewed. ALLERGIES: VICODIN. FAMILY HISTORY: History of CVA/TIA. SOCIAL HISTORY: Previous history of smoking. No history of current smoking or alcohol intake. REVIEW OF SYSTEMS: ENT: Diminished vision. Diminished hearing. CARDIOVASCULAR as mentioned earlier. RESPIRATORY: As mentioned earlier. GI: As mentioned earlier. : No dysuria. NERVOUS SYSTEM: No numbness or weakness. ALLERGY/IMMUNOLOGY: No asthma or hayfever. MUSCULOSKELETAL: As mentioned earlier. HEMATOLOGY/ONCOLOGY: As mentioned earlier. ENDOCRINE: No history of diabetes or hypothyroidism. CONSTITUTIONAL: As mentioned. DERMATOLOGY: Negative. RHEUMATOLOGY: Negative. PSYCHIATRIC: As mentioned earlier. PHYSICAL EXAMINATION: Patient is alert, oriented x3. Pulse is 120, regular. Blood pressure 169/63, respiration 18, temperature 97.9, pulse ox 93 percent on room air. HEENT: Conjunctivae normal. Oral mucosa moist. NECK is no jugular venous distention. No carotid bruit. No lymph node enlargement. Diminished hearing and diminished vision. CARDIOVASCULAR system: S1, S2 irregular. Ejection systolic murmur present. RESPIRATIONS: Breath sounds diminished in the basis. A few scattered rhonchi. ABDOMEN: Soft, mild diffuse distention present. Significant hernia at least 2 noted on the right anterior abdominal wall and left anterior abdominal wall. Nontender. No guarding. No rigidity. Bowel sounds diminished. No ascites. LEGS: No edema, no swelling. NERVOUS SYSTEM: Higher functions as mentioned earlier. Moves all four limbs. No focal motor or sensory deficits. LYMPHATICS: No lymph nodes palpable in the neck, axillae or groin. SKIN: No ulcer, no rash and no bleeding. JOINTS: No active deforming arthropathy. LABS: WBC 15.6 and sodium 130. Potassium 3.3, INR 1.2. Lactic acid is 2.8. EKG not available. ASSESSMENT: 1. Acute bowel obstruction possibly secondary from compression hernia with significant dilated stomach and duodenum status post NG tube and decompression. 2. History of recent cholecystectomy. 3. Multiple anterior wall abdominal hernias. 4. Increased WBC. 5. Increased BUN. 6. Increased random blood sugar. 7. Increased lactic acid. 8. Elevated lipase with normal amylase. 9. History of atrial fibrillation. 10.History of deep vein thrombosis. 11.History of gastroesophageal reflux disease. 12.History of hearing defect. 13.Hypertension. 14.Hyperlipidemia. 15.History of multiple abdominal hernias. 16.History of skin cancer. 17.History of section. 18.History of ASD repair in 2012. 19.Remote history of nicotine dependence. 20.Obesity with body mass index of 34.9. 21.FULL CODE. RECOMMENDATIONS AND DISCUSSION: This 85-year-old woman who presented with multiple complex medical issues, we will monitor the patient closely, continue the current medications, management and symptomatic treatment. Otherwise, at this time, I would recommend proton pump inhibitors. Empiric antibiotics have been initiated. Obtain cultures. I would also recommend IV heparin drip for atrial fibrillation. The prognosis guarded because of multiple complex medical issues. We will follow the patient closely. Further recommendations to follow. Add IV heparin for atrial fibrillation and history of DVT also. Thank you Dr. Poe for letting us participate in the care of this patient. MMODL / IJN: [id number] /
[2021-02-26] MEDS: AMPICILLIN-SULBACTAM 1.5 GM in SODIUM CHLORIDE 0.9% 50 ML IVPB SCH ×4 (02:59→21:09)
[2021-02-26] MEDS: PANTOPRAZOLE 40 MG/10 ML VIAL IV SCH (08:01)
[2021-02-26 08:21] LABS: Basophils % (A) 0 %; Eosinophils # (A) 0.1 k/uL (0-0.7); Eosinophils % (A) 1 %; HCT 38.7 % (34.0-46.0); HGB 12.3 gm/dL (11.4-16.0); Lymphocytes # (A) 1.4 k/uL (1.0-4.8); Lymphocytes % (A) 11 %; MCHC 31.8 g/dL (31.0-37.0); MCV 94.3 fL (80.0-100.0); Mean Platelet Volume 8.2; Monocytes # (A) 0.5 k/uL (0-1.0); Monocytes % (A) 4 %; Neutrophils # (A) 10.5 k/uL (1.3-7.7); Neutrophils % (A) 83 %; Platelet Count 448 k/uL (150-450); RDW 12.8 % (11.5-15.5); WBC 12.6 k/uL (3.8-10.6)
[2021-02-26 08:37] LABS: INR 1.2 (<1.2); Partial Thromboplastin Time 73.7 sec (22.0-30.0)
[2021-02-26 08:40] LABS: ALT 14 U/L (4-34); African American GFR (CKD) >90 (>60 ml/min/1.73 sqM); Albumin 2.8 g/dL (3.5-5.0); Amylase 71 U/L (30-110); Anion Gap 6 mmol/L; Blood Urea Nitrogen 24 mg/dL (7-17); Calcium 8.7 mg/dL (8.4-10.2); Carbon Dioxide 38 mmol/L (22-30); Chloride 96 mmol/L (98-107); Globulin 2.9 g/dL; Glucose 99 mg/dL (74-99); Lipase 239 U/L (23-300); Non-African American GFR(CKD) 84 (>60 ml/min/1.73 sqM); Sodium 140 mmol/L (137-145); Total Bilirubin 0.9 mg/dL (0.2-1.3); Total Protein 5.7 g/dL (6.3-8.2)
[2021-02-26 08:47] LABS: AST 25 U/L (14-36); Potassium 3.4 mmol/L (3.5-5.1)
[2021-02-26 08:48] LABS: Alkaline Phosphatase 64 U/L (38-126)
[2021-02-26] MEDS ORDERED: DEXAMETHASONE SOD PHOSPHATE 4 MG/ML 1 ML VIAL IV ONE (10:28)
[2021-02-26] MEDS ORDERED: LIDOCAINE 1% (10MG/ML) FOR IV START INTRADERMA PRN (10:28)
[2021-02-26] MEDS ORDERED: ONDANSETRON 4 MG/2 ML VIAL IVP ONE (10:28)
[2021-02-26] MEDS ORDERED: LACTATED RINGERS 1,000 ML IV SCH (10:30)
--- NOTE | 2021-02-26 10:33 | P.CRDCN ---
History of Present Illness Consult date: 02/26/21 History of present illness: HISTORY OF PRESENT ILLNESS: This is a 85-year-old female with a past medical history significant for paroxysmal atrial fibrillation, DVT, hypertension, valvular heart disease, and ASD status post percutaneous repair 2012. Patient follows in the office with Dr. Pope. We have been asked to see the patient in consultation for atrial fibrillation. Patient examined at the bedside. The patient had an open cholecystectomy with Dr. Poe on 02/10/2021. Patient's postoperative course was complicated by an ileus. The patient was discharged to [facility] for rehab. Patient presented back to the hospital with abdominal pain and vomiting. Patient was found to have a small bowel obstruction and had an NG tube placed. She is scheduled for exploratory laparotomy today with Dr. Poe. The patient currently denies chest pain or pressure. She denies shortness of breath. She denies dizziness or lightheadedness. She denies palpitations. The patient takes Eliquis for her atrial fibrillation. She has been placed on IV heparin per internal medicine as her Eliquis is on hold. EKG not available at time of dictation. Chest xray cardiomegaly, interstitial edema, and small bilateral pleural effusions. Findings may represent CHF. Laboratory data: WBC 12.6. Hemoglobin 12.3. Platelet count 448. Sodium 140. Potassium 3.4. BUN 24. Creatinine 0.61. Lactic acid 2.4. Repeat 1.5. Current home cardiac medications include Coreg 12.5 mg twice a day, losartan 50 million times daily, Lasix 40 mrem daily, atorvastatin 10 mg daily, Eliquis 5 mg twice a day Most recent echocardiogram obtained in March 2020 revealed ejection fraction 55%. PFO closure device present. [id number] aortic regurgitation and mi ld aortic stenosis. Moderate mitral regurgitation. Moderate tricuspid regurgitation. REVIEW OF SYSTEMS: At the time of my exam: CONSTITUTIONAL: Denies fever or chills. HEENT: Denies blurred vision, vision changes, or eye pain. Denies hemoptysis CARDIOVASCULAR: Denies chest pain. Denies orthopnea. Denies PND. Denies palpitations RESPIRATORY: Denies shortness of breath. GASTROINTESTINAL: + abdominal pain. Denies nausea or vomiting. HEMATOLOGIC: Denies bleeding disorders. GENITOURINARY: Denies any blood in urine. SKIN: Denies pruitis. Denies rash. PHYSICAL EXAM: VITAL SIGNS: Reviewed. GENERAL: Well-developed in no acute distress. HEENT: Head is normocephalic. Pupils are equal, round. Sclerae anicteric. Mucous membranes of the mouth are moist. Neck supple. No JVD or thyromegaly LUNGS: Respirations even and unlabored. Lungs essentially clear to auscultation bilaterally. HEART: Regular rate and rhythm. S1 and S2 heard. Systolic and diastolic murmur noted. ABDOMEN: Soft. Distended. Nontender. NG tube present. EXTREMITIES: Normal range of motion. No clubbing or cyanosis. Peripheral pulses intact. Chronic lower extremity edema noted. NEUROLOGIC: Awake and alert. Oriented x 3. ASSESSMENT: Small bowel obstruction Recent open cholecystectomy Paroxysmal atrial fibrillation History of DVT status post arthrectomy Hypertension Valvular heart disease ASD status post percutaneous repair 2012 PLAN: Obtain baseline EKG Obtain 2D echo to assess cardiac structure and function Continue IV heparin. Resume Eliquis postoperatively when able to tolerate oral medications Patients current cardiac medications on hold secondary to SBO. Resume postoperatively when able to tolerate oral medications Begin telemetry monitoring If patients heart rate becomes uncontrolled, may add IV metoprolol if needed The patient appears euvolemic and has no complaints of angina. There are no absolute contraindications from a cardiac standpoint to undergo surgery Further recommendations pending patient course Nurse practitioner note has been reviewed by physician. Signing provider agrees with the documented findings, assessment, and plan of care. Past Medical History Past Medical History: Atrial Fibrillation, Cancer, Deep Vein Thrombosis (DVT), GERD/Reflux, Hearing Disorder / Deafness, Hyperlipidemia, Hypertension Additional Past Medical History / Comment(s): Hx multiple abdominal hernias, current umb hernia. Hx skin cancer. Hearing aids broken. Edema BLE, varicose veins (hx cellulitis). Gallbladder full of stones currently. History of Any Multi-Drug Resistant Organisms: None Reported Past Surgical History: Section, Cholecystectomy, Hernia Repair Additional Past Surgical History / Comment(s): Open Cholecystectomy on 02/10/21. Cancer exc from skin of breast; "blood clot removal" from leg. Past Anesthesia/Blood Transfusion Reactions: No Reported Reaction Past Psychological History: No Psychological Hx Reported Smoking Status: Former smoker Past Alcohol Use History: None Reported Additional Past Alcohol Use History / Comment(s): Was a lifelong nonsmoker, quit years ago. Past Drug Use History: None Reported - Past Family History Mother Family Medical History: CVA/TIA Additional Family Medical History / Comment(s): Pt. states mother at 52 from a stroke Father Additional Family Medical History / Comment(s): Father at age 57 from a motor vehicle accident. Sister(s) Family Medical History: Cancer Additional Family Medical History / Comment(s): The patient has 2 sisters, 1 sister has from breast cancer and one is alive with no major medical problems. Patient does not have any brothers. Patient has 4 children with no major medical problems. Son(s) Family Medical History: Deep Vein Thrombosis (DVT) Medications and Allergies Home Medications Medication Instructions Recorded Confirmed Type Apixaban [Eliquis] 5 mg PO BID 09/18/19 02/25/21 History Ascorbic Acid [Vitamin C] 500 mg PO HS 09/18/19 02/25/21 History Atorvastatin [Lipitor] 10 mg PO HS@199909/18/19 02/25/21 History Cholecalciferol [Vitamin D3 (25 25 mcg PO HS 09/18/19 02/25/21 History Mcg = 1000 Iu)] Famotidine [Pepcid] 20 mg PO BID 09/18/19 02/25/21 History Furosemide [Lasix] 40 mg PO DAILY 09/18/19 02/25/21 History Losartan [Cozaar] 50 mg PO DAILY tab 09/21/19 02/25/21 Rx Docusate Sodium [Dok] 200 mg PO DAILY PRN 02/07/21 02/25/21 History Multivitamins, Thera [Multivitamin 1 tab PO DAILY 02/07/21 02/25/21 History (formulary)] Acetaminophen Tab [Tylenol] 650 mg PO Q6HR PRN 02/25/21 02/25/21 History Omeprazole 20 mg PO DAILY 02/25/21 02/25/21 History Promethazine HCl 12.5 mg PO Q6H PRN 02/25/21 02/25/21 History Vitamin E (Dl,Tocopheryl Acet) 400 unit PO DAILY 02/25/21 02/25/21 History [Vitamin E (400 Iu = 180 mg)] carvediloL [Coreg*] 12.5 mg PO BID 02/25/21 02/25/21 History Allergies Allergy/AdvReac Type Severity Reaction Status Date / Time hydrocodone [From Vicodin] AdvReac Intermediate Unknown Verified 02/25/21 14:12 Physical Exam Vitals: Vital Signs Temp Pulse Pulse Pulse Resp BP BP 02/26/21 06:44 97.7 F 100 18 107/62 02/26/21 05:52 98.2 F 89 16 116/71 02/25/21 22:30 103 H 16 02/25/21 22:22 98.2 F 103 H 16 114/68 02/25/21 19:42 110 H 18 114/76 02/25/21 16:40 97.9 F 02/25/21 14:00 110 H 18 166/93 02/25/21 13:30 89 18 174/107 02/25/21 11:48 99.2 F 103 H 18 179/84 Pulse Ox 02/26/21 06:44 92 L 02/26/21 05:52 92 L 02/25/21 22:30 02/25/21 22:22 91 L 02/25/21 19:42 93 L 02/25/21 16:40 02/25/21 14:00 93 L 02/25/21 13:30 95 02/25/21 11:48 95 Intake and Output 02/25/21 02/26/21 02/26/21 22:59 06:59 14:59 Intake Total 1000 664.827 Output Total 1700 400 Balance -700 264.827 Intake: Intake, IV Titration 1000 664.827 Amount Ampicillin-Sulbactam 1.5 100 gm In Sodium Chloride 0.9 % 50 ml @ 100 mls/hr IVPB ONCE STA Rx#:[id number] Heparin Sod,Pork in 0.45% 64.827 NaCl 25,000 unit In 0.45 % NaCl 1 250ml.bag @ 9.93 UNITS/KG/HR 9.999 mls/hr IV .Q24H EDILMA Rx#: [id number] Sodium Chloride 0.9% 1, 900 000 ml @ 130 mls/hr IV . Q7H42M STA Rx#:[id number] Sodium Chloride 0.9% 1, 600 000 ml @ 50 mls/hr IV . Q20H EDILMA Rx#:[id number] Output: Gastric Drainage 1700 Urine 400 Other: Voiding Method Indwelling Catheter Weight 100.698 kg Results 02/26/21 08:01 02/26/21 08:01 Cardiac Enzymes 02/25/21 Range/Units 12:00 AST 25 (14-36) U/L Coagulation 02/25/21 02/25/21 02/25/21 Range/Units 12:00 17:38 23:27 PT 12.1 H 12.1 H (9.0-12.0) sec APTT 22.9 23.2 35.2 H (22.0-30.0) sec 02/26/21 Range/Units 08:01 PT 12.0 (9.0-12.0) sec APTT 73.7 H (22.0-30.0) sec CBC 02/25/21 02/25/21 02/26/21 Range/Units 12:00 17:38 08:01 WBC 15.6 H 13.9 H 12.6 H (3.8-10.6) k/uL RBC 4.73 4.32 4.10 (3.80-5.40) m/uL Hgb 14.4 13.1 12.3 (11.4-16.0) gm/dL Hct 44.1 40.7 38.7 (34.0-46.0) % Plt Count 569 H 466 H 448 (150-450) k/uL Comprehensive Metabolic Panel 02/25/21 Range/Units 12:00 Sodium 139 (137-145) mmol/L Potassium 3.8 (3.5-5.1) mmol/L Chloride 93 L (98-107) mmol/L Carbon Dioxide 36 H (22-30) mmol/L BUN 26 H (7-17) mg/dL Creatinine 0.82 (0.52-1.04) mg/dL Glucose 169 H (74-99) mg/dL Calcium 9.8 (8.4-10.2) mg/dL AST 25 (14-36) U/L ALT 18 (4-34) U/L Alkaline Phosphatase 85 (38-126) U/L Total Protein 6.7 (6.3-8.2) g/dL Albumin 3.5 (3.5-5.0) g/dL Current Medications Generic Name Dose Route Start Last Admin Trade Name Freq PRN Reason Stop Dose Admin Acetaminophen 650 mg 02/25/21 13:42 Acetaminophen Tab 325 Mg Tab PO Q6HR PRN Mild Pain or Fever > 100.5 Heparin Sodium (Porcine) 0 unit 02/25/21 17:15 02/26/21 01:05 Heparin Sodium 1,000 Un/Ml (10ml Vl) IV 2,517.25 unit PER PROTOCOL PRN Administration Low PTT Protocol Ampicillin Sodium/Sulbactam 50 mls @ 100 mls/hr 02/25/21 21:00 02/26/21 08:01 Sodium 1.5 gm/ Sodium Chloride IVPB 100 mls/hr Q6H EDILMA Administration Sodium Chloride 1,000 mls @ 50 mls/hr 02/25/21 13:45 02/25/21 18:38 Saline 0.9% IV 50 mls/hr .Q20H EDILMA Administration Heparin Sodium/Sodium Chloride 250 mls @ 9.999 mls/hr 02/25/21 17:15 02/26/21 01:15 25,000 unit/ Sodium Chloride IV 11.93 units/kg/hr .Q24H EDILMA 12.013 mls/hr Titration Protocol 9.93 UNITS/KG/HR Morphine Sulfate 4 mg 02/25/21 13:42 Morphine Sulfate 4 Mg/Ml Syringe IV Q4HR PRN Severe Pain Naloxone HCl 0.2 mg 02/25/21 13:42 Naloxone 0.4 Mg/Ml 1 Ml Vial IV Q2M PRN Opioid Reversal Ondansetron HCl 4 mg 02/25/21 13:42 Ondansetron 4 Mg/2 Ml Vial IVP Q8HR PRN Nausea And Vomiting Pantoprazole Sodium 40 mg 02/26/21 09:00 02/26/21 08:01 Pantoprazole 40 Mg/10 Ml Vial IV 40 mg DAILY EDILMA Administration Intake and Output 02/25/21 02/26/21 02/26/21 22:59 06:59 14:59 Intake Total 1000 664.827 Output Total 1700 400 Balance -700 264.827 Intake: Intake, IV Titration 1000 664.827 Amount Ampicillin-Sulbactam 1.5 100 gm In Sodium Chloride 0.9 % 50 ml @ 100 mls/hr IVPB ONCE STA Rx#:[id number] Heparin Sod,Pork in 0.45% 64.827 NaCl 25,000 unit In 0.45 % NaCl 1 250ml.bag @ 9.93 UNITS/KG/HR 9.999 mls/hr IV .Q24H EDILMA Rx#: [id number] Sodium Chloride 0.9% 1, 900 000 ml @ 130 mls/hr IV . Q7H42M STA Rx#:[id number] Sodium Chloride 0.9% 1, 600 000 ml @ 50 mls/hr IV . Q20H EDILMA Rx#:[id number] Output: Gastric Drainage 1700 Urine 400 Other: Voiding Method Indwelling Catheter Weight 100.698 kg 02/26/21 08:01 02/25/21 12:00
[2021-02-26] MEDS ORDERED: Potassium Replacement Protocol 1 EACH MISC MISCELLANE PRN (10:42)
[2021-02-26] MEDS ORDERED: Magnesium Replacement Protocol 1 EACH MISC MISCELLANE PRN (10:42)
--- NOTE | 2021-02-26 11:00 | ECHOF ---
Referral Reason:LV function MEASUREMENTS -------- HEIGHT: 170.2 cm WEIGHT: 100.7 kg BP: IVSd: 1.1 cm (0.6 - 1.1) LVIDd: 2.4 cm (3.9 - 5.3) LVPWd: 1.0 cm (0.6 - 1.1) IVSs: 1.6 cm LVIDs: 1.7 cm LVPWs: 1.6 cm LAESV Index (A-L): 33.38 ml/m Ao Diam: 3.8 cm (2.0 - 3.7) AV Cusp: 2.0 cm (1.5 - 2.6) LA Diam: 3.6 cm (2.7 - 3.8) MV EXCURSION: 27.419 mm (> 18.000) MV EF SLOPE: 86 mm/s (70 - 150) EPSS: 0.9 cm MV E Bon: 1.14 m/s MV DecT: 323 ms MV A Bon: 0.39 m/s MV E/A Ratio: 2.90 AV maxP.12 mmHg AV meanP.05 mmHg AR PHT: 1063 ms RAP: 5.00 mmHg RVSP: 9.20 mmHg FINDINGS -------- This was a technically adequate study. The left ventricular size is normal. There is mild concentric left ventricular hypertrophy. Overa ll left ventricular systolic function is normal with, an EF between 55 - 60 %. Normal LAP Grade 1 D iastolic Dysfunction. The right ventricle is normal in size. LA is midly dilated 29-33ml/m2. The right atrial size is normal. The aortic valve was not well visualized. Aortic valve is trileaflet and is mildly thickened. The re is mild aortic regurgitation. There is mild aortic stenosis present. Peak/mean gradient across the Aortic Valve is 19.12mmHg / 11.05mmHg. The mitral valve is normal. The mitral valve leaflets are mildly thickened. Mild mitral regurgita tion is present. The tricuspid valve appears structurally normal. Mild tricuspid regurgitation present. Right vent ricular systolic pressure is normal at < 35 mmHg. There is no pulmonic regurgitation present. The aortic root size is normal. IVC Not well visulized. There is no pericardial effusion. CONCLUSIONS -------- 1. The left ventricular size is normal. 2. There is mild concentric left ventricular hypertrophy. 3. Overall left ventricular systolic function is normal with, an EF between 55 - 60 %. 4. Normal LAP Grade 1 Diastolic Dysfunction. 5. LA is midly dilated 29-33ml/m2. 6. Aortic valve is trileaflet and is mildly thickened. 7. There is mild aortic regurgitation. 8. There is mild aortic stenosis present. 9. Peak/mean gradient across the Aortic Valve is 19.12mmHg / 11.05mmHg. 10. The mitral valve leaflets are mildly thickened. 11. Mild tricuspid regurgitation present. 12. There is no pericardial effusion. INSPECTOR RETURNED MATERIALS: Cee Crowder RDCS
[2021-02-26] MEDS ORDERED: IV FLUID CONTINUATION 1,000 ML IV ONE (11:19)
[2021-02-26] MEDS ORDERED: MIDAZOLAM 2 MG/2 ML VIAL ONE (11:40)
[2021-02-26] MEDS ORDERED: GLYCOPYRROLATE 0.2 MG/ML 2 ML VIAL ONE (11:40)
[2021-02-26] MEDS ORDERED: LIDOCAINE 1% INJ 10MG/ML (20 ML MDV) ONE (11:40)
[2021-02-26] MEDS ORDERED: fentaNYL (PF) 50 MCG/ML 2 ML AMP ONE (11:40)
[2021-02-26] MEDS ORDERED: PROPOFOL 10 MG/ML 20 ML VIAL IV ONE (11:40)
[2021-02-26] MEDS ORDERED: ROCURONIUM 10 MG/ML (5 ML VIAL) IV ONE (11:40)
[2021-02-26] MEDS ORDERED: PHENYLEPHRINE-0.9% NACL SYG 1,000 MCG/10 ML SYRINGE ONE (11:40)
[2021-02-26] MEDS ORDERED: NEOSTIGMINE 1 MG/ML 10 ML VIAL ONE (11:40)
[2021-02-26] MEDS ORDERED: SUCCINYLCHOLINE CHLORIDE 100 MG/5 ML SYR IV ONE (11:40)
[2021-02-26] MEDS ORDERED: SODIUM CHLORIDE 0.9% 50 ML with ceFAZolin 2 GM IV ONE ×2 (11:45)
[2021-02-26] MEDS ORDERED: LACTATED RINGERS 1,000 ML IV ONE (13:18)
--- NOTE | 2021-02-26 13:18 | P.OP ---
Date of Procedure: 02/26/21 Preoperative Diagnosis: Incarcerated incisional hernia Postoperative Diagnosis: Incarcerated incisional hernia Procedure(s) Performed: (Incarcerated incisional hernia with mesh Partial omentectomy Anesthesia: RICKIE Surgeon: Madhav Poe Estimated Blood Loss (ml): 25 Pathology: other (Omentum) Condition: stable Disposition: PACU Description of Procedure: The patient's placed in the operative table in the supine position. She received general endotracheal tube anesthesia. Her abdomen was prepped and draped usual fashion. Patient had 2 incisional hernias. Was located in the epigastric area the other was located in the left periumbilical area. The skin was incised. In the subcutaneous tissues were divided off the hernia sacs. The hernia sac contained incarcerated omentum and small bowel in the epigastric hernia. There was small bowel located in the left lower hernia. The fascia exposed. The hernia sac was opened. Portion of omentum was nonviable. This was dissected free to pathology. The fascia was closed with looped. 0 Ethibond suture. After the fascial repair. The fascia was resutured with #1 Nancy fix suture. A piece of Prolene mesh was placed over top the repair and secured with a secure strap tacker. A FEI drains placed through separate stab incision and brought through the left epigastric area. The Torrey's fascia was closed with 0 Vicryl suture. Skin was closed with. Patient top she will was sent to recovery room in stable condition.
[2021-02-26] MEDS ORDERED: HYDROmorphone 0.5 MG/0.5 ML SYRINGE IVP ONE ×2 (13:35)
[2021-02-26] MEDS ORDERED: LABETALOL 5 MG/ML VIAL MDV IVP ONE (13:51)
[2021-02-26] MEDS ORDERED: LABETALOL SYRINGE 5 MG/ML IVP ONE (14:38)
[2021-02-26] MEDS: HYDROmorphone 1 MG/ML 1 ML SYRINGE IVP PRN ×2 (15:18→22:26)
[2021-02-26] MEDS: 0.9% NACL WITH KCL 40 MEQ/L 1,000 ML IV SCH (15:36)
--- NOTE | 2021-02-26 17:55 | PN ---
PROGRESS NOTE DATE OF SERVICE: 02/26/2021 This 85-year-old woman who was admitted with acute bowel obstruction secondary to incarcerated incisional hernia, underwent repair of incarcerated incisional hernia with partial omentectomy by Dr. Poe. No chest pain. No palpitations. No fever. PHYSICAL EXAMINATION: Alert and oriented x3. Pulse is 72. Blood pressure 144/70, respirations 16, temperature is normal. Pulse ox 98% on 2 L. HEENT: Conjunctivae normal. Neck: No JVD. Cardiovascular: S1, S2 muffled. Respiratory System: Breath sounds diminished at the bases. A few scattered rhonchi. Abdomen: Soft. Nontender. Nervous system: No focal deficits. LABS: WBC 12.6, sodium 140, potassium 3.4. Albumin is 2.8. ASSESSMENT: 1. Acute bowel obstruction possibly secondary to incarcerated incisional hernia status post surgery with incarcerated incisional hernia repair with mesh and as well as partial omentectomy. 2. Status post NG tube decompression of the significant dilated stomach and duodenum. 3. History of recent cholecystectomy. 4. Multiple anterior abdominal wall hernias. 5. Increased WBC. 6. Increased BUN. 7. Increased random blood sugar. 8. Increased lactic acid. 9. Elevated lipase with normal amylase. 10.History of atrial fibrillation. 11.History of deep vein thrombosis. 12.History of gastroesophageal reflux disease. 13.History of hearing defects. 14.Hypertension. 15.Hyperlipidemia. 16.History of multiple abdominal hernias. 17.History of skin cancer. 18.History of section. 19.History of ASD repair in 2012. 20.Remote history of nicotine dependence. 21.Obesity, body mass index of 34.9. 22.FULL CODE. RECOMMENDATIONS AND DISCUSSION: Recommend to continue current medications, management and symptomatic treatment. Continue proton pump inhibitors. Monitor electrolytes closely. Otherwise, DVT prophylaxis. Closely follow with Dr. Poe. Guarded prognosis. Further recommendations to follow. MMODL / IJN: [id number] /
[2021-02-27] MEDS: AMPICILLIN-SULBACTAM 1.5 GM in SODIUM CHLORIDE 0.9% 50 ML IVPB SCH ×4 (02:51→20:31)
[2021-02-27] MEDS ORDERED: ONDANSETRON 4 MG/2 ML VIAL IVP PRN (07:00)
[2021-02-27] MEDS ORDERED: HYDROmorphone 0.5 MG/0.5 ML SYRINGE IVP PRN (07:00)
[2021-02-27] MEDS ORDERED: METOPROLOL TARTRATE 5 MG/5 ML VIAL IVP SCH (08:30)
[2021-02-27 09:38] LABS: Basophils % (A) 0 %; Eosinophils % (A) 0 %; HCT 39.9 % (34.0-46.0); HGB 12.6 gm/dL (11.4-16.0); Lymphocytes # (A) 0.8 k/uL (1.0-4.8); Lymphocytes % (A) 5 %; MCH 30.3 pg (25.0-35.0); MCHC 31.6 g/dL (31.0-37.0); MCV 95.8 fL (80.0-100.0); Mean Platelet Volume 7.9; Monocytes # (A) 0.6 k/uL (0-1.0); Monocytes % (A) 4 %; Neutrophils % (A) 90 %; Platelet Count 419 k/uL (150-450); RBC 4.16 m/uL (3.80-5.40); RDW 12.8 % (11.5-15.5); WBC 14.4 k/uL (3.8-10.6)
[2021-02-27] MEDS: PANTOPRAZOLE 40 MG/10 ML VIAL IV SCH (09:47)
[2021-02-27 09:51] LABS: African American GFR (CKD) >90 (>60 ml/min/1.73 sqM); Anion Gap 6 mmol/L; Blood Urea Nitrogen 22 mg/dL (7-17); Calcium 8.6 mg/dL (8.4-10.2); Carbon Dioxide 36 mmol/L (22-30); Chloride 100 mmol/L (98-107); Glucose 95 mg/dL (74-99); Non-African American GFR(CKD) 83 (>60 ml/min/1.73 sqM); Sodium 142 mmol/L (137-145)
--- NOTE | 2021-02-27 10:02 | P.PN ---
Subjective Progress Note Date: 02/27/21 HISTORY OF PRESENT ILLNESS: This is a 85-year-old female with a past medical history significant for paroxysmal atrial fibrillation, DVT, hypertension, valvular heart disease, and ASD status post percutaneous repair 2012. Patient follows in the office with Dr. Pope. We have been asked to see the patient in consultation for atrial fibrillation. Patient examined at the bedside. The patient had an open cholecystectomy with Dr. Poe on 02/10/2021. Patient's postoperative course was complicated by an ileus. The patient was discharged to [facility] for rehab. Patient presented back to the hospital with abdominal pain and vomiting. Patient was found to have a small bowel obstruction and had an NG tube placed. She is scheduled for exploratory laparotomy today with Dr. Poe. The patient currently denies chest pain or pressure. She denies shortness of breath. She denies dizziness or lightheadedness. She denies palpitations. The patient takes Eliquis for her atrial fibrillation. She has been placed on IV heparin per internal medicine as her Eliquis is on hold. EKG not available at time of dictation. Chest xray cardiomegaly, interstitial edema, and small bilateral pleural effusions. Findings may represent CHF. Laboratory data: WBC 12.6. Hemoglobin 12.3. Platelet count 448. Sodium 140. Potassium 3.4. BUN 24. Creatinine 0.61. Lactic acid 2.4. Repeat 1.5. Current home cardiac medications include Coreg 12.5 mg twice a day, losartan 50 million times daily, Lasix 40 mrem daily, atorvastatin 10 mg daily, Eliquis 5 mg twice a day Most recent echocardiogram obtained in March 2020 revealed ejection fraction 55%. PFO closure device present. [id number] aortic regurgitation and mild aortic stenosis. Moderate mitral regurgitation. Moderate tricuspid regurgitation. 02/27/2021 Patient is s/p repair of incarcerated incisional hernia with mesh with Dr. Poe. POD #1. Patient examined this morning at the bedside. She denies chest pain or pressure. She denies shortness of breath. She continues to be NPO and has a NG tube present. Telemetry reveals atrial fibrillaton with a heart rate 100-120. Echocardiogram completed revealing mild concentric left ventricular hypertrophy, ejection fraction 55-60%, mild aortic regurgitation, mild aortic stenosis, and mild tricuspid regurgitation PHYSICAL EXAM: VITAL SIGNS: Reviewed. GENERAL: Well-developed in no acute distress. HEENT: Head is normocephalic. Pupils are equal, round. Sclerae anicteric. Mucous membranes of the mouth are moist. Neck supple. No JVD or thyromegaly LUNGS: Respirations even and unlabored. Lungs essentially clear to auscultation bilaterally. HEART: Tachycardic. Irregular rate and rhythm. S1 and S2 heard. Systolic and diastolic murmur noted. EXTREMITIES: Normal range of motion. No clubbing or cyanosis. Peripheral pulses intact. Chronic lower extremity edema noted. NEUROLOGIC: Awake and alert. Oriented x 3. ASSESSMENT: Small bowel obstruction, s/p repair of incarcerated incisional hernia with mesh Recent open cholecystectomy Paroxysmal atrial fibrillation History of DVT status post arthrectomy Hypertension Valvular heart disease ASD status post percutaneous repair 2012 PLAN: Case discussed with surgical PACheryl. From a cardiac standpoint, we would like to resume IV heparin (and transition to Eliquis when patient is able to tolerate oral medications). Await further decision from surgical team regarding initiating IV heparin Patients current cardiac medications on hold secondary to SBO. Resume postoperatively when able to tolerate oral medications Will add metoprolol 2.5mg IVP Q6 hours to optimal heart rate control Further recommendations pending patient course Nurse practitioner note has been reviewed by physician. Signing provider agrees with the documented findings, assessment, and plan of care. Objective - Vital Signs Vital signs: Vital Signs Temp 98.8 F 02/27/21 04:56 Pulse 117 H 02/27/21 04:56 Resp 18 02/27/21 04:56 BP 156/78 02/27/21 04:56 Pulse Ox 98 02/27/21 04:56 Intake & Output 02/26/21 02/27/21 02/27/21 18:59 06:59 18:59 Intake Total 1404.980 400 Output Total 665 30 Balance 739.980 370 Intake: IV 850 Intake, IV Titration 554.980 400 Amount 0.9% NaCl with KCl 40 Meq 150 400 /l 1,000 ml @ 50 mls/hr IV .Q20H EDILMA Rx#: [id number] Ampicillin-Sulbactam 1.5 100 gm In Sodium Chloride 0.9 % 50 ml @ 100 mls/hr IVPB Q6H EDILMA Rx#:[id number] Heparin Sod,Pork in 0.45% 104.980 NaCl 25,000 unit In 0.45 % NaCl 1 250ml.bag @ 9.93 UNITS/KG/HR 9.999 mls/hr IV .Q24H EDILMA Rx#: [id number] Sodium Chloride 0.9% 1, 200 000 ml @ 50 mls/hr IV . Q20H EDILMA Rx#:[id number] Output: Gastric Drainage 200 Drainage 85 30 Abdomen 85 30 Urine 300 Estimated Blood Loss 80 Other: Voiding Method Indwelling Catheter Indwelling Catheter - Labs CBC & Chem 7: 02/27/21 09:00 02/27/21 09:00 Labs: Abnormal Lab Results - Last 24 Hours (Table) 02/27/21 02/27/21 Range/Units 09:00 09:00 WBC 14.4 H (3.8-10.6) k/uL Neutrophils # 13.0 H (1.3-7.7) k/uL Lymphocytes # 0.8 L (1.0-4.8) k/uL Carbon Dioxide 36 H (22-30) mmol/L BUN 22 H (7-17) mg/dL Microbiology - Last 24 Hours (Table) 02/25/21 14:12 Blood Culture - Preliminary Blood No Growth after 24 hours 02/25/21 14:00 Blood Culture - Preliminary Blood No Growth after 24 hours
--- NOTE | 2021-02-27 10:57 | P.PN ---
Subjective Progress Note Date: 02/27/21 CHIEF COMPLAINT: Incarcerated incisional hernias HISTORY OF PRESENT ILLNESS: Patient is postop day #1 status post repair of incarcerated incisional hernia with mesh and partial omentectomy. Patient has NG tube in place with 200 mL brownish output through the night. She reports that her pain is controlled. She denies any nausea. Denies any flatus. She reports feeling dry and thirsty. Her urine is dark. Afebrile heart rate 117 blood pressure 156/78 WBC is 14.4 Hgb 12.6 platelets 419 sodium 142 potassium 4.0 creatinine 0.63 PHYSICAL EXAM: VITAL SIGNS: Reviewed. GENERAL: Well-developed in no acute distress. HEENT: No sclera icterus. Extraocular movements grossly intact. Moist buccal mucosa. Head is atraumatic, normocephalic. ABDOMEN: Soft. Nondistended. Incisional dressing with area of blood noted at the distal aspect of the dressing. FEI drain service sanguinous with 115 mL output through the day NEUROLOGIC: Alert and oriented. Cranial nerves II through XII grossly intact. ASSESSMENT: 1. Incarcerated incisional hernia status post repair with mesh PLAN: -Continue NG tube for decompression -Increase IV fluids to 125 mL per hour -Continue pain medication as needed -Continue IV antibiotics -Encouraged patient to increase activity level -Encouraged patient to use incentive spirometer -Subcu heparin added for DVT prophylaxis [employer] Associate note has been reviewed by physician. Signing provider agrees with the documented findings, assessment, and plan of care. Objective - Vital Signs Vital signs: Vital Signs Temp 98.8 F 02/27/21 04:56 Pulse 117 H 02/27/21 04:56 Resp 18 02/27/21 04:56 BP 156/78 02/27/21 04:56 Pulse Ox 98 02/27/21 04:56 Intake & Output 02/26/21 02/27/21 02/27/21 18:59 06:59 18:59 Intake Total 1404.980 400 Output Total 665 30 15 Balance 739.980 370 -15 Intake: IV 850 Intake, IV Titration 554.980 400 Amount 0.9% NaCl with KCl 40 Meq 150 400 /l 1,000 ml @ 50 mls/hr IV .Q20H [facility] Rx#: [id number] Ampicillin-Sulbactam 1.5 100 gm In Sodium Chloride 0.9 % 50 ml @ 100 mls/hr IVPB Q6H [facility] Rx#:[id number] Heparin Sod,Pork in 0.45% 104.980 NaCl 25,000 unit In 0.45 % NaCl 1 250ml.bag @ 9.93 UNITS/KG/HR 9.999 mls/hr IV .Q24H [facility] Rx#: [id number] Sodium Chloride 0.9% 1, 200 000 ml @ 50 mls/hr IV . Q20H [facility] Rx#:[id number] Output: Gastric Drainage 200 Drainage 85 30 15 Abdomen 85 30 15 Urine 300 Estimated Blood Loss 80 Other: Voiding Method Indwelling Catheter Indwelling Catheter - Labs CBC & Chem 7: 02/27/21 09:00 02/27/21 09:00 Labs: Abnormal Lab Results - Last 24 Hours (Table) 02/27/21 02/27/21 Range/Units 09:00 09:00 WBC 14.4 H (3.8-10.6) k/uL Neutrophils # 13.0 H (1.3-7.7) k/uL Lymphocytes # 0.8 L (1.0-4.8) k/uL Carbon Dioxide 36 H (22-30) mmol/L BUN 22 H (7-17) mg/dL Microbiology - Last 24 Hours (Table) 02/26/21 08:01 Blood Culture - Preliminary Blood No Growth after 24 hours 02/25/21 14:12 Blood Culture - Preliminary Blood No Growth after 24 hours 02/25/21 14:00 Blood Culture - Preliminary Blood No Growth after 24 hours
[2021-02-27] MEDS: 0.9% NACL WITH KCL 40 MEQ/L 1,000 ML IV SCH (11:59)
[2021-02-27] MEDS: HYDROmorphone 1 MG/ML 1 ML SYRINGE IVP PRN (12:00)
--- NOTE | 2021-02-27 14:53 | XR ---
EXAMINATION TYPE: XR chest 1V portable DATE OF EXAM: 02/27/2021 COMPARISON: 02/25/2021 HISTORY: Cough TECHNIQUE: Single frontal view of the chest is obtained. FINDINGS: Bilateral infiltrate with diffuse interstitial pattern and bilateral pleural effusion. Hea rt enlarged. Diffuse osteopenia and arthropathy of the shoulders. Surgical clips overlying the right axilla. Atherosclerotic change aorta. No pneumothorax. IMPRESSION: Bilateral infiltrate and pleural effusion stable in appearance.
--- NOTE | 2021-02-27 15:38 | PN ---
PROGRESS NOTE DATE OF SERVICE: 02/27/2021. This 85-year-old woman who was admitted with acute bowel obstruction had surgery. The patient has an NG tube. Patient is being closely monitored. No chest pain. No palpitations. No fever. The patient had some hypokalemia still which is being corrected. PHYSICAL EXAMINATION: Alert and oriented x3. Pulse is 109, blood pressure 148/80, respiration 17, temperature 98.2, pulse ox 98% on 4 L. HEENT: Conjunctivae normal. NECK: No jugular venous distention. CARDIOVASCULAR: S1, S2 muffled. RESPIRATION: Breath sounds diminished at the bases. A few scattered rhonchi. ABDOMEN: Soft. Status post surgery. LEGS: No edema. No swelling. NERVOUS SYSTEM: No focal deficit. LABS: WBC 14.6, sodium 140, potassium 4. ASSESSMENT: 1. Acute bowel obstruction, possibly secondary to incarcerated incisional hernia, status post surgery. 2. History of hernia with repair with mesh as well as partial omentectomy. 3. Status post NG tube, decompression of the significantly dilated stomach and duodenum in the ER. 4. History of recent cholecystectomy. 5. Multiple anterior abdominal wall hernias. 6. Increased white count. 7. Increased BUN. 8. Increased random blood sugar. 9. Increased lactic acid. 10.Elevated lipase and normal amylase. 11.History of atrial fibrillation. 12.History of deep vein thrombosis. 13.History of gastroesophageal reflux disease. 14.History of hearing defects. 15.Hypertension. 16.Hyperlipidemia. 17.History of multiple abdominal hernias. 18.History of skin cancer. 19.History of section. 20.History of ASD repair in 2012. 21.Remote history of nicotine dependence. 22.Obesity with body mass index of 34.9. 23.FULL CODE. RECOMMENDATIONS AND DISCUSSION: I recommend to continue current medications, continue with symptomatic treatment. Continue with empiric antibiotics. I would also recommend a portable chest x-ray. Cut down the IV fluids. Repeat labs. Guarded prognosis because of the multiple complex medical issues. Further recommendations to follow. MMODL / IJN: [id number] /
[2021-02-27] MEDS: HEPARIN SODIUM,PORCINE/PF 5,000 UNIT/0.5 ML SYRINGE SQ SCH ×2 (17:20→23:18)
[2021-02-28] MEDS: 0.9% NACL WITH KCL 40 MEQ/L 1,000 ML IV SCH ×2 (01:17→08:31)
[2021-02-28] MEDS: AMPICILLIN-SULBACTAM 1.5 GM in SODIUM CHLORIDE 0.9% 50 ML IVPB SCH ×4 (02:39→20:58)
[2021-02-28 07:34] LABS: Basophils % (A) 0 %; Eosinophils % (A) 0 %; HCT 38.1 % (34.0-46.0); HGB 11.6 gm/dL (11.4-16.0); Hypochromasia Slight; Lymphocytes # (A) 0.6 k/uL (1.0-4.8); Lymphocytes % (A) 5 %; MCH 29.7 pg (25.0-35.0); MCHC 30.5 g/dL (31.0-37.0); MCV 97.4 fL (80.0-100.0); Mean Platelet Volume 8.4; Monocytes # (A) 0.4 k/uL (0-1.0); Monocytes % (A) 3 %; Neutrophils # (A) 11.7 k/uL (1.3-7.7); Neutrophils % (A) 91 %; Platelet Count 342 k/uL (150-450); RBC 3.91 m/uL (3.80-5.40); RDW 12.9 % (11.5-15.5); WBC 12.8 k/uL (3.8-10.6)
[2021-02-28] MEDS: PANTOPRAZOLE 40 MG/10 ML VIAL IV SCH (08:30)
[2021-02-28] MEDS: HEPARIN SODIUM,PORCINE/PF 5,000 UNIT/0.5 ML SYRINGE SQ SCH (09:05)
--- NOTE | 2021-02-28 09:49 | P.PN ---
Subjective Subjective Progress Note Date: 02/27/21 HISTORY OF PRESENT ILLNESS: This is a 85-year-old female with a past medical history significant for par oxysmal atrial fibrillation, DVT, hypertension, valvular heart disease, and ASD status post percutaneous repair 2012. Patient follows in the office with Dr. Pope. We have been asked to see the patient in consultation for atrial fibrillation. Patient examined at the bedside. The patient had an open cholecystectomy with Dr. Poe on 02/10/2021. Patient's postoperative course was complicated by an ileus. The patient was discharged to [facility] for rehab. Patient presented back to the hospital with abdominal pain and vomiting. Patient was found to have a small bowel obstruction and had an NG tube placed. She is scheduled for exploratory laparotomy today with Dr. Poe. The patient currently denies chest pain or pressure. She denies shortness of breath. She denies dizziness or lightheadedness. She denies palpitations. The patient takes Eliquis for her atrial fibrillation. She has been placed on IV heparin per internal medicine as her Eliquis is on hold. EKG not available at time of dictation. Chest xray cardiomegaly, interstitial edema, and small bilateral pleural effusions. Findings may represent CHF. Laboratory data: WBC 12.6. Hemoglobin 12.3. Platelet count 448. Sodium 140. Potassium 3.4. BUN 24. Creatinine 0.61. Lactic acid 2.4. Repeat 1.5. Current home cardiac medications include Coreg 12.5 mg twice a day, losartan 50 million times daily, Lasix 40 mrem daily, atorvastatin 10 mg daily, Eliquis 5 mg twice a day Most recent echocardiogram obtained in March 2020 revealed ejection fraction 55%. PFO closure device present. [id number] aortic regurgitation and mild aortic stenosis. Moderate mitral regurgitation. Moderate tricuspid regurgitation. 02/27/2021 Patient is s/p repair of incarcerated incisional hernia with mesh with Dr. Poe. POD #1. Patient examined this morning at the bedside. She denies chest pain or pressure. She denies shortness of breath. She continues to be NPO and has a NG tube present. Telemetry reveals atrial fibrillaton with a heart rate 100-120. Echocardiogram completed revealing mild concentric left ventricular hypertrophy, ejection fraction 55-60%, mild aortic regurgitation, mild aortic stenosis, and mild tricuspid regurgitation 02/28 Patient seen and examined. Patient still has him abdominal pain mainly around the incision. Still has the NG tube and and nothing by mouth. Unable to give any rate controlling medications however heart rate 70 well-controlled mainly in the 90s. Anticoagulation has been on hold per surgery. PHYSICAL EXAM: VITAL SIGNS: Reviewed. GENERAL: Well-developed in no acute distress. HEENT: Head is normocephalic. Pupils are equal, round. Sclerae anicteric. Mucous membranes of the mouth are moist. Neck supple. No JVD or thyromegaly LUNGS: Respirations even and unlabored. Lungs essentially clear to auscultation bilaterally. HEART: Tachycardic. Irregular rate and rhythm. S1 and S2 heard. Systolic and diastolic murmur noted. EXTREMITIES: Normal range of motion. No clubbing or cyanosis. Peripheral pulses intact. Chronic lower extremity edema noted. NEUROLOGIC: Awake and alert. Oriented x 3. ASSESSMENT: Small bowel obstruction, s/p repair of incarcerated incisional hernia with mesh Recent open cholecystectomy Paroxysmal atrial fibrillation History of DVT status post arthrectomy Hypertension Valvular heart disease ASD status post percutaneous repair 2012 PLAN: Ideally restart anticoagulation however if continued risk of possible bleed this may be deferred for a day or 2. Defer initiation to surgery and would restart Eliquis 5 mg BID when able. Ideally restart home blood pressure regimen however she has been doing fairly well without medications at this point. Heart rates predominately controlled in the 90s and blood pressure predominantly controlled. She has not been eating much of anything and appears euvolemic however once able to tolerate oral food likely restart Lasix as well. Further recommendations to follow. Objective - Vital Signs Vital signs: Vital Signs Temp 98.1 F 02/28/21 04:30 Pulse 106 H 02/28/21 04:30 Resp 20 02/28/21 04:30 BP 143/85 02/28/21 04:30 Pulse Ox 99 02/28/21 04:30 Intake & Output 02/27/21 02/28/21 02/28/21 18:59 06:59 18:59 Intake Total 950 1000 Output Total 555 630 Balance 395 370 Intake: Intake, IV Titration 950 1000 Amount 0.9% NaCl with KCl 40 Meq 900 900 /l 1,000 ml @ 75 mls/hr IV .[id number] [facility] Rx#: [id number] Ampicillin-Sulbactam 1.5 50 100 gm In Sodium Chloride 0.9 % 50 ml @ 100 mls/hr IVPB Q6H [facility] Rx#:[id number] Oral 0 Output: Drainage 155 30 Abdomen 155 30 Urine 400 600 Uretheral (Muir) 300 Other: Voiding Method Indwelling Catheter Indwelling Catheter - Labs CBC & Chem 7: 02/28/21 06:44 02/27/21 09:00 Labs: Abnormal Lab Results - Last 24 Hours (Table) 02/27/21 02/28/21 Range/Units 09:00 06:44 WBC 12.8 H (3.8-10.6) k/uL MCHC 30.5 L (31.0-37.0) g/dL Neutrophils # 11.7 H (1.3-7.7) k/uL Lymphocytes # 0.6 L (1.0-4.8) k/uL Carbon Dioxide 36 H (22-30) mmol/L BUN 22 H (7-17) mg/dL Microbiology - Last 24 Hours (Table) 02/25/21 14:00 Blood Culture - Preliminary Blood No Growth after 48 hours 02/25/21 14:12 Blood Culture - Preliminary Blood No Growth after 48 hours 02/26/21 08:01 Blood Culture - Preliminary Blood No Growth after 24 hours
[2021-02-28 11:38] LABS: African American GFR (CKD) 100.9 (60.0-200.0); Anion Gap 14.9 mmol/L (4.00-12.00); BUN/Creat Ratio 34.9 Ratio (12.00-20.00); Blood Urea Nitrogen 18.6 mg/dL (9.0-27.0); Calcium 8.7 mg/dL (8.7-10.3); Carbon Dioxide 29.8 mmol/L (21.6-31.8); Potassium 4.1 mmol/L (3.5-5.5)
[2021-02-28] MEDS: HYDROmorphone 1 MG/ML 1 ML SYRINGE IVP PRN (13:35)
[2021-02-28 15:04] VITALS: BMI 34.7
--- NOTE | 2021-02-28 15:32 | P.PN ---
Subjective Progress Note Date: 02/28/21 CHIEF COMPLAINT: Incarcerated incisional hernias HISTORY OF PRESENT ILLNESS: Patient is postop day #2 status post repair of incarcerated incisional hernia with mesh and partial omentectomy. Patient has NG tube in place with minimal output. She reports that her pain is controlled. She denies any flatus or BM. She is afebrile. Heart rate 106. WBC 14.4 down to 12.8 Hgb is 11.6 sodium 151 Patient seen and examined with Dr. amaya PHYSICAL EXAM: VITAL SIGNS: Reviewed. GENERAL: Well-developed in no acute distress. HEENT: No sclera icterus. Extraocular movements grossly intact. Moist buccal mucosa. Head is atraumatic, normocephalic. ABDOMEN: Soft. Nondistended. Incisional dressing with area of blood noted at the distal aspect of the dressing. NEUROLOGIC: Alert and oriented. Cranial nerves II through XII grossly intact. ASSESSMENT: 1. Incarcerated incisional hernia status post repair with mesh 2. Hypernatremia PLAN: -Discontinue NG tube -Start clear liquid diet -Okay to resume Eliquis from a surgical standpoint -Continue IV antibiotics -Hypernatremia management per medicine service -Encouraged patient to increase activity level -Encouraged patient to use incentive spirometer Physician [employer] Operator note has been reviewed by physician. Signing provider agrees with the documented findings, assessment, and plan of care. Objective - Vital Signs Vital signs: Vital Signs Temp 97.7 F 02/28/21 11:40 Pulse 99 02/28/21 11:40 Resp 18 02/28/21 11:40 BP 138/73 02/28/21 11:40 Pulse Ox 96 02/28/21 11:40 Intake & Output 02/27/21 02/28/21 02/28/21 18:59 06:59 18:59 Intake Total 950 1000 Output Total 555 630 Balance 395 370 Weight 100.698 kg Intake: Intake, IV Titration 950 1000 Amount 0.9% NaCl with KCl 40 Meq 900 900 /l 1,000 ml @ 75 mls/hr IV .[id number] [facility] Rx#: [id number] Ampicillin-Sulbactam 1.5 50 100 gm In Sodium Chloride 0.9 % 50 ml @ 100 mls/hr IVPB Q6H [facility] Rx#:[id number] Oral 0 Output: Drainage 155 30 Abdomen 155 30 Urine 400 600 Uretheral (Muir) 300 Other: Voiding Method Indwelling Catheter Indwelling Catheter Indwelling Catheter - Labs CBC & Chem 7: 02/28/21 06:44 02/28/21 06:44 Labs: Abnormal Lab Results - Last 24 Hours (Table) 02/28/21 02/28/21 Range/Units 06:44 06:44 WBC 12.8 H (3.8-10.6) k/uL MCHC 30.5 L (31.0-37.0) g/dL Neutrophils # 11.7 H (1.3-7.7) k/uL Lymphocytes # 0.6 L (1.0-4.8) k/uL Sodium 151 H (135-145) mmol/L Anion Gap 14.90 H (4.00-12.00) mmol/L Creatinine 0.5 L (0.6-1.5) mg/dL BUN/Creatinine Ratio 34.90 H (12.00-20.00) Ratio Glucose 111 H (70-110) mg/dL Microbiology - Last 24 Hours (Table) 02/26/21 08:01 Blood Culture - Preliminary Blood No Growth after 48 hours 02/25/21 14:00 Blood Culture - Preliminary Blood No Growth after 48 hours 02/25/21 14:12 Blood Culture - Preliminary Blood No Growth after 48 hours
[2021-02-28] MEDS: DEXTROSE 5% IN WATER 1,000 ML with POTASSIUM CHLORIDE 40 MEQ IV SCH (16:23)
--- NOTE | 2021-02-28 16:46 | PN ---
PROGRESS NOTE DATE OF SERVICE: 02/28/2021. HISTORY: This is an 85-year-old woman who was admitted with acute bowel obstruction secondary to incisional hernia surgery. Patient still has NG tube. The most recent chest x-ray which was reviewed personally by me showed some atelectasis and fullness of both lower lung kelley. No chest pain. No palpitations. No fever. PHYSICAL EXAMINATION: Alert and oriented x3. Pulse is 106, blood pressure 120/48, respiration 20, temp 98.1, pulse ox 98% on 4 L HEENT normal. Cardiovascular S1, S2, muffled. No S3, no S4. Breath sounds at the bases. Few scattered rhonchi. Abdomen is soft, status post surgery. Legs no edema. Nervous system no focal deficits. LABS: Sodium is 151. WBC 12.8. ASSESSMENT: 1. Acute bowel obstruction possibly secondary to incarcerated incisional hernia status post surgery. 2. History of incisional hernia repair with mesh as well as partial omentectomy. 3. Status post NG tube decompression significantly dilated stomach and duodenum in the ER. 4. History of recent cholecystectomy. 5. Multiple anterior abdominal hernias. 6. Increased WBC. 7. Increased BUN. 8. Hypernatremia. 9. Increased random blood glucose. 10.Increased lactic acid. 11.Elevated lipase and normal amylase. 12.History atrial fibrillation. 13.History of DVT. 14.GERD. 15.History of hearing defects. 16.Hypertension. 17.Hyperlipidemia. 18.History of multiple abdominal hernias. 19.History of skin cancer. 20.History of section. 21.History of ASD repair in 2012. 22.Remote history of nicotine dependence. 23.Obesity with body mass index of 34.9. 24.FULL CODE. RECOMMENDATIONS AND DISCUSSION: I recommend to continue current management and symptomatic treatment. Otherwise I would change IV fluids to D5 water with some potassium. Continue to monitor. Repeat labs. Closely follow with surgery. DVT prophylaxis. Further recommendations to follow. MMODL / IJN: [id number] /
[2021-02-28] MEDS: carvediloL 12.5 MG TAB PO SCH (17:46)
[2021-02-28] MEDS: ACETAMINOPHEN TAB 325 MG TAB PO PRN (20:52)
[2021-02-28] MEDS: APIXABAN 5 MG TAB PO SCH (20:53)
[2021-02-28] MEDS: ATORVASTATIN 10 MG TAB PO SCH (20:53)
[2021-03-01] MEDS: AMPICILLIN-SULBACTAM 1.5 GM in SODIUM CHLORIDE 0.9% 50 ML IVPB SCH ×4 (03:27→21:13)
[2021-03-01] MEDS: DEXTROSE 5% IN WATER 1,000 ML with POTASSIUM CHLORIDE 40 MEQ IV SCH ×2 (08:20→22:27)
--- NOTE | 2021-03-01 11:06 | P.PN ---
Progress Note - Text Progress Note Date: 03/01/21 The patient remains clinically unchanged. She still has not had any significant flatus. On exam her vital signs are stable. Abdomen soft. Incision clean and intact. Status post repair of large incarcerated incisional hernia. Patient will remain nothing by mouth. We will add Reglan 10 mg IV every 6 to her medication schedule
[2021-03-01] MEDS ORDERED: DEXTROSE 5% IN WATER 1,000 ML with POTASSIUM CHLORIDE 40 MEQ IV SCH (11:15)
[2021-03-01] MEDS: METOCLOPRAMIDE 5 MG/ML 2 ML VIAL IVP SCH ×3 (12:25→23:15)
[2021-03-01] MEDS: APIXABAN 5 MG TAB PO SCH ×2 (12:25→21:12)
[2021-03-01] MEDS: PANTOPRAZOLE 40 MG/10 ML VIAL IV SCH (12:26)
[2021-03-01] MEDS: carvediloL 12.5 MG TAB PO SCH ×2 (12:26→17:05)
[2021-03-01] MEDS: FUROSEMIDE 40 MG TAB PO SCH (12:26)
[2021-03-01] MEDS ORDERED: SODIUM CHLORIDE 0.9% 1,000 ML IV ONE (17:01)
[2021-03-01 17:44] LABS: ALT 14 U/L (4-34); AST 23 U/L (14-36); African American GFR (CKD) >90 (>60 ml/min/1.73 sqM); Albumin 2.5 g/dL (3.5-5.0); Albumin/Globulin Ratio 0.9; Alkaline Phosphatase 65 U/L (38-126); Anion Gap 4 mmol/L; Blood Urea Nitrogen 26 mg/dL (7-17); Calcium 8.6 mg/dL (8.4-10.2); Carbon Dioxide 34 mmol/L (22-30); Chloride 100 mmol/L (98-107); Globulin 2.8 g/dL; Glucose 156 mg/dL (74-99); Non-African American GFR(CKD) 81 (>60 ml/min/1.73 sqM); Potassium 3.8 mmol/L (3.5-5.1); Sodium 138 mmol/L (137-145); Total Protein 5.3 g/dL (6.3-8.2)
--- NOTE | 2021-03-01 17:45 | XR ---
EXAMINATION TYPE: XR chest 1V portable DATE OF EXAM: 03/01/2021 COMPARISON: 02/27/2021 HISTORY: Vertebra TECHNIQUE: Single view FINDINGS: There is elevated left diaphragm. There is blunting of the costophrenic angles. There is li near density at the lung bases. There is no gross heart failure. Thoracic aorta is atheromatous. IMPRESSION: There is some pleural reaction and atelectasis at the lung bases slightly improved compar ed to last exam. No heart failure seen.
[2021-03-01 17:58] LABS: Basophils % (A) 0 %; Eosinophils # (A) 0.1 k/uL (0-0.7); Eosinophils % (A) 1 %; HCT 35.2 % (34.0-46.0); HGB 11.7 gm/dL (11.4-16.0); Lymphocytes % (A) 8 %; MCH 31.2 pg (25.0-35.0); MCHC 33.1 g/dL (31.0-37.0); MCV 94.2 fL (80.0-100.0); Mean Platelet Volume 8.8; Monocytes # (A) 0.5 k/uL (0-1.0); Monocytes % (A) 4 %; Neutrophils # (A) 10.9 k/uL (1.3-7.7); Neutrophils % (A) 86 %; Platelet Count 319 k/uL (150-450); RBC 3.74 m/uL (3.80-5.40); RDW 13.6 % (11.5-15.5); WBC 12.7 k/uL (3.8-10.6)
[2021-03-01] MEDS ORDERED: IPRATROPIUM-ALBUTEROL 3 ML NEB INHALATION PRN (17:58)
[2021-03-01 18:44] LABS: Appearance,Urine Cloudy (Clear); Bilirubin,Urine 1+ (Negative); Blood,Urine Small (Negative); Budding Yeast,Urine Occasional /hpf; Color,Urine Orange; Glucose,Urine (UA) Negative (Negative); Hyaline Casts,Urine 1 /lpf (0-2); Ketones,Urine Negative (Negative); Leukocyte Esterase,Urine Large (Negative); Mucus,Urine Few /hpf; Nitrite,Urine Negative (Negative); Protein,Urine 2+ (Negative); RBC,Urine 54 /hpf (0-5); Squamous Epithelial Cell,Urine <1 /hpf (0-4); WBC,Urine 57 /hpf (0-5)
[2021-03-01] MEDS: IPRATROPIUM-ALBUTEROL 3 ML NEB INHALATION SCH (19:01)
--- NOTE | 2021-03-01 20:41 | PN ---
PROGRESS NOTE DATE OF SERVICE: 03/01/2021 This 85-year-old woman who was admitted with acute bowel obstruction had surgery. The patient had. No chest pain. No palpitations. No fever. Chest x-ray was also done. Patient had some nausea. NG tube was removed. Surgery is following the patient closely. The chest x-ray was reviewed personally by me and it showed some bibasilar atelectasis. Past medical history reviewed. REVIEW OF SYSTEMS: CARDIOVASCULAR SYSTEM: No angina. RESPIRATION: As mentioned earlier. GI: As mentioned earlier. : No dysuria. NERVOUS SYSTEM: No numbness, weakness. CURRENT MEDICATIONS: Reviewed. They include Tylenol, Unasyn, Lipitor, Lasix, Dilaudid. Doses and other medications are reviewed. PHYSICAL EXAMINATION: Patient alert and oriented x3. Pulse 76, blood pressure 115/76, respiration 19, temperature 97.6, pulse ox 92% on 2 L. HEENT: Conjunctivae normal. NECK: No jugular venous distention. CARDIOVASCULAR: S1, S2 muffled. RESPIRATION: Breath sounds diminished at the bases. A few scattered rhonchi. ABDOMEN: Soft, status post surgery. LEGS: No edema. No swelling. NERVOUS SYSTEM: No focal deficit. LABS: WBC 12.8, sodium 138, potassium 3.8. BUN is 26. ASSESSMENT: 1. Acute bowel obstruction, possibly secondary to incarcerated incisional hernia, status post surgery. 2. History of incisional hernia repair and mesh as well as partial omentectomy. 3. Status post NG tube decompression, significantly dilated stomach and duodenum in the ER preoperatively. 4. Diminished urine output. 5. Bibasilar atelectasis. 6. History of recent cholecystectomy. 7. Multiple anterior abdominal wall hernias. 8. Increased white count. 9. Increased BUN. 10.Hypernatremia. 11.Increased random glucose. 12.Increased lactic acid. 13.Elevated lipase and normal amylase. 14.History of atrial fibrillation. 15.History of deep vein thrombosis. 16.History of gastroesophageal reflux disease. 17.History of hearing defects. 18.Hypertension. 19.Hyperlipidemia. 20.History of multiple abdominal hernias. 21.History of skin cancer. 22.History of section. 23.History of ASD repair in 2012. 24.Remote history of nicotine dependence. 25.Obesity with body mass index of 34.9. 26.FULL CODE. RECOMMENDATIONS AND DISCUSSION: I recommend to continue current medications, continue with symptomatic treatment. Continue with IV fluid boluses. Chest x-ray reviewed. Repeat labs in the morning. I would also recommend a short course of bronchodilators. Otherwise, we will follow the patient closely. Prognosis guarded. Further recommendations to follow. ONEAL / GAURIN: [id number] / MTDD
[2021-03-01] MEDS: ATORVASTATIN 10 MG TAB PO SCH (21:12)
[2021-03-01] MEDS: ACETAMINOPHEN TAB 325 MG TAB PO PRN (22:26)
[2021-03-02] MEDS: AMPICILLIN-SULBACTAM 1.5 GM in SODIUM CHLORIDE 0.9% 50 ML IVPB SCH ×4 (03:42→20:10)
[2021-03-02] MEDS: DEXTROSE 5% IN WATER 1,000 ML with POTASSIUM CHLORIDE 40 MEQ IV SCH ×2 (05:19→17:43)
[2021-03-02] MEDS: METOCLOPRAMIDE 5 MG/ML 2 ML VIAL IVP SCH ×4 (05:28→23:24)
[2021-03-02 07:55] LABS: Basophils % (A) 0 %; Eosinophils # (A) 0.3 k/uL (0-0.7); Eosinophils % (A) 3 %; HCT 34.5 % (34.0-46.0); HGB 11.1 gm/dL (11.4-16.0); Lymphocytes # (A) 1.1 k/uL (1.0-4.8); Lymphocytes % (A) 11 %; MCH 30.7 pg (25.0-35.0); MCHC 32.1 g/dL (31.0-37.0); MCV 95.9 fL (80.0-100.0); Mean Platelet Volume 8.3; Monocytes # (A) 0.5 k/uL (0-1.0); Monocytes % (A) 5 %; Neutrophils # (A) 8.3 k/uL (1.3-7.7); Neutrophils % (A) 81 %; Platelet Count 327 k/uL (150-450); RBC 3.59 m/uL (3.80-5.40); RDW 12.9 % (11.5-15.5); WBC 10.3 k/uL (3.8-10.6)
[2021-03-02] MEDS: IPRATROPIUM-ALBUTEROL 3 ML NEB INHALATION SCH ×3 (08:03→19:06)
[2021-03-02] MEDS: carvediloL 12.5 MG TAB PO SCH ×3 (08:21→17:48)
[2021-03-02] MEDS: APIXABAN 5 MG TAB PO SCH ×2 (08:21→20:10)
[2021-03-02] MEDS: PANTOPRAZOLE 40 MG/10 ML VIAL IV SCH (08:21)
[2021-03-02] MEDS: FUROSEMIDE 40 MG TAB PO SCH (08:21)
--- NOTE | 2021-03-02 12:49 | P.PN ---
Progress Note - Text Progress Note Date: 03/02/21 Patient had several bowel movements overnight. She states she feels better. She is requesting some knee. On exam vital signs are stable. Abdomen soft. Incisions clean and intact. Status post repair of incarcerated incisional hernia. Patient will have her diet advanced as tolerated.
[2021-03-02 13:10] LABS: African American GFR (CKD) 95.9 (60.0-200.0); Albumin 2.6 g/dL (3.8-4.9); Albumin/Globulin Ratio 1.15 (1.60-3.17); Anion Gap 9.6 mmol/L (4.00-12.00); BUN/Creat Ratio 34.62 Ratio (12.00-20.00); Blood Urea Nitrogen 21.5 mg/dL (9.0-27.0); Calcium 8.2 mg/dL (8.7-10.3); Carbon Dioxide 29.2 mmol/L (21.6-31.8); Globulin 2.2 g/dL (1.6-3.3); Non-African American GFR(CKD) 82.8 (60.0-200.0); Total Bilirubin 0.6 mg/dL (0.30-1.20); Total Protein 4.8 g/dL (6.2-8.2)
--- NOTE | 2021-03-02 19:24 | PN ---
PROGRESS NOTE DATE OF SERVICE: 03/02/2021 This 85-year-old woman who was admitted with acute bowel obstruction, being closely monitored. No chest pain. No palpitations. No fever. PHYSICAL EXAMINATION: Alert and oriented x2. Pulse 87. Blood pressure 100/60, respirations 17, temperature 98 degrees, pulse ox 98% on 2 L. HEENT: Conjunctivae normal. Neck: No JVD. Cardiovascular: S1, S2 muffled. Respiratory: Breath sounds diminished in the bases. A few scattered rhonchi. Abdomen: Soft, nontender. Nervous system: No focal deficits. LABS: Hemoglobin 11.1. ASSESSMENT: 1. Acute bowel obstruction, possibly secondary to incarcerated incisional hernia status post surgery. 2. History of incisional hernia repair mesh as well as partial omentectomy. 3. Status post NG tube decompression with significantly dilated stomach and duodenum in the ER, preoperatively. 4. Diminished urine output. 5. Bibasilar atelectasis. 6. History of recent cholecystectomy. 7. Multiple anterior abdominal wall hernias. 8. Increased WBC. 9. Increased BUN. 10.Hyponatremia. 11.Increased random glucose. 12.Increased lactic acid. 13.Elevated lipase, normal amylase. 14.History of atrial fibrillation. 15.History of deep vein thrombosis. 16.History of gastroesophageal reflux disease. 17.History of hearing defects. 18.Hypertension. 19.Hyperlipidemia. 20.History of multiple abdominal hernias. 21.History of skin cancer. 22.History of section. 23.History of ASD repair 2012. 24.Remote history of nicotine dependence. 25.Obesity with body mass index of 34.9. 26.FULL CODE. RECOMMENDATIONS AND DISCUSSION: Continue current medications, symptomatic treatment. Otherwise at this time I recommend urine culture. Otherwise repeat labs will be ordered. Continue the current medications. Further recommendations to follow. MMODL / IJN: [id number] /
[2021-03-02] MEDS: ATORVASTATIN 10 MG TAB PO SCH (20:10)
[2021-03-03] MEDS: AMPICILLIN-SULBACTAM 1.5 GM in SODIUM CHLORIDE 0.9% 50 ML IVPB SCH ×4 (03:32→20:46)
[2021-03-03] MEDS: DEXTROSE 5% IN WATER 1,000 ML with POTASSIUM CHLORIDE 40 MEQ IV SCH ×2 (03:43→13:26)
[2021-03-03] MEDS: METOCLOPRAMIDE 5 MG/ML 2 ML VIAL IVP SCH ×4 (05:13→20:47)
[2021-03-03] MEDS: IPRATROPIUM-ALBUTEROL 3 ML NEB INHALATION SCH ×3 (07:07→19:05)
[2021-03-03] MEDS: PANTOPRAZOLE 40 MG/10 ML VIAL IV SCH (07:43)
[2021-03-03] MEDS: carvediloL 12.5 MG TAB PO SCH ×2 (07:44→17:15)
[2021-03-03] MEDS: APIXABAN 5 MG TAB PO SCH ×2 (07:44→20:47)
[2021-03-03] MEDS: FUROSEMIDE 40 MG TAB PO SCH (07:44)
[2021-03-03 10:03] LABS: Basophils % (A) 0 %; Eosinophils # (A) 0.3 k/uL (0-0.7); Eosinophils % (A) 4 %; HCT 33.9 % (34.0-46.0); HGB 10.7 gm/dL (11.4-16.0); Lymphocytes # (A) 1.2 k/uL (1.0-4.8); Lymphocytes % (A) 13 %; MCH 30.1 pg (25.0-35.0); MCHC 31.5 g/dL (31.0-37.0); MCV 95.4 fL (80.0-100.0); Mean Platelet Volume 8.8; Monocytes # (A) 0.4 k/uL (0-1.0); Monocytes % (A) 5 %; Neutrophils # (A) 6.7 k/uL (1.3-7.7); Neutrophils % (A) 77 %; Platelet Count 327 k/uL (150-450); RBC 3.55 m/uL (3.80-5.40); RDW 12.9 % (11.5-15.5); WBC 8.7 k/uL (3.8-10.6)
[2021-03-03 10:27] LABS: African American GFR (CKD) >90 (>60 ml/min/1.73 sqM); Anion Gap 3 mmol/L; Blood Urea Nitrogen 16 mg/dL (7-17); Calcium 7.9 mg/dL (8.4-10.2); Carbon Dioxide 33 mmol/L (22-30); Chloride 97 mmol/L (98-107); Glucose 113 mg/dL (74-99); Non-African American GFR(CKD) 85 (>60 ml/min/1.73 sqM); Potassium 4.1 mmol/L (3.5-5.1); Sodium 133 mmol/L (137-145)
--- NOTE | 2021-03-03 11:17 | P.PN ---
Subjective Progress Note Date: 03/03/21 CHIEF COMPLAINT: Incarcerated incisional hernias HISTORY OF PRESENT ILLNESS: Patient is postop day #5 status post repair of incarcerated incisional hernia with mesh and partial omentectomy. Patient denies abdominal pain. She sitting in bedside chair. She reports having a bowel movement a couple days ago. She is having some flatus. Denies any nausea or vomiting. Appetite is diminished. She is able to eat a few bites of her meal. She did have a low urine output over the weekend and required fluid bolus. Afebrile. Heart rate 105 WBC is 8.7 Hgb 10.7 platelets 327 sodium 133 creatinine 0.59 Patient seen and examined with Dr. amaya PHYSICAL EXAM: VITAL SIGNS: Reviewed. GENERAL: Well-developed in no acute distress. HEENT: No sclera icterus. Extraocular movements grossly intact. Moist buccal mucosa. Head is atraumatic, normocephalic. ABDOMEN: Soft. Nondistended. Incisional dressing with area of blood noted at the distal aspect of the dressing. NEUROLOGIC: Alert and oriented. Cranial nerves II through XII grossly intact. ASSESSMENT: 1. Incarcerated incisional hernia status post repair with mesh PLAN: -Continue regular diet -Discontinue Muir catheter and monitor urine output -Continue IV fluids for now -Continue IV antibiotics -Encouraged patient to increase activity level -Encouraged patient to use incentive spirometer -Possible discharge tomorrow -Social work setting up ECF placement at discharge Physician Bill Checker note has been reviewed by physician. Signing provider agrees with the documented findings, assessment, and plan of care. Objective - Vital Signs Vital signs: Vital Signs Temp 97.3 F L 03/03/21 04:49 Pulse 105 H 03/03/21 07:43 Resp 18 03/03/21 04:49 BP 115/78 03/03/21 07:43 Pulse Ox 98 03/03/21 04:49 Intake & Output 03/02/21 03/03/21 03/03/21 18:59 06:59 18:59 Intake Total 310 Output Total 1000 650 Balance -1000 -340 Weight 100.698 kg Intake: Intake, IV Titration 310 Amount Ampicillin-Sulbactam 1.5 100 gm In Sodium Chloride 0.9 % 50 ml @ 100 mls/hr IVPB Q6H [facility] Rx#:[id number] Dextrose 5% in Water 1, 210 000 ml @ 100 mls/hr IV . [id number] [facility] with Potassium Chloride 40 meq Rx#:[id number] Output: Drainage 50 Abdomen 50 Urine 1000 600 Other: Voiding Method Indwelling Catheter Indwelling Catheter Indwelling Catheter - Labs CBC & Chem 7: 03/03/21 05:36 03/03/21 05:36 Labs: Abnormal Lab Results - Last 24 Hours (Table) 03/02/21 03/03/21 03/03/21 Range/Units 07:14 05:36 05:36 RBC 3.55 L (3.80-5.40) m/uL Hgb 10.7 L (11.4-16.0) gm/dL Hct 33.9 L (34.0-46.0) % Sodium 133 L (137-145) mmol/L Chloride 97 L (98-107) mmol/L Carbon Dioxide 33 H (22-30) mmol/L BUN/Creatinine Ratio 34.62 H (12.00-20.00) Ratio Glucose 163 H 113 H (70-110) mg/dL Calcium 8.2 L 7.9 L (8.7-10.3) mg/dL Total Protein 4.8 L (6.2-8.2) g/dL Albumin 2.6 L (3.8-4.9) g/dL Albumin/Globulin Ratio 1.15 L (1.60-3.17) g/dL Microbiology - Last 24 Hours (Table) 02/26/21 08:01 Blood Culture - Preliminary Blood No Growth after 120 hours 03/01/21 17:35 Urine Culture - Preliminary Urine,Voided Yeast species 02/25/21 14:00 Blood Culture - Preliminary Blood No Growth after 120 hours 02/25/21 14:12 Blood Culture - Preliminary Blood No Growth after 120 hours
[2021-03-03] MEDS: ACETAMINOPHEN TAB 325 MG TAB PO PRN (12:26)
--- NOTE | 2021-03-03 14:35 | P.PN ---
Subjective Progress Note Date: 03/03/21 This is a pleasant 81-year-old female who presented to the hospital with complaints of abdominal pain status post cholecystectomy in February 10. Patient underwent an incarcerated hernia repair due to a bowel obstruction from postoperative ileus. 03/03/2021 Patient is evaluated today sitting up in the chair. She denies any chest pain or chest pressure, cough or shortness breath. However she reports that she is having incisional abdominal pain to the old right lower quadrant incision from her marcelo 3 weeks ago as well as to the midline incision from the hernia repair. Patient has a medical history significant for multiple hernia repairs. Patient was also diagnosed with pancreatic cancer in September 2020. Dressings noted incisions, there is no shadowing. There is a drain with sanguineous drainage from the left abdomen. She is on empiric antibiotic coverage with IV ampicillin, eliquis and Lasix have been resumed postoperatively. We did hold Lasix today as patient's sodium has dropped to 133 today. Additional labs today show a hemoglobin of 10.7, WBC 8.7, sodium 133, potassium 4.1, chloride 97, CO2 33, glucose 113. We will today show a temp of 97.5, heart rate 74 atrial fibrillation, pressure 138/77 and she is 98% oxygen saturation on 2L NC. Plan will be to return home on discharge, and will require Ellis Lift, hospital bed, wheelchair, bedside commode due to her current medical debility. Patient does require 2 person assist to transfer and ambulate, and require a Ellis lift for this in order to complete activities of daily living due to weakness in her lower extremities as well as upper extremities, otherwise patient would be primarily bedbound. In addition due to ongoing abdominal pain from surgery, medial abdominal incision as well as right lower quadrant incision, and multiple abdominal wall hernias patient will require a hospital bed for therapeutic benefits, positioning, and promoting healing. Additionally patient will require a bedside commode due to ongoing weakness and abdominal pain, combined with history of CHF this patient is on oral Lasix and will need close access to a commode, she requires 2 people to transfer and will be unable to make it to a traditional bathroom when necessary. Patient will require a wheelchair to complete ADLs which is unable to be done with a cane or a walker because of ongoing abdominal pain, generalized weakness. ROS Constitutional: Denied any fatigue denied any fever. Cardio vascular: denied any chest pain, palpitations Gastrointestinal: denied any nausea vomiting, reports incisional abdominal pain, denies diarrhea, reports passing gas Pulmonary: Denied any shortness of breath, cough Neurologic: denied any new focal deficits All inpatient medications were reviewed and appropriate changes in these medications as dictated in the interval history and assessment and plan. PHYSICAL EXAMINATION: GENERAL: The patient is alert and oriented x3, not in any acute distress. Well developed, well nourished. HEENT: Pupils are round and equally reacting to light. EOMI. No scleral icterus. No conjunctival pallor. Normocephalic, atraumatic. No pharyngeal erythema. No thyromegaly. CARDIOVASCULAR: S1 and S2 present. No murmurs, rubs, or gallops. Irregularly irregular rhythm. PULMONARY: Chest is clear to auscultation, no wheezing or crackles. ABDOMEN: Soft, tender to palpation, normoactive bowel sounds, drain present in the left abdomen. MUSCULOSKELETAL: No joint swelling or deformity. EXTREMITIES: No cyanosis, clubbing, mild ankle edema NEUROLOGICAL: Gross neurological examination did not reveal any focal deficits. SKIN: No rashes. Surgical incisions as mentioned above. Assessment and plan Assessment Acute bowel obstruction, possibly secondary to incarcerated incisional hernia status post surgery Post day #5 incarcerated abominal incisional hernia repair mesh as well as partial omentectomy Status post NG tube decompression with significantly dilated stomach and duodenum in the ER, preoperatively Bibasilar atelectasis, improving History of recent cholecystectomy with subsequent ileus Multiple anterior abdominal wall hernias Leukocytosis Hyponatremia, probably due to decreased oral intake and dehydration, hold Lasix and recheck tomorrow History of atrial fibrillation History of DVT GERD Hypertension Hyperlipidemia History of skin cancer History of pancreatic cancer in September 2020 History of nicotine dependence Remote history of chronic alcohol abuse Obesity GI Prophylaxis: Protonix DVT Prophylaxis: Reglan Full code Plan Continue with empiric antibiotics Continue with pain management Hold Lasix today Continue PT OT consultation Repeat labs in the morning Further recommendations from surgery Objective - Vital Signs Vital signs: Vital Signs Temp 97.5 F L 03/03/21 11:36 Pulse 74 03/03/21 11:36 Resp 18 03/03/21 11:36 BP 138/77 03/03/21 11:36 Pulse Ox 98 03/03/21 11:36 Intake & Output 1103/03/21 03/03/21 18:59 06:59 18:59 Intake Total 310 Output Total 1000 650 Balance -1000 -340 Weight 100.698 kg Intake: Intake, IV Titration 310 Amount Ampicillin-Sulbactam 1.5 100 gm In Sodium Chloride 0.9 % 50 ml @ 100 mls/hr IVPB Q6H [facility] Rx#:[id number] Dextrose 5% in Water 1, 210 000 ml @ 100 mls/hr IV . [id number] [facility] with Potassium Chloride 40 meq Rx#:[id number] Output: Drainage 50 Abdomen 50 Urine 1000 600 Other: Voiding Method Indwelling Catheter Indwelling Catheter Indwelling Catheter - Labs CBC & Chem 7: 03/03/21 05:36 03/03/21 05:36 Labs: Abnormal Lab Results - Last 24 Hours (Table) 03/03/21 03/03/21 Range/Units 05:36 05:36 RBC 3.55 L (3.80-5.40) m/uL Hgb 10.7 L (11.4-16.0) gm/dL Hct 33.9 L (34.0-46.0) % Sodium 133 L (137-145) mmol/L Chloride 97 L (98-107) mmol/L Carbon Dioxide 33 H (22-30) mmol/L Glucose 113 H (74-99) mg/dL Calcium 7.9 L (8.4-10.2) mg/dL Microbiology - Last 24 Hours (Table) 02/26/21 08:01 Blood Culture - Preliminary Blood No Growth after 120 hours 03/01/21 17:35 Urine Culture - Preliminary Urine,Voided Yeast species 02/25/21 14:00 Blood Culture - Preliminary Blood No Growth after 120 hours 02/25/21 14:12 Blood Culture - Preliminary Blood No Growth after 120 hours Assessment and Plan Time with Patient: Greater than 30
[2021-03-03] MEDS: ATORVASTATIN 10 MG TAB PO SCH (20:47)
[2021-03-03] MEDS: HYDROmorphone 1 MG/ML 1 ML SYRINGE IVP PRN (22:21)
[2021-03-04] MEDS: DEXTROSE 5% IN WATER 1,000 ML with POTASSIUM CHLORIDE 40 MEQ IV SCH ×2 (04:15→12:52)
[2021-03-04] MEDS: AMPICILLIN-SULBACTAM 1.5 GM in SODIUM CHLORIDE 0.9% 50 ML IVPB SCH ×4 (04:15→20:08)
[2021-03-04] MEDS: METOCLOPRAMIDE 5 MG/ML 2 ML VIAL IVP SCH ×4 (05:33→20:08)
[2021-03-04 06:01] LABS: Basophils % (A) 0 %; Eosinophils # (A) 0.3 k/uL (0-0.7); Eosinophils % (A) 3 %; HCT 35.6 % (34.0-46.0); HGB 11.4 gm/dL (11.4-16.0); Lymphocytes # (A) 1.2 k/uL (1.0-4.8); Lymphocytes % (A) 12 %; MCH 30.3 pg (25.0-35.0); MCV 94.9 fL (80.0-100.0); Mean Platelet Volume 8.4; Monocytes # (A) 0.5 k/uL (0-1.0); Monocytes % (A) 5 %; Neutrophils # (A) 7.6 k/uL (1.3-7.7); Neutrophils % (A) 78 %; Platelet Count 349 k/uL (150-450); RBC 3.75 m/uL (3.80-5.40); WBC 9.7 k/uL (3.8-10.6)
[2021-03-04] MEDS: IPRATROPIUM-ALBUTEROL 3 ML NEB INHALATION SCH ×3 (07:24→19:30)
[2021-03-04] MEDS: carvediloL 12.5 MG TAB PO SCH ×2 (07:50→17:30)
[2021-03-04] MEDS: PANTOPRAZOLE 40 MG/10 ML VIAL IV SCH (07:50)
[2021-03-04] MEDS: APIXABAN 5 MG TAB PO SCH ×2 (07:50→20:08)
[2021-03-04] MEDS: FLUCONAZOLE 100 MG TAB PO SCH (07:51)
[2021-03-04 09:59] LABS: Anion Gap 9.3 mmol/L (4.00-12.00); Blood Urea Nitrogen 11.4 mg/dL (9.0-27.0); Calcium 8.3 mg/dL (8.7-10.3); Carbon Dioxide 32.7 mmol/L (21.6-31.8); Non-African American GFR(CKD) 83.7 (60.0-200.0)
[2021-03-04] MEDS ORDERED: traMADol 50 MG TAB PO PRN ×2 (12:45→12:48)
--- NOTE | 2021-03-04 12:55 | P.PN ---
Subjective Progress Note Date: 03/04/21 CHIEF COMPLAINT: Incarcerated incisional hernias HISTORY OF PRESENT ILLNESS: Patient is postop day #6 status post repair of incarcerated incisional hernia with mesh and partial omentectomy. Patient lying in bed comfortably. She did require IV pain medications through the night. She is tolerating diet. She did have a bowel movement a couple days ago. She is flatus. Afebrile. WBC is 9.7 Hgb 11.4 platelets 349 Patient seen and examined with Dr. amaya PHYSICAL EXAM: VITAL SIGNS: Reviewed. GENERAL: Well-developed in no acute distress. HEENT: No sclera icterus. Extraocular movements grossly intact. Moist buccal mucosa. Head is atraumatic, normocephalic. ABDOMEN: Soft. Nondistended. Incisional dressing with area of blood noted at the distal aspect of the dressing. FEI drain with serosanguineous output NEUROLOGIC: Alert and oriented. Cranial nerves II through XII grossly intact. ASSESSMENT: 1. Incarcerated incisional hernia status post repair with mesh PLAN: -Continue regular diet -Dressing change by nursing staff -Add Ultram for pain control -Continue antibiotics -Encouraged patient to increase activity level -Encouraged patient to use incentive spirometer -Possible discharge tomorrow -Social work setting up ECF placement at discharge Physician Director Of Digital [employer] note has been reviewed by physician. Signing provider agrees with the documented findings, assessment, and plan of care. Objective - Vital Signs Vital signs: Vital Signs Temp 97.7 F 03/04/21 11:28 Pulse 61 03/04/21 11:28 Resp 16 03/04/21 11:28 BP 122/79 03/04/21 11:28 Pulse Ox 98 03/04/21 11:28 Intake & Output 03/03/21 03/04/21 03/04/21 18:59 06:59 18:59 Intake Total 1300 100 Output Total 910 10 Balance 390 90 Weight 100.698 kg Intake: Intake, IV Titration 1300 100 Amount Ampicillin-Sulbactam 1.5 100 100 gm In Sodium Chloride 0.9 % 50 ml @ 100 mls/hr IVPB Q6H [facility] Rx#:[id number] Dextrose 5% in Water 1, 1200 000 ml @ 100 mls/hr IV . [id number] [facility] with Potassium Chloride 40 meq Rx#:[id number] Output: Drainage 10 10 Abdomen 10 10 Urine 900 Uretheral (Muir) 300 Other: Voiding Method Indwelling Catheter Indwelling Catheter # Voids 1 1 - Labs CBC & Chem 7: 03/04/21 04:46 03/04/21 04:46 Labs: Abnormal Lab Results - Last 24 Hours (Table) 03/04/21 03/04/21 Range/Units 04:46 04:46 RBC 3.75 L (3.80-5.40) m/uL Carbon Dioxide 32.7 H (21.6-31.8) mmol/L Glucose 119 H (70-110) mg/dL Calcium 8.3 L (8.7-10.3) mg/dL Microbiology - Last 24 Hours (Table) 02/26/21 08:01 Blood Culture - Final Blood No Growth after 144 hours 03/01/21 17:35 Urine Culture - Final Urine,Voided Sherin sp,not albicans/galbr 02/25/21 14:00 Blood Culture - Final Blood No Growth after 144 hours 02/25/21 14:12 Blood Culture - Final Blood No Growth after 144 hours
--- NOTE | 2021-03-04 14:53 | P.PN ---
Subjective Progress Note Date: 03/04/21 This is a pleasant 81-year-old female who presented to the hospital with complaints of abdominal pain status post cholecystectomy in February 10. Patient underwent an incarcerated hernia repair due to a bowel obstruction from postoperative ileus. 03/03/2021 Patient is evaluated today sitting up in the chair. She denies any chest pain or chest pressure, cough or shortness breath. However she reports that she is having incisional abdominal pain to the old right lower quadrant incision from her marcelo 3 weeks ago as well as to the midline incision from the hernia repair. Patient has a medical history significant for multiple hernia repairs. Patient was also diagnosed with pancreatic cancer in September 2020. Dressings noted incisions, there is no shadowing. There is a drain with sanguineous drainage from the left abdomen. She is on empiric antibiotic coverage with IV ampicillin, eliquis and Lasix have been resumed postoperatively. We did hold Lasix today as patient's sodium has dropped to 133 today. Additional labs today show a hemoglobin of 10.7, WBC 8.7, sodium 133, potassium 4.1, chloride 97, CO2 33, glucose 113. We will today show a temp of 97.5, heart rate 74 atrial fibrillation, pressure 138/77 and she is 98% oxygen saturation on 2L NC. Plan will be to return home on discharge, and will require Ellis Lift, hospital bed, wheelchair, bedside commode due to her current medical debility. Patient does require 2 person assist to transfer and ambulate, and require a Ellis lift for this in order to complete activities of daily living due to weakness in her lower extremities as well as upper extremities, otherwise patient would be primarily bedbound. In addition due to ongoing abdominal pain from surgery, medial abdominal incision as well as right lower quadrant incision, and multiple abdominal wall hernias patient will require a hospital bed for therapeutic benefits, positioning, and promoting healing. Additionally patient will require a bedside commode due to ongoing weakness and abdominal pain, combined with history of CHF this patient is on oral Lasix and will need close access to a commode, she requires 2 people to transfer and will be unable to make it to a traditional bathroom when necessary. Patient will require a wheelchair to complete ADLs which is unable to be done with a cane or a walker because of ongoing abdominal pain, generalized weakness, she does have help at home to propel her in the wheelchair. 11/23/201 Patient evaluated resting the bed. She is postop day #6 repair of incarcerated incisional hernia with mesh and partial omentectomy. She still has a drain present. She is denying any nausea vomiting. She reports mild 3 out of 10 abdominal pain diffuse in nature, receiving Tylenol for this, and had IV pain medication throughout the evening. Ultram was added by surgical team today. She states that she has not had a bowel movement since before surgery. She is passing gas though. Labs today show white count 9.7, hemoglobin 11.4, sodium 139, CO2 32.7, sugars in the 110s, calcium 8.3. Vital signs are stable today, temp 97.7, pulse ox 61 sinus rhythm, blood pressure 122/79, 98% room air. Urine culture positive for Sherin species, Diflucan daily was added. Patient cleared medically for discharge to rehab. ROS Constitutional: Denied any fatigue denied any fever. Cardio vascular: denied any chest pain, palpitations Gastrointestinal: denied any nausea vomiting, reports incisional abdominal pain, denies diarrhea, reports passing gas, no BM. Pulmonary: Denied any shortness of breath, cough Neurologic: denied any new focal deficits All inpatient medications were reviewed and appropriate changes in these medications as dictated in the interval history and assessment and plan. PHYSICAL EXAMINATION: GENERAL: The patient is alert and oriented x3, not in any acute distress. Well developed, well nourished. HEENT: Pupils are round and equally reacting to light. EOMI. No scleral icterus. No conjunctival pallor. Normocephalic, atraumatic. No pharyngeal erythema. No thyromegaly. CARDIOVASCULAR: S1 and S2 present. No murmurs, rubs, or gallops. Irregularly irregular rhythm. PULMONARY: Chest is clear to auscultation, no wheezing or crackles. ABDOMEN: Soft, tender to palpation, normoactive bowel sounds, drain present in the left abdomen. MUSCULOSKELETAL: No joint swelling or deformity. EXTREMITIES: No cyanosis, clubbing, mild ankle edema NEUROLOGICAL: Gross neurological examination did not reveal any focal deficits. SKIN: No rashes. Surgical incisions as mentioned above. Assessment and plan Assessment Acute bowel obstruction possible due to incarcerated incisional hernia Post day #6 incarcerated abominal incisional hernia repair with mesh as well as partial omentectomy Status post NG tube decompression with significantly dilated stomach and duodenum in the ER, preoperatively Bibasilar atelectasis, improving History of recent cholecystectomy with subsequent ileus Multiple anterior abdominal wall hernias Leukocytosis Hyponatremia, probably due to decreased oral intake and dehydration, resolved History of atrial fibrillation History of DVT GERD Hypertension Hyperlipidemia History of skin cancer History of pancreatic cancer in September 2020 History of nicotine dependence Remote history of chronic alcohol abuse Obesity GI Prophylaxis: Protonix DVT Prophylaxis: Reglan Full code Plan Continue with empiric antibiotics Continue with pain management Will resume lasix tomorrow Encourage ambulation, Encourage IS Continue PT OT consultation Repeat labs in the morning Possible discharge to rehab tomorrow Objective - Vital Signs Vital signs: Vital Signs Temp 97.7 F 03/04/21 11:28 Pulse 61 03/04/21 11:28 Resp 16 03/04/21 11:28 BP 122/79 03/04/21 11:28 Pulse Ox 98 03/04/21 11:28 Intake & Output 03/03/21 03/04/21 03/04/21 18:59 06:59 18:59 Intake Total 1300 100 Output Total 910 10 20 Balance 390 90 -20 Weight 100.698 kg Intake: Intake, IV Titration 1300 100 Amount Ampicillin-Sulbactam 1.5 100 100 gm In Sodium Chloride 0.9 % 50 ml @ 100 mls/hr IVPB Q6H [facility] Rx#:[id number] Dextrose 5% in Water 1, 1200 000 ml @ 100 mls/hr IV . [id number] [facility] with Potassium Chloride 40 meq Rx#:[id number] Output: Drainage 10 10 20 Abdomen 10 10 20 Urine 900 Uretheral (Muir) 300 Other: Voiding Method Indwelling Catheter Indwelling Catheter Bedpan # Voids 1 1 - Labs CBC & Chem 7: 03/04/21 04:46 03/04/21 04:46 Labs: Abnormal Lab Results - Last 24 Hours (Table) 03/04/21 03/04/21 Range/Units 04:46 04:46 RBC 3.75 L (3.80-5.40) m/uL Carbon Dioxide 32.7 H (21.6-31.8) mmol/L Glucose 119 H (70-110) mg/dL Calcium 8.3 L (8.7-10.3) mg/dL Microbiology - Last 24 Hours (Table) 02/26/21 08:01 Blood Culture - Final Blood No Growth after 144 hours 03/01/21 17:35 Urine Culture - Final Urine,Voided Sherin sp,not albicans/galbr 02/25/21 14:00 Blood Culture - Final Blood No Growth after 144 hours 02/25/21 14:12 Blood Culture - Final Blood No Growth after 144 hours Assessment and Plan Time with Patient: Greater than 30
[2021-03-04] MEDS: HYDROmorphone 1 MG/ML 1 ML SYRINGE IVP PRN (20:09)
[2021-03-04] MEDS: ATORVASTATIN 10 MG TAB PO SCH (20:09)
[2021-03-05] MEDS: DEXTROSE 5% IN WATER 1,000 ML with POTASSIUM CHLORIDE 40 MEQ IV SCH ×2 (00:25→07:14)
[2021-03-05] MEDS: AMPICILLIN-SULBACTAM 1.5 GM in SODIUM CHLORIDE 0.9% 50 ML IVPB SCH ×2 (02:15→07:15)
[2021-03-05] MEDS: METOCLOPRAMIDE 5 MG/ML 2 ML VIAL IVP SCH ×2 (05:25→11:51)
[2021-03-05] MEDS: IPRATROPIUM-ALBUTEROL 3 ML NEB INHALATION SCH ×2 (07:05→11:04)
[2021-03-05] MEDS: APIXABAN 5 MG TAB PO SCH (07:15)
[2021-03-05] MEDS: PANTOPRAZOLE 40 MG/10 ML VIAL IV SCH (07:15)
[2021-03-05] MEDS: carvediloL 12.5 MG TAB PO SCH (07:15)
[2021-03-05] MEDS: FLUCONAZOLE 100 MG TAB PO SCH (07:16)
[2021-03-05 10:10] LABS: African American GFR (CKD) 97.5 (60.0-200.0); Anion Gap 11.5 mmol/L (10.00-18.00); BUN/Creat Ratio 15.18 Ratio (12.00-20.00); Calcium 8.3 mg/dL (8.7-10.3); Carbon Dioxide 27.3 mmol/L (20.0-27.5); Non-African American GFR(CKD) 84.1 (60.0-200.0); Potassium 4.7 mmol/L (3.5-5.5)
--- NOTE | 2021-03-05 11:16 | P.PN ---
Progress Note - Text Progress Note Date: 03/05/21 Patient is doing well. She wants to go home. On exam vital signs are stable. Abdomen is soft. Incision is clean dry tach. Status post repair of large incisional hernia. Patient was discharged home today. She'll follow-up in one week.
[2021-03-05 11:33] VITALS: BP 118/90; PULSE 95; RESP 16; TEMP 97.9
--- NOTE | 2021-03-05 13:49 | P.PN ---
Subjective Progress Note Date: 03/05/21 This is a pleasant 81-year-old female who presented to the hospital with complaints of abdominal pain status post cholecystectomy in February 10. Patient underwent an incarcerated hernia repair due to a bowel obstruction from postoperative ileus. 03/03/2021 Patient is evaluated today sitting up in the chair. She denies any chest pain or chest pressure, cough or shortness breath. However she reports that she is having incisional abdominal pain to the old right lower quadrant incision from her marcelo 3 weeks ago as well as to the midline incision from the hernia repair. Patient has a medical history significant for multiple hernia repairs. Patient was also diagnosed with pancreatic cancer in September 2020. Dressings noted incisions, there is no shadowing. There is a drain with sanguineous drainage from the left abdomen. She is on empiric antibiotic coverage with IV ampicillin, eliquis and Lasix have been resumed postoperatively. We did hold Lasix today as patient's sodium has dropped to 133 today. Additional labs today show a hemoglobin of 10.7, WBC 8.7, sodium 133, potassium 4.1, chloride 97, CO2 33, glucose 113. We will today show a temp of 97.5, heart rate 74 atrial fibrillation, pressure 138/77 and she is 98% oxygen saturation on 2L NC. Plan will be to return home on discharge, and will require Ellis Lift, hospital bed, wheelchair, bedside commode due to her current medical debility. Patient does require 2 person assist to transfer and ambulate, and require a Ellis lift for this in order to complete activities of daily living due to weakness in her lower extremities as well as upper extremities, otherwise patient would be primarily bedbound. In addition due to ongoing abdominal pain from surgery, medial abdominal incision as well as right lower quadrant incision, and multiple abdominal wall hernias patient will require a hospital bed for therapeutic benefits, positioning, and promoting healing. Additionally patient will require a bedside commode due to ongoing weakness and abdominal pain, combined with history of CHF this patient is on oral Lasix and will need close access to a commode, she requires 2 people to transfer and will be unable to make it to a traditional bathroom when necessary. Patient will require a wheelchair to complete ADLs which is unable to be done with a cane or a walker because of ongoing abdominal pain, generalized weakness, she does have help at home to propel her in the wheelchair. 11/23/201 Patient evaluated resting the bed. She is postop day #6 repair of incarcerated incisional hernia with mesh and partial omentectomy. She still has a drain present. She is denying any nausea vomiting. She reports mild 3 out of 10 abdominal pain diffuse in nature, receiving Tylenol for this, and had IV pain medication throughout the evening. Ultram was added by surgical team today. She states that she has not had a bowel movement since before surgery. She is passing gas though. Labs today show white count 9.7, hemoglobin 11.4, sodium 139, CO2 32.7, sugars in the 110s, calcium 8.3. Vital signs are stable today, temp 97.7, pulse ox 61 sinus rhythm, blood pressure 122/79, 98% room air. Urine culture positive for Sherin species, Diflucan daily was added. Patient cleared medically for discharge to rehab. 03/05/2021 Patient is evaluated today working with RN and aide to get to the chair. Patient did well with her walker was mostly a standby assist. Patient did require some oxygen throughout the evening for some wheezing per nursing staff. However, assessment there was no wheezing noted and patient was able to cough and nasal cannula saturation 94-95%. We did stop IV fluids. Patient an echocardiogram done this admission which showed an EF of 55-60%. Vital signs today show a blood pressure of 139/80, heart rate 74 sinus rhythm, afebrile. Chest x-ray sodium of 139, potassium 5, we will recheck his outpatient couple days. Patient will return home with her son who will assist with her ADLs. When stable from surgery patient can be discharged home. ROS Constitutional: Denied any fatigue denied any fever. Cardio vascular: denied any chest pain, palpitations Gastrointestinal: denied any nausea vomiting, reports incisional abdominal pain, denies diarrhea, reports passing gas, no BM. Pulmonary: Denied any shortness of breath, cough Neurologic: denied any new focal deficits All inpatient medications were reviewed and appropriate changes in these medications as dictated in the interval history and assessment and plan. PHYSICAL EXAMINATION: GENERAL: The patient is alert and oriented x3, not in any acute distress. Well developed, well nourished. HEENT: Pupils are round and equally reacting to light. EOMI. No scleral icterus. No conjunctival pallor. Normocephalic, atraumatic. No pharyngeal erythema. No thyromegaly. CARDIOVASCULAR: S1 and S2 present. No murmurs, rubs, or gallops. Irregularly irregular rhythm. PULMONARY: Chest is clear to auscultation, no wheezing or crackles. ABDOMEN: Soft, tender to palpation, normoactive bowel sounds, drain present in the left abdomen. MUSCULOSKELETAL: No joint swelling or deformity. EXTREMITIES: No cyanosis, clubbing, mild ankle edema NEUROLOGICAL: Gross neurological examination did not reveal any focal deficits. SKIN: No rashes. Surgical incisions as mentioned above. Assessment and plan Assessment Acute bowel obstruction possible due to incarcerated incisional hernia Post day #7 incarcerated abominal incisional hernia repair with mesh as well as partial omentectomy Status post NG tube decompression with significantly dilated stomach and duodenum in the ER, preoperatively Bibasilar atelectasis, improving History of recent cholecystectomy with subsequent ileus Multiple anterior abdominal wall hernias Leukocytosis Hyponatremia, probably due to decreased oral intake and dehydration, resolved History of atrial fibrillation History of DVT GERD Hypertension Hyperlipidemia History of skin cancer History of pancreatic cancer in September 2020 History of nicotine dependence Remote history of chronic alcohol abuse Obesity GI Prophylaxis: Protonix DVT Prophylaxis: Reglan Full code Plan Continue with pain management Resume home lasix on discharge Encourage ambulation, Encourage IS Cleared medically for discharge Objective - Vital Signs Vital signs: Vital Signs Temp 97.8 F 03/05/21 04:29 Pulse 83 03/05/21 11:07 Resp 18 03/05/21 04:29 BP 139/80 03/05/21 04:29 Pulse Ox 97 03/05/21 07:05 Intake & Output 03/04/21 03/05/21 03/05/21 18:59 06:59 18:59 Intake Total 1200 Output Total 20 330 Balance 1180 -330 Intake: Intake, IV Titration 1200 Amount Ampicillin-Sulbactam 1.5 100 gm In Sodium Chloride 0.9 % 50 ml @ 100 mls/hr IVPB Q6H EDILMA Rx#:[id number] Dextrose 5% in Water 1, 1100 000 ml @ 100 mls/hr IV . [id number] EDILMA with Potassium Chloride 40 meq Rx#:[id number] Output: Drainage 20 330 Abdomen 20 330 Other: Voiding Method Bedpan Bedpan Bedpan # Voids 5 3 - Labs CBC & Chem 7: 03/04/21 04:46 03/05/21 05:29 Labs: Abnormal Lab Results - Last 24 Hours (Table) 03/05/21 Range/Units 05:29 Glucose 131 H (70-110) mg/dL Calcium 8.3 L (8.7-10.3) mg/dL Microbiology - Last 24 Hours (Table) 02/26/21 08:01 Blood Culture - Final Blood No Growth after 144 hours Assessment and Plan Time with Patient: Greater than 30
== END 2021-03-05 14:12 | disposition home health service (06) | DRG 354 ==
LOC: EC 11:42 → 5NMEDONC 13:42
PROVIDERS: ADMIT Surgery; ATTEND Surgery
PROC: 0DBU0ZZ Excision of Omentum, Open Approach (ICD-10-PCS; principal; 2021-02-26 08:30)
PROC: 0WUF0JZ Supplement Abdominal Wall with Synthetic Substitute, Open Approach (ICD-10-PCS; principal; 2021-02-26 08:30)
DX: K43.0 Incisional hernia with obstruction, without gangrene (principal); E87.0 Hyperosmolality and hypernatremia; E87.1 Hypo-osmolality and hyponatremia; C25.9 Malignant neoplasm of pancreas, unspecified; E66.9 Obesity, unspecified; Z68.34 Body mass index [BMI] 34.0-34.9, adult; D72.829 Elevated white blood cell count, unspecified; E78.5 Hyperlipidemia, unspecified; E86.0 Dehydration; E87.6 Hypokalemia; H91.90 Unspecified hearing loss, unspecified ear; I11.0 Hypertensive heart disease with heart failure; I48.0 Paroxysmal atrial fibrillation; I50.9 Heart failure, unspecified; K21.9 Gastro-esophageal reflux disease without esophagitis; Z90.49 Acquired absence of other specified parts of digestive tract; Z86.718 Personal history of other venous thrombosis and embolism; Z87.891 Personal history of nicotine dependence; Z85.828 Personal history of other malignant neoplasm of skin; Z80.3 Family history of malignant neoplasm of breast; Z82.3 Family history of stroke; Z87.74 Personal history of (corrected) congenital malformations of heart and circulatory system; Z79.899 Other long term (current) drug therapy; Z79.01 Long term (current) use of anticoagulants
CPT/HCPCS: 36415; 71045; 74018; 74177; 80048; 80053; 81001; 82150; 83605; 83690; 83735; 85025; 85610; 85730; 86850; 86900; 86901; 87040; 87086; 88305; 93005; 93306; 94640; 94760; 96361; 96374; 96375; 99291

== ENCOUNTER 2021-09-27 21:13 | Emergency (ER) | payer MEDICARE, OTHER ==
[2021-09-27] MEDS ORDERED: SODIUM CHLORIDE 0.9% 1,000 ML IV STA (21:23)
[2021-09-27 21:31] VITALS: RESP 19; TEMP 99.2
[2021-09-27 22:00] LABS: Basophils # (A) 0.1 k/uL (0-0.2); Basophils % (A) 0 %; Eosinophils # (A) 0.1 k/uL (0-0.7); Eosinophils % (A) 0 %; HCT 34.2 % (34.0-46.0); HGB 11.4 gm/dL (11.4-16.0); Lymphocytes # (A) 0.4 k/uL (1.0-4.8); Lymphocytes % (A) 3 %; MCHC 33.4 g/dL (31.0-37.0); MCV 92.8 fL (80.0-100.0); Mean Platelet Volume 10.2; Monocytes # (A) 0.5 k/uL (0-1.0); Monocytes % (A) 3 %; Neutrophils # (A) 12.6 k/uL (1.3-7.7); Neutrophils % (A) 92 %; Platelet Count 203 k/uL (150-450); RBC 3.69 m/uL (3.80-5.40); RDW 13.5 % (11.5-15.5); WBC 13.7 k/uL (3.8-10.6)
[2021-09-27 22:11] LABS: Albumin 3.4 g/dL (3.5-5.0); Calcium 8.6 mg/dL (8.4-10.2); Potassium 4.4 mmol/L (3.5-5.1); Total Bilirubin 10.8 mg/dL (0.2-1.3); Total Protein 7.1 g/dL (6.3-8.2)
[2021-09-27 22:13] LABS: Lactic Acid, Venous 1.9 mmol/L (0.7-2.0)
--- NOTE | 2021-09-27 22:13 | XR ---
EXAMINATION TYPE: XR KUB DATE OF EXAM: 09/27/2021 COMPARISON: 02/25/2021 HISTORY: Abnormal pain TECHNIQUE: FINDINGS: There is no sign of intestinal obstruction or pneumoperitoneum. Fecal pattern is normal. No evidence of a mass. No pathologic calcifications over the kidneys. There is previous surgery in the right mid abdomen. IMPRESSION: Nonacute abdomen. There is clearing of the dilated stomach compared to old exam.
--- NOTE | 2021-09-27 22:27 | ED ---
General Adult HPI - General Chief complaint: Nausea/Vomiting/Diarrhea Stated complaint: nausea, vomiting Time Seen by Provider: 09/27/21 21:23 Source: patient, EMS Mode of arrival: EMS - History of Present Illness Initial comments: Nette is an 86 yo F who is brought to the emergency department today by ambulance. Daughter reports that the patient has not been eating or drinking well for about a week, she's had intermittent episodes of nausea and vomiting. Daughter reports that she went to her house to check on her yesterday and found her standing at her walker she seemed completely altered and confused. She was able to assist her in walking from the bathroom where she was standing to her couch, daughter states it took approximately half an hour to walk 30 feet. Once the patient sat down and relax she seemed much more alert and oriented. Apparently she woke up again around 3 AM and her other daughter whom she lives with felt like she was altered again and called EMS. Upon EMS arrival the patient was more alert and declined transport to the hospital. Today family noticed that she is profoundly jaundiced which is apparently new for her from yesterday. She is also more altered and family decided to have her brought back to the hospital today. - Related Data Home Medications Medication Instructions Recorded Confirmed Apixaban [Eliquis] 5 mg PO BID 09/18/19 02/25/21 Ascorbic Acid [Vitamin C] 500 mg PO HS 09/18/19 02/25/21 Atorvastatin [Lipitor] 10 mg PO HS@199909/18/19 02/25/21 Cholecalciferol [Vitamin D3 (25 25 mcg PO HS 09/18/19 02/25/21 Mcg = 1000 Iu)] Famotidine [Pepcid] 20 mg PO BID 09/18/19 02/25/21 Furosemide [Lasix] 40 mg PO DAILY 09/18/19 02/25/21 Docusate Sodium [Dok] 200 mg PO DAILY PRN 02/07/21 02/25/21 Multivitamins, Thera [Multivitamin 1 tab PO DAILY 02/07/21 02/25/21 (formulary)] Acetaminophen Tab [Tylenol] 650 mg PO Q6HR PRN 02/25/21 02/25/21 Omeprazole 20 mg PO DAILY 02/25/21 02/25/21 Promethazine HCl 12.5 mg PO Q6H PRN 02/25/21 02/25/21 Vitamin E (Dl,Tocopheryl Acet) 400 unit PO DAILY 02/25/21 02/25/21 [Vitamin E (400 Iu = 180 mg)] carvediloL [Coreg*] 12.5 mg PO BID 02/25/21 02/25/21 Previous Rx's Medication Instructions Recorded Losartan [Cozaar] 50 mg PO DAILY tab 09/21/19 traMADol HCL [Ultram] 50 mg PO Q6HR PRN 3 Days #12 tab 03/04/21 Fluconazole [Diflucan] 100 mg PO DAILY #3 tablet 03/05/21 Allergies Allergy/AdvReac Type Severity Reaction Status Date / Time hydrocodone [From Vicodin] AdvReac Intermediate Unknown Verified 09/27/21 21:31 Review of Systems ROS Statement: Those systems with pertinent positive or pertinent negative responses have been documented in the HPI. ROS Other: All systems not noted in ROS Statement are negative. Past Medical History Past Medical History: Atrial Fibrillation, Cancer, Deep Vein Thrombosis (DVT), GERD/Reflux, Hearing Disorder / Deafness, Hyperlipidemia, Hypertension Additional Past Medical History / Comment(s): Hx multiple abdominal hernias, current umb hernia. Hx skin cancer. Edema BLE, varicose veins (hx cellulitis). History of Any Multi-Drug Resistant Organisms: None Reported Past Surgical History: Section, Cholecystectomy, Hernia Repair Additional Past Surgical History / Comment(s): Open Cholecystectomy on 02/10/21. Cancer exc from skin of breast; "blood clot removal" from leg. Past Anesthesia/Blood Transfusion Reactions: No Reported Reaction Past Psychological History: No Psychological Hx Reported Smoking Status: Former smoker Past Alcohol Use History: None Reported Past Drug Use History: None Reported - Past Family History Mother Family Medical History: CVA/TIA Additional Family Medical History / Comment(s): Pt. states mother at 52 from a stroke Father Additional Family Medical History / Comment(s): Father at age 57 from a motor vehicle accident. Sister(s) Family Medical History: Cancer Additional Family Medical History / Comment(s): The patient has 2 sisters, 1 s ister has from breast cancer and one is alive with no major medical problems. Patient does not have any brothers. Patient has 4 children with no major medical problems. Son(s) Family Medical History: Deep Vein Thrombosis (DVT) General Exam - General Exam Comments Initial Comments: Physical Exam GENERAL: Ill appearing, jaundiced HENT: Normocephalic, Atraumatic. EYES: Scleral icterus PERRL, EOMI PULMONARY: Unlabored respirations. CARDIOVASCULAR: Irregular ABDOMEN: Soft and nontender with normal bowel sounds. Multiple healed surgical scars SKIN: Jaundice : Deferred NEUROLOGIC: Patient is alert and oriented to self MUSCULOSKELETAL: 3+ pitting edema bilateral lower extremities PSYCHIATRIC: Unable to assess Course Vital Signs 09/27/21 21:26 Temperature 99.2 F Pulse Rate 109 H Respiratory 19 Rate Blood Pressure 96/53 O2 Sat by Pulse 95 Oximetry EKG Findings - EKG Comments: EKG Findings:: EKG was obtained at 2124 rate is 94 rhythm is narrow complex irregularly irregular consistent with an atrial fibrillation. No ST elevations or depressions, right bundle-branch block present. Medical Decision Making - Medical Decision Making Pt seen, imaging ordered Labs with no abnormalities including bilirubin of 10.8, transaminitis, mild leukocytosis and anemia Computed tomography scan confirms a common bile duct stone with common bile duct measuring 2 cm GI not available at our facility today Results were discussed with the patient's daughter bedside who is POA she is agreeable to transfer for intervention Zosyn was ordered for antibiotic coverage Pt care was discussed with Dr. Cortés @ [facility] who accepts transfer to ER - Lab Data Result diagrams: 09/27/21 21:32 09/27/21 21:32 Lab Results 09/27/21 09/27/21 09/27/21 Range/Units 21:32 21:32 21:32 WBC 13.7 H (3.8-10.6) k/uL RBC 3.69 L (3.80-5.40) m/uL Hgb 11.4 (11.4-16.0) gm/dL Hct 34.2 (34.0-46.0) % MCV 92.8 (80.0-100.0) fL MCH 31.0 (25.0-35.0) pg MCHC 33.4 (31.0-37.0) g/dL RDW 13.5 (11.5-15.5) % Plt Count 203 (150-450) k/uL MPV 10.2 Neutrophils % 92 % Lymphocytes % 3 % Monocytes % 3 % Eosinophils % 0 % Basophils % 0 % Neutrophils # 12.6 H (1.3-7.7) k/uL Lymphocytes # 0.4 L (1.0-4.8) k/uL Monocytes # 0.5 (0-1.0) k/uL Eosinophils # 0.1 (0-0.7) k/uL Basophils # 0.1 (0-0.2) k/uL PT (9.0-12.0) sec INR (<1.2) APTT (22.0-30.0) sec Sodium 133 L (137-145) mmol/L Potassium 4.4 (3.5-5.1) mmol/L Chloride 97 L (98-107) mmol/L Carbon Dioxide 25 (22-30) mmol/L Anion Gap 11 mmol/L BUN 45 H (7-17) mg/dL Creatinine 1.00 (0.52-1.04) mg/dL Est GFR (CKD-EPI)AfAm 60 (>60 ml/min/1.73 sqM) Est GFR (CKD-EPI)NonAf 52 (>60 ml/min/1.73 sqM) Glucose 145 H (74-99) mg/dL Plasma Lactic Acid Edgar 1.9 (0.7-2.0) mmol/L Calcium 8.6 (8.4-10.2) mg/dL Total Bilirubin 10.8 H (0.2-1.3) mg/dL AST 65 H (14-36) U/L ALT 76 H (4-34) U/L Alkaline Phosphatase 287 H (38-126) U/L Ammonia 23 (<30) umol/L Total Protein 7.1 (6.3-8.2) g/dL Albumin 3.4 L (3.5-5.0) g/dL Lipase 169 (23-300) U/L 09/27/21 Range/Units 21:32 WBC (3.8-10.6) k/uL RBC (3.80-5.40) m/uL Hgb (11.4-16.0) gm/dL Hct (34.0-46.0) % MCV (80.0-100.0) fL MCH (25.0-35.0) pg MCHC (31.0-37.0) g/dL RDW (11.5-15.5) % Plt Count (150-450) k/uL MPV Neutrophils % % Lymphocytes % % Monocytes % % Eosinophils % % Basophils % % Neutrophils # (1.3-7.7) k/uL Lymphocytes # (1.0-4.8) k/uL Monocytes # (0-1.0) k/uL Eosinophils # (0-0.7) k/uL Basophils # (0-0.2) k/uL PT 13.7 H (9.0-12.0) sec INR 1.3 H (<1.2) APTT 31.2 H (22.0-30.0) sec Sodium (137-145) mmol/L Potassium (3.5-5.1) mmol/L Chloride (98-107) mmol/L Carbon Dioxide (22-30) mmol/L Anion Gap mmol/L BUN (7-17) mg/dL Creatinine (0.52-1.04) mg/dL Est GFR (CKD-EPI)AfAm (>60 ml/min/1.73 sqM) Est GFR (CKD-EPI)NonAf (>60 ml/min/1.73 sqM) Glucose (74-99) mg/dL Plasma Lactic Acid Edgar (0.7-2.0) mmol/L Calcium (8.4-10.2) mg/dL Total Bilirubin (0.2-1.3) mg/dL AST (14-36) U/L ALT (4-34) U/L Alkaline Phosphatase (38-126) U/L Ammonia (<30) umol/L Total Protein (6.3-8.2) g/dL Albumin (3.5-5.0) g/dL Lipase (23-300) U/L Disposition Clinical Impression: Common bile duct obstruction, Jaundice Disposition: OTHER INSTITUTION NOT DEFINED Condition: Critical Is patient prescribed a controlled substance at d/c from ED?: No Referrals: Alex Gomez MD [Primary Care Provider] - 1-2 days - Out of Hospital Transfer - Req. Specs Out of Hospital Transfer - Requested Specifics: Other Emergency Center
[2021-09-27 22:29] LABS: INR 1.3 (<1.2)
[2021-09-27 22:30] LABS: Partial Thromboplastin Time 31.2 sec (22.0-30.0); Prothrombin Time 13.7 sec (9.0-12.0)
--- NOTE | 2021-09-27 22:56 | CT ---
EXAMINATION TYPE: CT abdomen pelvis w con DATE OF EXAM: 09/27/2021 COMPARISON: 02/25/2021 HISTORY: pain CT DLP: 1042.9 mGycm Automated exposure control for dose reduction was used. CONTRAST: Performed with IV Contrast, patient injected with 80 mL of Isovue 300. Images obtained from the diaphragm to the floor the pelvis with IV contrast. There is some mild atelectasis at the lung bases. Heart size is fairly normal. There is cardiac surge ry. No pericardial effusion. No pleural effusion. The bile ducts are dilated and there are multiple calculi in the common bile duct. Common bile duct m easures up to 2 cm. There is apparent obstructing calculus at the distal common bile duct. The spleen is intact. There is no pancreatic mass. The stomach is intact. No discrete liver mass. There is no adrenal mass. Kidneys show satisfactory contrast opacification. There is no hydronephrosi s. Ureters are not dilated. There is 2 cm cortical cyst lower pole left kidney. There is no retroperi toneal adenopathy. The bladder distends smoothly. There is anterior abdominal wall ventral hernia con tains multiple loops of bowel. No bowel obstruction. There are multiple sigmoid diverticula. No diver ticulitis. Appendix is small and appears normal. The lumbar vertebrae have fairly normal alignment. There is multilevel vacuum disc. No compression fr acture. The bony pelvis is intact. Hip joints are intact. No mesenteric edema. No ascites or free air. No sign of a mechanical bowel obstruction. IMPRESSION: Numerous gallstones in the common bile duct. Obstructing calculus in the distal common bile duct. Mil d subsegmental atelectasis at the lung bases. There is clearing of the pleural effusions and the dilated stomach compared to old exam. There is low er anterior abdominal wall ventral hernia which is smaller than old exam. There is reduction of the l arge epigastric ventral hernia containing the stomach compared to old exam. The numerous common duct stones appear not significantly different than old exam. The dilation of the biliary tree is significantly increased compared to old exam.
[2021-09-27] MEDS ORDERED: PIPERACILLIN-TAZOBACTAM 3.375 GM in SODIUM CHLORIDE 0.9% 100 ML IVPB STA (23:02)
[2021-09-27] MEDS ORDERED: SODIUM CHLORIDE 0.9% 500 ML 500 ML IV ONE (23:02)
[2021-09-28 00:13] VITALS: BP 100/58; PULSE 80
[2021-09-28 00:34] LABS: Amorphous Sediment,Urine Occasional /hpf; Appearance,Urine Turbid (Clear); Bilirubin,Urine 2+ (Negative); Blood,Urine Small (Negative); Color,Urine Dark Orange; Glucose,Urine (UA) Negative (Negative); Hyaline Casts,Urine 62 /lpf (0-2); Ketones,Urine Negative (Negative); Leukocyte Esterase,Urine Large (Negative); Mucus,Urine Occasional /hpf; Nitrite,Urine Negative (Negative); PH, Urine 5.5 (5.0-8.0); Protein,Urine 1+ (Negative); RBC,Urine 9 /hpf (0-5); Specific Gravity,Urine 1.027 (1.001-1.035); Squamous Epithelial Cell,Urine 16 /hpf (0-4); WBC,Urine 18 /hpf (0-5)
== END 2021-09-28 00:15 | disposition other institution (70) ==
LOC: EC 21:13
DX: K83.1 Obstruction of bile duct (principal); R17 Unspecified jaundice; D72.829 Elevated white blood cell count, unspecified; D64.9 Anemia, unspecified; I10 Essential (primary) hypertension; I48.91 Unspecified atrial fibrillation; E78.5 Hyperlipidemia, unspecified; K21.9 Gastro-esophageal reflux disease without esophagitis; Z86.718 Personal history of other venous thrombosis and embolism; Z87.891 Personal history of nicotine dependence; Z79.01 Long term (current) use of anticoagulants; Z79.899 Other long term (current) drug therapy
CPT/HCPCS: 36415; 80053; 82140; 83605; 83690; 85025; 85610; 85730; 81001; 87086; 74018; 74177; 99285; 96365; J2543; Q9967; 93005